=== PATIENT | female | born 1960 | race Caucasian/White ===

== ENCOUNTER 2016-04-07 11:43 | Inpatient (IN) | payer OTHER ==
[~2016-04-07] VITALS: Ht 154.9 cm; Wt 100.4 kg
[~2016-04-07 11:43] MED LIST: ATOR10TA60 PO; HYDR12.53 PO; METF500T4 PO; PROAIR HFA8.5 GM INH
[2016-04-07] MEDS ORDERED: IPRATRPIUM/ALBUTEROL 0.5/2.5MG 3 ML NEBU. NEB ONE (13:30)
[2016-04-07] MEDS ORDERED: methylPREDNISolone SOD SUCC PF 125 MG/2 ML VIAL. IV ONE (13:30)
[2016-04-07] MEDS ORDERED: IV NORMAL SALINE 1000ML BAG 1,000 ML IV SCH (13:30)
--- NOTE | 2016-04-07 13:40 | PHYS DOC ---
Past Medical History Past Medical History: Asthma, COPD, Diabetes-Type II, Hypertension Past Surgical History: No Surgical History Alcohol Use: None Drug Use: None Adult General Chief Complaint Chief Complaint: ABDOMINAL PAIN HPI HPI Patient is a 55 year old female who presents with complaint of cough, shortness of breath, and upper abdominal pain that started yesterday. The patient states that she is having belly pain secondary to her cough. Symptoms started suddenly. The patient went to see her primary physician this morning. Patient had a flu test which was positive. The patient was sent here due to respiratory distress. The patient denies any history of COPD or lung disease. The patient was found to have oxygen saturation in the upper 80s and was started on supplemental oxygen prior to arrival. Review of Systems Review of Systems Constitutional: Fever, chills, bodyaches [] Eyes: Denies change in visual acuity, redness, or eye pain [] HENT: Denies nasal congestion or sore throat [] Respiratory: Cough, shortness of breath [] Cardiovascular: Denies chest pain or edema [] GI: Abdominal pain, denies nausea, vomiting, bloody stools or diarrhea [] : Denies dysuria or hematuria [] Musculoskeletal: Denies back pain or joint pain [] Integument: Denies rash or skin lesions [] Neurologic: Denies headache, focal weakness or sensory changes [] Endocrine: Denies polyuria or polydipsia [] Current Medications Current Medications Current Medications Medications (Trade) Dose Ordered Sig/Marcus Start Time Stop Time Status Last Admin Dose Admin Acetaminophen (Tylenol) 650 mg PRN Q4HRS PRN 04/07/16 15:15 04/08/16 15:14 Albuterol/ Ipratropium (Duoneb) 3 ml RTQID 04/07/16 16:00 04/08/16 15:59 Fentanyl Citrate 50 mcg 50 mcg PRN Q2HR PRN 04/07/16 15:15 04/08/16 15:14 Methylprednisolone Sodium Succinate (Solu-Medrol 40mg Vial) 60 mg Q6HRS 04/07/16 18:00 UNV Methylprednisolone Sodium Succinate (Solu-Medrol 125mg Vial) 125 mg 1X ONCE 04/07/16 13:30 04/07/16 13:31 DC 04/07/16 13:37 125 MG Ondansetron HCl (Zofran) 4 mg PRN Q8HRS PRN 04/07/16 15:15 04/08/16 15:14 Oseltamivir Phosphate (Tamiflu) 75 mg BID 04/07/16 15:15 04/12/16 15:14 Sodium Chloride (Iv Sodium Chloride 0.9% 1000ml Bag) 1,000 ml @ 125 mls/hr Q8H 04/07/16 15:11 04/08/16 15:10 Allergies Allergies Allergies Coded Allergies Type Severity Reaction Last Updated Verified No Known Drug Allergies 02/08/16 No Physical Exam Physical Exam Constitutional: Alert, febrile, appears in mild to moderate restriction stress. [] HENT: Normocephalic, atraumatic, bilateral external ears normal, oropharynx moist, no oral exudates, nose normal. [] Eyes: PERRLA, EOMI, conjunctiva normal, no discharge. [] Neck: Normal range of motion, no tenderness, supple, no stridor. [] Cardiovascular: Tachycardia, regular rhythm, no murmur [] Lungs & Thorax: Moderately restricted air movement bilaterally, expiratory wheezes bilaterally, right lower lobe rales [] Abdomen: Bowel sounds normal, soft, no tenderness, no masses, no pulsatile masses. [] Skin: Warm, dry, no erythema, no rash. [] Back: No tenderness, no CVA tenderness. [] Extremities: No tenderness, no cyanosis, no clubbing, ROM intact, no edema. [] Neurologic: Alert and oriented X 3, normal motor function, normal sensory function, no focal deficits noted. [] Current Patient Data Vital Signs Vital Signs Date Time Temp Pulse Resp B/P Pulse Ox O2 Delivery O2 Flow Rate FiO2 04/07/16 15:16 20 170/72 94 Nasal Cannula 3 04/07/16 14:00 94 04/07/16 13:04 102 102.0 Lab Values Laboratory Tests Test 04/07/16 13:30 04/07/16 14:25 White Blood Count 11.3x10^3/uL (4.0-11.0) H Red Blood Count 5.17x10^6/uL (3.50-5.40) Hemoglobin 13.5g/dL (12.0-15.5) Hematocrit 41.4% (36.0-47.0) Mean Corpuscular Volume 80fL (79-100) Mean Corpuscular Hemoglobin 26pg (25-35) Mean Corpuscular Hemoglobin Concent 33g/dL (31-37) Red Cell Distribution Width 19.3% (11.5-14.5) H Platelet Count 250x10^3/uL (140-400) Neutrophils (%) (Auto) 88% (31-73) H Lymphocytes (%) (Auto) 8% (24-48) L Monocytes (%) (Auto) 4% (0-9) Eosinophils (%) (Auto) 0% (0-3) Basophils (%) (Auto) 0% (0-3) Neutrophils # (Auto) 10.0x10^3uL (1.8-7.7) H Lymphocytes # (Auto) 0.9x10^3/uL (1.0-4.8) L Monocytes # (Auto) 0.4x10^3/uL (0.0-1.1) Eosinophils # (Auto) 0.0x10^3/uL (0.0-0.7) Basophils # (Auto) 0.0x10^3/uL (0.0-0.2) Platelet Estimate Pending Lactic Acid Level 1.2mmol/L (0.4-2.0) Sodium Level 137mmol/L (136-145) Potassium Level 3.4mmol/L (3.5-5.1) L Chloride Level 97mmol/L (98-107) L Carbon Dioxide Level 27mmol/L (21-32) Anion Gap 13 (6-14) Blood Urea Nitrogen 15mg/dL (7-20) Creatinine 1.0mg/dL (0.6-1.0) Estimated GFR (Cockcroft-Gault) 57.4 BUN/Creatinine Ratio 15 (6-20) Glucose Level 165mg/dL (70-99) H Calcium Level 9.0mg/dL (8.5-10.1) Total Bilirubin 0.4mg/dL (0.2-1.0) Aspartate Amino Transferase (AST) 26U/L (15-37) Alanine Aminotransferase (ALT) 37U/L (14-59) Alkaline Phosphatase 94U/L (46-116) Total Protein 7.7g/dL (6.4-8.2) Albumin 3.2g/dL (3.4-5.0) L Albumin/Globulin Ratio 0.7 (1.0-1.7) L Laboratory Tests 04/07/16 13:30 Laboratory Tests 04/07/16 14:25 EKG EKG Not performed [] Radiology/Procedures Radiology/Procedures [facility] [address] [place] [address] IMAGING REPORT Signed PATIENT: GRACIA DOE ACCOUNT: [id number] : 1960 LOCATION: ER AGE: 55 SEX: F EXAM STATUS: REG ER ORD. PHYSICIAN: SIMA RG MD REASON: shortness of breath, COUGH, WEAKNESS, FATIGUE, SINCE YESTERDAY PROCEDURE: PORTABLE CHEST 1V Portable chest, 04/07/2016: History: Shortness of breath, cough, weakness The heart size and pulmonary vascularity are normal. The aortic knob is prominent. There is mild infiltrate laterally in the right lower chest. The left lung is clear. There is no evidence of pleural fluid. IMPRESSION: Mild peripheral infiltrate in the right base raising the possibility of pneumonia. Radiographic follow-up is suggested. DICTATED and SIGNED BY: MALISSA GIMENEZ MD DATE: 04/07/16 3578 CC: SIMA RG MD; JANN GARCIA MD ~ [] Course & Med Decision Making Course & Med Decision Making Pertinent Labs and Imaging studies reviewed. (See chart for details) Patient started on DuoNeb treatments in the emergency department. The patient will continue on supplemental oxygen due to continued hypoxia. Patient started on Tamiflu. I spoke with Dr. Holloway who accepted care of patient in hospital. Dragon Disclaimer Dragon Disclaimer This electronic medical record was generated, in whole or in part, using a voice recognition dictation system. Departure Departure Impression: Primary Impression: Influenza Additional Impressions: Hypoxia Pneumonia Disposition: ADMITTED INPATIENT Admitting Physician: Phuong Holloway Condition: GUARDED Referrals: JANN GARCIA MD (PCP) Problem Qualifiers Additional Impressions: Pneumonia Pneumonia type: due to influenza A virus Laterality: right Lung location: lower lobe of lung Qualified Code: J11.00 - Influenza due to unidentified influenza virus with unspecified type of pneumonia SIMA RG MD Apr 07, 2016 13:40
--- NOTE | 2016-04-07 13:49 | RAD ---
Portable chest, 04/07/2016: History: Shortness of breath, cough, weakness The heart size and pulmonary vascularity are normal. The aortic knob is prominent. There is mild infiltrate laterally in the right lower chest. The left lung is clear. There is no evidence of pleural fluid. IMPRESSION: Mild peripheral infiltrate in the right base raising the possibility of pneumonia. Radiographic follow-up is suggested.
[2016-04-07 13:53] LABS: BASO % 0 % (0-3); EOS % 0 % (0-3); HEMATOCRIT 41.4 % (36.0-47.0); HEMOGLOBIN 13.5 g/dL (12.0-15.5); LYMPH # 0.9 x10^3/uL (1.0-4.8); LYMPH % 8 % (24-48); MEAN CORPUSCULAR HEMOGLOBIN 26 pg (25-35); MEAN CORPUSCULAR HGB CONC 33 g/dL (31-37); MEAN CORPUSCULAR VOLUME 80 fL (79-100); MONO % 4 % (0-9); NEUT % 88 % (31-73); PLATELET COUNT 250 x10^3/uL (140-400); RED BLOOD COUNT 5.17 x10^6/uL (3.50-5.40); RED CELL DISTRIBUTION WIDTH 19.3 % (11.5-14.5); WHITE BLOOD COUNT 11.3 x10^3/uL (4.0-11.0)
[2016-04-07] MEDS ORDERED: ACETAMINOPHEN 325 MG TABLET. PO ONE (14:30)
[2016-04-07 14:45] LABS: GFR 57.4; POTASSIUM 3.4 mmol/L (3.5-5.1)
[2016-04-07 14:50] LABS: ALBUMIN 3.2 g/dL (3.4-5.0); ALBUMIN/GLOBULIN RATIO 0.7 (1.0-1.7); TOTAL BILIRUBIN 0.4 mg/dL (0.2-1.0); TOTAL PROTEIN 7.7 g/dL (6.4-8.2)
[2016-04-07] MEDS: OSELTAMIVIR 75 MG CAPSULE PO SCH ×2 (15:15→21:30)
[2016-04-07] MEDS ORDERED: FENTANYL PF 100 MCG/2 ML VIAL. IV PRN (15:15)
[2016-04-07] MEDS ORDERED: ONDANSETRON PF 4 MG/2 ML VIAL. IV PRN (15:15)
--- NOTE | 2016-04-07 17:34 | ACF ---
Admission Forms Criteria PULMONARY DISEASE GRG Clinical Indications for Admission to Inpatient Care ( Place 'X' for any and all applicable criteria): Hospital admission is needed for appropriate care of the patient because of ANY ONE of the following(1): [ ]I. Impending or actual respiratory arrest ( Use Respiratory Failure Criteria for severe respiratory disease and long-term mechanical ventilation patients) (4) [ ]II. Severe airflow or ventilation abnormalities (not responsive to emergency and observation care treatment as appropriate) as indicated by ANY ONE of the following(5)(6)(7)(8) : [ ]a) PCO2 > 42 mm Hg (5.6 kPa) and pH < 7.35 (new) [ ]b) Documented PCO2 increase > 5 mm Hg (0.7 kPa) from disease baseline [ ]c) Airflow measurements[A] < 60% of previous best or predicted ( e.g., PEF <300 L/minute) despite intensive emergent treatment[B] [ ]d) Required respiratory treatments that are performable only in acute inpatient setting [ ]III. Severe respiratory findings (not responsive to emergency and observation care treatment as appropriate) including ANY ONE of the following(5)(8)(9): [ ]a) Respiratory distress as indicated by ALL of the following(5)(10): [ ]i) Patient with ANY ONE of the following: [ ]1) Dyspnea (difficulty breathing) [ ]2) Abnormal breathing pattern (eg, chest retractions) [ ]3) Tachypnea [ ]4) Other evidence of difficulty breathing [ ]ii) Evidence of respiratory compromise indicated by ANY ONE of the following: [ ]1) Hypoxemia [ ]2) Altered mental status [ ]3) Other evidence of respiratory compromise (eg, pulmonary edema on chest x-ray) [ ]b) Stridor [ ]c) Gross hemoptysis(11) [ ]d) Acute cyanosis [X]IV. High-risk pulmonary infection as indicated by ANY ONE of the following( 19)(20)(21)(22): [ ]a) Temperature less than 95 degrees F(35 degrees C) or greater than 103.1 degrees F(39.5 degrees C) [ ]b) Hemodynamic instability that remains after emergency or observation level care (as appropriate) [ ]c) Immunocompromised patient (eg, AIDS, post transplant, neutropenic) [ ]d) History of severe COPD [ ]e) History of severely symptomatic congestive heart failure [ ]f) Other high-risk comorbidity (eg, poorly controlled diabetes, cirrhosis, chronic renal insufficiency) [X]g) Hypoxemia (new) [ ]h) Outpatient, observation, or recovery facility therapy has failed, is not appropriate, or is not feasible [ ]V. Severe atelectasis or lung collapse(15)(16) [ ]. Tuberculosis requiring inpatient treatment as indicated by ANY ONE of the following(17)(18): [ ]a) New positive acid-fast bacilli sputum smear [ ]b) Positive acid-fast bacilli smear (under current treatment), with ANY ONE of the following: [ ]i) Unexposed household contacts [ ]ii) Infants or immunosuppressed household contacts [ ]iii) Patient unable or unwilling to avoid exposing others [ ]iv) Severe immunocompromised patient (eg, AIDS, post transplant, neutropenic) [ ]VII. Empyema or lung abscess(13)(14) [ ]VIII. Severe pulmonary arterial hypertension or pulmonary vascular disease requiring inpatient care indicated by ANY ONE of the following(24)(25): [ ]a) Initiation or change of vasodilators (IV, subcutaneous, or inhaled) or other vasoactive medications needed [ ]b) IV anticoagulation needed (eg, immediate anticoagulation necessary, alternatives not appropriate) [ ]c) Arterial or pulmonary artery catheter monitoring needed due to infusion or other treatment [ ]IX. Chronic lung disease with severe deterioration (not responsive to emergency and observation care treatment as appropriate) as indicated by ANY ONE of the following (6)(12): [ ]a) SaO2 5% below baseline in patient with chronic hypoxemia [ ]b) New requirement for supplemental oxygen to keep SaO2 at baseline or acceptable level [ ]c) Required supplemental oxygen performable only in acute inpatient setting [ ]d) Severe airflow or ventilation abnormalities [ ]e) Rapid rate of exacerbation onset [ ]f) Previously mobile patient unable to walk between rooms [ ]g) Inability to eat or sleep due to dyspnea [ ]h) Altered mental status [ ]X. Cystic fibrosis with severe deterioration as indicated by ANY ONE of the following(26)(27): [ ]a) Severe exacerbation that does not respond to intensified home therapy [ ]b) Pneumonia [ ]c) Hemoptysis [ ]d) Atelectasis [ ]e) Pneumothorax [ ]f) Respiratory failure [ ]g) Severe exacerbation with patient unable to perform prescribed treatments at home [ ]XI. Severe right heart failure as indicated by ANY ONE of the following(24) (25): [ ]a) Increasing organ failure (eg, liver congestion with significant and worsening or new elevation of transaminases) [ ]b) Anasarca [ ]c) Angina that requires inpatient care (eg, not treatable in emergency or observation level of care) [ ]d) Respiratory distress [ ]e) Syncope [ ]f) SBP < 90 mm Hg (new) [ ]XII. Injury requiring inpatient care (medical) as indicated by ANY ONE of the following(28): [ ]a) Significant inhalation injury (eg, smoke inhalation, other toxic inhalation) (29)(30)(31) [ ]b) Airway obstruction that remains or is unstable after emergency or observation level care(32) [ ]c) Severe pain requiring acute inpatient management [ ]d) Lung contusion [ ]e) Bronchial tree injury [ ]f) Air or fat emboli(33) [ ]g) Other injury not treatable in emergency or observation level care (eg, hemothorax) (34) [ ]XIII. Pulmonary hemorrhage or significant hemoptysis(11)(35)(36) [ ]XIV. Inpatient palliative care needed[C](37)(38)(39)(40) [ ]XV. Complications of lung transplant (eg, rejection, failure, respiratory infection) (23) [ ]XVI. Pulmonary Disease and ANY ONE of the following: [ ]a) General Admission Criteria [ ]b) Pediatric General Admission Criteria The original [facility] content created by [facility] has been revised. The portions of the content which have been revised are identified through the use of italic text or in bold, and [facility] has neither reviewed nor approved the modified material. All other unmodified content is copyright [facility]. Please see references footnoted in the original [facility] edition 2016 Admission Criteria Met?: Yes ELISEO FERRIS Apr 07, 2016 17:34
[2016-04-07 17:49] LABS: % BASOS 1 % (0-3)
[2016-04-07 17:51] LABS: ANISOCYTOSIS SLIGHT; PLT ESTIMATE ADEQUATE (ADEQUATE); TOXIC GRANULATION SLIGHT
[2016-04-07] MEDS: IPRATRPIUM/ALBUTEROL 0.5/2.5MG 3 ML NEBU. NEB SCH (18:15)
[2016-04-07 19:00] VITALS: BP 122/62
--- NOTE | 2016-04-07 19:48 | PDOC ---
PULMONARY PROGRESS NOTES Vitals Vital Signs Date Time Temp Pulse Resp B/P Pulse Ox O2 Delivery O2 Flow Rate FiO2 04/07/16 18:15 92 Nasal Cannula 3.0 04/07/16 17:32 81 128/64 04/07/16 16:15 20 04/07/16 13:04 102 102.0 Labs Laboratory Tests Test 04/07/16 13:30 04/07/16 14:25 White Blood Count 11.3x10^3/uL (4.0-11.0) Red Blood Count 5.17x10^6/uL (3.50-5.40) Hemoglobin 13.5g/dL (12.0-15.5) Hematocrit 41.4% (36.0-47.0) Mean Corpuscular Volume 80fL (79-100) Mean Corpuscular Hemoglobin 26pg (25-35) Mean Corpuscular Hemoglobin Concent 33g/dL (31-37) Red Cell Distribution Width 19.3% (11.5-14.5) Platelet Count 250x10^3/uL (140-400) Neutrophils (%) (Auto) 88% (31-73) Lymphocytes (%) (Auto) 8% (24-48) Monocytes (%) (Auto) 4% (0-9) Eosinophils (%) (Auto) 0% (0-3) Basophils (%) (Auto) 0% (0-3) Neutrophils # (Auto) 10.0x10^3uL (1.8-7.7) Lymphocytes # (Auto) 0.9x10^3/uL (1.0-4.8) Monocytes # (Auto) 0.4x10^3/uL (0.0-1.1) Eosinophils # (Auto) 0.0x10^3/uL (0.0-0.7) Basophils # (Auto) 0.0x10^3/uL (0.0-0.2) Segmented Neutrophils % 52% (35-66) Band Neutrophils % 29% (0-9) Lymphocytes % 13% (24-48) Monocytes % 5% (0-10) Basophils % 1% (0-3) Toxic Granulation Slight Platelet Estimate Adequate (ADEQUATE) Anisocytosis Slight Lactic Acid Level 1.2mmol/L (0.4-2.0) Sodium Level 137mmol/L (136-145) Potassium Level 3.4mmol/L (3.5-5.1) Chloride Level 97mmol/L (98-107) Carbon Dioxide Level 27mmol/L (21-32) Anion Gap 13 (6-14) Blood Urea Nitrogen 15mg/dL (7-20) Creatinine 1.0mg/dL (0.6-1.0) Estimated GFR (Cockcroft-Gault) 57.4 BUN/Creatinine Ratio 15 (6-20) Glucose Level 165mg/dL (70-99) Calcium Level 9.0mg/dL (8.5-10.1) Total Bilirubin 0.4mg/dL (0.2-1.0) Aspartate Amino Transf (AST/SGOT) 26U/L (15-37) Alanine Aminotransferase (ALT/SGPT) 37U/L (14-59) Alkaline Phosphatase 94U/L (46-116) Total Protein 7.7g/dL (6.4-8.2) Albumin 3.2g/dL (3.4-5.0) Albumin/Globulin Ratio 0.7 (1.0-1.7) Laboratory Tests Test 04/07/16 13:30 04/07/16 14:25 White Blood Count 11.3x10^3/uL (4.0-11.0) Red Blood Count 5.17x10^6/uL (3.50-5.40) Hemoglobin 13.5g/dL (12.0-15.5) Hematocrit 41.4% (36.0-47.0) Mean Corpuscular Volume 80fL (79-100) Mean Corpuscular Hemoglobin 26pg (25-35) Mean Corpuscular Hemoglobin Concent 33g/dL (31-37) Red Cell Distribution Width 19.3% (11.5-14.5) Platelet Count 250x10^3/uL (140-400) Neutrophils (%) (Auto) 88% (31-73) Lymphocytes (%) (Auto) 8% (24-48) Monocytes (%) (Auto) 4% (0-9) Eosinophils (%) (Auto) 0% (0-3) Basophils (%) (Auto) 0% (0-3) Neutrophils # (Auto) 10.0x10^3uL (1.8-7.7) Lymphocytes # (Auto) 0.9x10^3/uL (1.0-4.8) Monocytes # (Auto) 0.4x10^3/uL (0.0-1.1) Eosinophils # (Auto) 0.0x10^3/uL (0.0-0.7) Basophils # (Auto) 0.0x10^3/uL (0.0-0.2) Segmented Neutrophils % 52% (35-66) Band Neutrophils % 29% (0-9) Lymphocytes % 13% (24-48) Monocytes % 5% (0-10) Basophils % 1% (0-3) Toxic Granulation Slight Platelet Estimate Adequate (ADEQUATE) Anisocytosis Slight Lactic Acid Level 1.2mmol/L (0.4-2.0) Sodium Level 137mmol/L (136-145) Potassium Level 3.4mmol/L (3.5-5.1) Chloride Level 97mmol/L (98-107) Carbon Dioxide Level 27mmol/L (21-32) Anion Gap 13 (6-14) Blood Urea Nitrogen 15mg/dL (7-20) Creatinine 1.0mg/dL (0.6-1.0) Estimated GFR (Cockcroft-Gault) 57.4 BUN/Creatinine Ratio 15 (6-20) Glucose Level 165mg/dL (70-99) Calcium Level 9.0mg/dL (8.5-10.1) Total Bilirubin 0.4mg/dL (0.2-1.0) Aspartate Amino Transf (AST/SGOT) 26U/L (15-37) Alanine Aminotransferase (ALT/SGPT) 37U/L (14-59) Alkaline Phosphatase 94U/L (46-116) Total Protein 7.7g/dL (6.4-8.2) Albumin 3.2g/dL (3.4-5.0) Albumin/Globulin Ratio 0.7 (1.0-1.7) Medications Active Scripts Medications Dose Route/Sig Days Date Category Metformin Hcl 500 Mg Tablet 1 Tab PO BID 02/08/16 Reported Proair Hfa Inhaler (Albuterol Sulfate) 8.5 Gm Hfa.aer.ad 1 Puff INH PRN Q6HRS PRN 02/08/16 Reported Hydrochlorothiazide Capsule (Hydrochlorothiazide) 12.5 Mg Capsule 1 Cap PO DAILY 02/08/16 Reported Atorvastatin Calcium 10 Mg Tablet 1 Tab PO DAILY 02/08/16 Reported Impression . ACUTE RESP FAILURE/PNEUMONIA INFLUENZA SEE ORDERS THANKS ESTRELLA HEATH MD Apr 07, 2016 19:48
[2016-04-07] MEDS ORDERED: ALBUTEROL SULFATE 2.5 MG/3 ML NEBU. NEB PRN (20:00)
[2016-04-07] MEDS: IV NORMAL SALINE 1000ML BAG 1,000 ML IV SCH ×2 (21:14→23:11)
[2016-04-07] MEDS: ENOXAPARIN 40 MG/0.4 ML DISP.SYRIN. SQ SCH (21:18)
[2016-04-07] MEDS: ACETAMINOPHEN 325 MG TABLET. PO PRN (21:18)
[2016-04-07] MEDS: methylPREDNISolone SOD SUCC PF 125 MG/2 ML VIAL. IV SCH (21:19)
[2016-04-07] MEDS: CEFTRIAXONE SODIUM 1 GM in IV NORMAL SALINE 50ML 50 ML IV SCH (21:20)
[2016-04-07] MEDS: DOXYCYCLINE HYCLATE 100 MG in IV DEXTROSE 5% 100 ML IV SCH (22:53)
[2016-04-07 23:00] VITALS: BP 129/77
[2016-04-08] MEDS: ACETAMINOPHEN 325 MG TABLET. PO PRN (01:35)
[2016-04-08] MEDS: methylPREDNISolone SOD SUCC PF 125 MG/2 ML VIAL. IV SCH ×4 (01:36→17:34)
[2016-04-08] MEDS ORDERED: ESOM40CA PO (02:33)
[2016-04-08] MEDS ORDERED: METF750T2 PO (02:33)
[2016-04-08] MEDS ORDERED: FEXO180T81 PO (02:33)
[2016-04-08] MEDS ORDERED: ESTR1TAB15 PO (02:34)
[2016-04-08 03:00] VITALS: BP 121/75
--- NOTE | 2016-04-08 06:11 | PDOC ---
PULMONARY PROGRESS NOTES Vitals Vital Signs Date Time Temp Pulse Resp B/P Pulse Ox O2 Delivery O2 Flow Rate FiO2 04/08/16 03:00 97.5 91 20 121/75 93 Venturi Mask 4.0 97.5 Labs Laboratory Tests Test 04/07/16 13:30 04/07/16 14:25 04/07/16 21:12 White Blood Count 11.3x10^3/uL (4.0-11.0) Red Blood Count 5.17x10^6/uL (3.50-5.40) Hemoglobin 13.5g/dL (12.0-15.5) Hematocrit 41.4% (36.0-47.0) Mean Corpuscular Volume 80fL (79-100) Mean Corpuscular Hemoglobin 26pg (25-35) Mean Corpuscular Hemoglobin Concent 33g/dL (31-37) Red Cell Distribution Width 19.3% (11.5-14.5) Platelet Count 250x10^3/uL (140-400) Neutrophils (%) (Auto) 88% (31-73) Lymphocytes (%) (Auto) 8% (24-48) Monocytes (%) (Auto) 4% (0-9) Eosinophils (%) (Auto) 0% (0-3) Basophils (%) (Auto) 0% (0-3) Neutrophils # (Auto) 10.0x10^3uL (1.8-7.7) Lymphocytes # (Auto) 0.9x10^3/uL (1.0-4.8) Monocytes # (Auto) 0.4x10^3/uL (0.0-1.1) Eosinophils # (Auto) 0.0x10^3/uL (0.0-0.7) Basophils # (Auto) 0.0x10^3/uL (0.0-0.2) Segmented Neutrophils % 52% (35-66) Band Neutrophils % 29% (0-9) Lymphocytes % 13% (24-48) Monocytes % 5% (0-10) Basophils % 1% (0-3) Toxic Granulation Slight Platelet Estimate Adequate (ADEQUATE) Anisocytosis Slight Lactic Acid Level 1.2mmol/L (0.4-2.0) Sodium Level 137mmol/L (136-145) Potassium Level 3.4mmol/L (3.5-5.1) Chloride Level 97mmol/L (98-107) Carbon Dioxide Level 27mmol/L (21-32) Anion Gap 13 (6-14) Blood Urea Nitrogen 15mg/dL (7-20) Creatinine 1.0mg/dL (0.6-1.0) Estimated GFR (Cockcroft-Gault) 57.4 BUN/Creatinine Ratio 15 (6-20) Glucose Level 165mg/dL (70-99) Calcium Level 9.0mg/dL (8.5-10.1) Total Bilirubin 0.4mg/dL (0.2-1.0) Aspartate Amino Transf (AST/SGOT) 26U/L (15-37) Alanine Aminotransferase (ALT/SGPT) 37U/L (14-59) Alkaline Phosphatase 94U/L (46-116) Total Protein 7.7g/dL (6.4-8.2) Albumin 3.2g/dL (3.4-5.0) Albumin/Globulin Ratio 0.7 (1.0-1.7) Glucose (Fingerstick) 193mg/dL (70-99) Laboratory Tests Test 04/07/16 13:30 04/07/16 14:25 04/07/16 21:12 White Blood Count 11.3x10^3/uL (4.0-11.0) Red Blood Count 5.17x10^6/uL (3.50-5.40) Hemoglobin 13.5g/dL (12.0-15.5) Hematocrit 41.4% (36.0-47.0) Mean Corpuscular Volume 80fL (79-100) Mean Corpuscular Hemoglobin 26pg (25-35) Mean Corpuscular Hemoglobin Concent 33g/dL (31-37) Red Cell Distribution Width 19.3% (11.5-14.5) Platelet Count 250x10^3/uL (140-400) Neutrophils (%) (Auto) 88% (31-73) Lymphocytes (%) (Auto) 8% (24-48) Monocytes (%) (Auto) 4% (0-9) Eosinophils (%) (Auto) 0% (0-3) Basophils (%) (Auto) 0% (0-3) Neutrophils # (Auto) 10.0x10^3uL (1.8-7.7) Lymphocytes # (Auto) 0.9x10^3/uL (1.0-4.8) Monocytes # (Auto) 0.4x10^3/uL (0.0-1.1) Eosinophils # (Auto) 0.0x10^3/uL (0.0-0.7) Basophils # (Auto) 0.0x10^3/uL (0.0-0.2) Segmented Neutrophils % 52% (35-66) Band Neutrophils % 29% (0-9) Lymphocytes % 13% (24-48) Monocytes % 5% (0-10) Basophils % 1% (0-3) Toxic Granulation Slight Platelet Estimate Adequate (ADEQUATE) Anisocytosis Slight Lactic Acid Level 1.2mmol/L (0.4-2.0) Sodium Level 137mmol/L (136-145) Potassium Level 3.4mmol/L (3.5-5.1) Chloride Level 97mmol/L (98-107) Carbon Dioxide Level 27mmol/L (21-32) Anion Gap 13 (6-14) Blood Urea Nitrogen 15mg/dL (7-20) Creatinine 1.0mg/dL (0.6-1.0) Estimated GFR (Cockcroft-Gault) 57.4 BUN/Creatinine Ratio 15 (6-20) Glucose Level 165mg/dL (70-99) Calcium Level 9.0mg/dL (8.5-10.1) Total Bilirubin 0.4mg/dL (0.2-1.0) Aspartate Amino Transf (AST/SGOT) 26U/L (15-37) Alanine Aminotransferase (ALT/SGPT) 37U/L (14-59) Alkaline Phosphatase 94U/L (46-116) Total Protein 7.7g/dL (6.4-8.2) Albumin 3.2g/dL (3.4-5.0) Albumin/Globulin Ratio 0.7 (1.0-1.7) Glucose (Fingerstick) 193mg/dL (70-99) Medications Active Scripts Medications Dose Route/Sig Days Date Category Metformin Hcl 500 Mg Tablet 1 Tab PO BID 02/08/16 Reported Proair Hfa Inhaler (Albuterol Sulfate) 8.5 Gm Hfa.aer.ad 1 Puff INH PRN Q6HRS PRN 02/08/16 Reported Hydrochlorothiazide Capsule (Hydrochlorothiazide) 12.5 Mg Capsule 1 Cap PO DAILY 02/08/16 Reported Atorvastatin Calcium 10 Mg Tablet 1 Tab PO DAILY 02/08/16 Reported Impression . ACUTE RESP FAILURE/PNEUMONIA INFLUENZA SEE ORDERS THANKS ESTRELLA HEATH MD Apr 08, 2016 06:11
[2016-04-08 06:43] LABS: BASO % 0 % (0-3); EOS % 0 % (0-3); HEMATOCRIT 39.5 % (36.0-47.0); HEMOGLOBIN 12.9 g/dL (12.0-15.5); LYMPH # 1.5 x10^3/uL (1.0-4.8); LYMPH % 10 % (24-48); MEAN CORPUSCULAR HEMOGLOBIN 26 pg (25-35); MEAN CORPUSCULAR HGB CONC 33 g/dL (31-37); MEAN CORPUSCULAR VOLUME 79 fL (79-100); MONO % 3 % (0-9); NEUT % 87 % (31-73); PLATELET COUNT 234 x10^3/uL (140-400); RED BLOOD COUNT 4.98 x10^6/uL (3.50-5.40); RED CELL DISTRIBUTION WIDTH 19.2 % (11.5-14.5); WHITE BLOOD COUNT 15.3 x10^3/uL (4.0-11.0)
[2016-04-08 07:00] VITALS: BP 128/80
[2016-04-08 07:00] LABS: CALCIUM 8.8 mg/dL (8.5-10.1); CREATININE 0.9 mg/dL (0.6-1.0); GFR 64.8; POTASSIUM 3.8 mmol/L (3.5-5.1)
--- NOTE | 2016-04-08 07:09 | CONS ---
DATE OF CONSULTATION: 04/07/2016 ATTENDING PHYSICIAN: Dr. Phuong Holloway. REASON FOR CONSULTATION: The patient seen in pulmonary consultation at the request of Dr. Holloway for increasing shortness of breath, hypoxemia. HISTORY OF PRESENT ILLNESS: The patient is a 55-year-old female presented with complaints of shortness of air up to abdominal discomfort, some cough, mostly nonproductive, subjective fever. She presented to the Emergency Room, had a flu test, which was positive. She was in respiratory distress. She was admitted. She was on 4 liters oxygen saturation was in the upper low 80s and was asked to see in consultation. Upon my visit, the patient was in no significant distress. She was mouth breathing. She used to smoke. She does not wear oxygen at home. FAMILY HISTORY: Remarkable for COPD, type 2 diabetes, hypertension. HISTORY: No surgical history. REVIEW OF SYSTEMS: As indicated above, otherwise, a 10-point system was reviewed and negative. CURRENT MEDICATION: List was reviewed. Please see the MRAD. MEDICATIONS: List was likewise reviewed. SOCIAL HISTORY: She quit tobacco. She denies any alcohol intake. PHYSICAL EXAMINATION: GENERAL: The patient was in a recliner 4 L of oxygen supplementation, saturation 84%. VITAL SIGNS: T-max was 102.0. HEENT: Eyes, the sclerae were nonicteric. NECK: Jugular venous distention was not elevated. No lymphadenopathy. CHEST: Full expansion. LUNGS: Rales in the bases. No wheezes. CARDIOVASCULAR: Regular rate and rhythm with S1, S2, no S3. ABDOMEN: Soft, nontender, nondistended. EXTREMITIES: No clubbing, cyanosis or edema. NEUROLOGIC: The patient was awake, alert, following commands. A detailed neuro exam was not performed. Chest x-ray was reviewed. There was infiltrate in the right base. LABORATORY DATA: Reviewed. White count was slightly elevated. Electrolytes were noted. Albumin was slightly low. IMPRESSION: 1. Acute respiratory failure, multifactorial. 2. Acute exacerbation of chronic obstructive pulmonary disease. 3. Pneumonia was suspect gram-positive, possibly gram negative. 4. Fever secondary to above. PLAN: 1. 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 2. Add Rocephin and doxycycline. 3. Solu-Medrol. 4. Nebulized treatments. 5. DVT prophylaxis. I do appreciate the privilege in sharing in patient's care. ESTRELLA HEATH MD DR: SHON/paresh JOB#: [id number] / [id number]
[2016-04-08] MEDS ORDERED: DEXTROSE 50% 25 GM / 50ML DISP.SYRIN. IV PRN (07:45)
[2016-04-08] MEDS: IPRATRPIUM/ALBUTEROL 0.5/2.5MG 3 ML NEBU. NEB SCH ×4 (07:46→20:04)
--- NOTE | 2016-04-08 07:49 | PDOC ---
PROGRESS NOTES Subjective Subjective Patient reports breathing is a little better than at admission, still feels SOA. Objective Objective Vital Signs Date Time Temp Pulse Resp B/P Pulse Ox O2 Delivery O2 Flow Rate FiO2 04/08/16 03:00 97.5 91 20 121/75 93 Venturi Mask 4.0 97.5 Intake and Output 04/08/16 07:00 Intake Total 1000 ml Balance 1000 ml Intake IV Total 1000 ml # Voids 6 Physical Exam Abdomen: Normal bowel sounds, Soft, No tenderness Heart: Regular rate Extremities: No edema General: Alert, Oriented X3, No acute distress Lungs: Other (BS decreased throughout, scant wheezing heard) Assessment Assessment Problems Medical Problems: (1) Hypoxia Status: Acute (2) Influenza Status: Acute (3) Influenza A Status: Acute (4) Pneumonia Status: Acute Plan Plan of Care 1. Acute hypoxic respiratory failure with Influenza, pneumonia and AE COPD - mildly improved overnight, still requiring significant amount of O2 to maintain sats. Continue Tamiflu, abx, Solumedrol, O2 and nebs, Dr Mcintyre following. Patient is a smoker, states she intends to quit. Denies needing a nicotine patch at this time. 2. DM2 - FSBG elevated due to the Solumedrol, continue her usual Metformin and use SS insulin as needed. 3. HTN - resume home med. 4. AR - continue meds daily. 5. GERD - continue PPI. Comment Review of Relevant I have reviewed the following items marily (where applicable) has been applied. Labs Laboratory Tests Test 04/07/16 13:30 04/07/16 14:25 04/07/16 21:12 04/08/16 06:20 White Blood Count 11.3x10^3/uL (4.0-11.0) 15.3x10^3/uL (4.0-11.0) Red Blood Count 5.17x10^6/uL (3.50-5.40) 4.98x10^6/uL (3.50-5.40) Hemoglobin 13.5g/dL (12.0-15.5) 12.9g/dL (12.0-15.5) Hematocrit 41.4% (36.0-47.0) 39.5% (36.0-47.0) Mean Corpuscular Volume 80fL (79-100) 79fL (79-100) Mean Corpuscular Hemoglobin 26pg (25-35) 26pg (25-35) Mean Corpuscular Hemoglobin Concent 33g/dL (31-37) 33g/dL (31-37) Red Cell Distribution Width 19.3% (11.5-14.5) 19.2% (11.5-14.5) Platelet Count 250x10^3/uL (140-400) 234x10^3/uL (140-400) Neutrophils (%) (Auto) 88% (31-73) 87% (31-73) Lymphocytes (%) (Auto) 8% (24-48) 10% (24-48) Monocytes (%) (Auto) 4% (0-9) 3% (0-9) Eosinophils (%) (Auto) 0% (0-3) 0% (0-3) Basophils (%) (Auto) 0% (0-3) 0% (0-3) Neutrophils # (Auto) 10.0x10^3uL (1.8-7.7) 13.4x10^3uL (1.8-7.7) Lymphocytes # (Auto) 0.9x10^3/uL (1.0-4.8) 1.5x10^3/uL (1.0-4.8) Monocytes # (Auto) 0.4x10^3/uL (0.0-1.1) 0.4x10^3/uL (0.0-1.1) Eosinophils # (Auto) 0.0x10^3/uL (0.0-0.7) 0.0x10^3/uL (0.0-0.7) Basophils # (Auto) 0.0x10^3/uL (0.0-0.2) 0.0x10^3/uL (0.0-0.2) Segmented Neutrophils % 52% (35-66) Band Neutrophils % 29% (0-9) Lymphocytes % 13% (24-48) Monocytes % 5% (0-10) Basophils % 1% (0-3) Toxic Granulation Slight Platelet Estimate Adequate (ADEQUATE) Anisocytosis Slight Lactic Acid Level 1.2mmol/L (0.4-2.0) Sodium Level 137mmol/L (136-145) 143mmol/L (136-145) Potassium Level 3.4mmol/L (3.5-5.1) 3.8mmol/L (3.5-5.1) Chloride Level 97mmol/L (98-107) 103mmol/L (98-107) Carbon Dioxide Level 27mmol/L (21-32) 29mmol/L (21-32) Anion Gap 13 (6-14) 11 (6-14) Blood Urea Nitrogen 15mg/dL (7-20) 17mg/dL (7-20) Creatinine 1.0mg/dL (0.6-1.0) 0.9mg/dL (0.6-1.0) Estimated GFR (Cockcroft-Gault) 57.4 64.8 BUN/Creatinine Ratio 15 (6-20) Glucose Level 165mg/dL (70-99) 217mg/dL (70-99) Calcium Level 9.0mg/dL (8.5-10.1) 8.8mg/dL (8.5-10.1) Total Bilirubin 0.4mg/dL (0.2-1.0) Aspartate Amino Transf (AST/SGOT) 26U/L (15-37) Alanine Aminotransferase (ALT/SGPT) 37U/L (14-59) Alkaline Phosphatase 94U/L (46-116) Total Protein 7.7g/dL (6.4-8.2) Albumin 3.2g/dL (3.4-5.0) Albumin/Globulin Ratio 0.7 (1.0-1.7) Glucose (Fingerstick) 193mg/dL (70-99) Laboratory Tests Test 04/07/16 13:30 04/07/16 14:25 04/07/16 21:12 04/08/16 06:20 White Blood Count 11.3x10^3/uL (4.0-11.0) 15.3x10^3/uL (4.0-11.0) Red Blood Count 5.17x10^6/uL (3.50-5.40) 4.98x10^6/uL (3.50-5.40) Hemoglobin 13.5g/dL (12.0-15.5) 12.9g/dL (12.0-15.5) Hematocrit 41.4% (36.0-47.0) 39.5% (36.0-47.0) Mean Corpuscular Volume 80fL (79-100) 79fL (79-100) Mean Corpuscular Hemoglobin 26pg (25-35) 26pg (25-35) Mean Corpuscular Hemoglobin Concent 33g/dL (31-37) 33g/dL (31-37) Red Cell Distribution Width 19.3% (11.5-14.5) 19.2% (11.5-14.5) Platelet Count 250x10^3/uL (140-400) 234x10^3/uL (140-400) Neutrophils (%) (Auto) 88% (31-73) 87% (31-73) Lymphocytes (%) (Auto) 8% (24-48) 10% (24-48) Monocytes (%) (Auto) 4% (0-9) 3% (0-9) Eosinophils (%) (Auto) 0% (0-3) 0% (0-3) Basophils (%) (Auto) 0% (0-3) 0% (0-3) Neutrophils # (Auto) 10.0x10^3uL (1.8-7.7) 13.4x10^3uL (1.8-7.7) Lymphocytes # (Auto) 0.9x10^3/uL (1.0-4.8) 1.5x10^3/uL (1.0-4.8) Monocytes # (Auto) 0.4x10^3/uL (0.0-1.1) 0.4x10^3/uL (0.0-1.1) Eosinophils # (Auto) 0.0x10^3/uL (0.0-0.7) 0.0x10^3/uL (0.0-0.7) Basophils # (Auto) 0.0x10^3/uL (0.0-0.2) 0.0x10^3/uL (0.0-0.2) Segmented Neutrophils % 52% (35-66) Band Neutrophils % 29% (0-9) Lymphocytes % 13% (24-48) Monocytes % 5% (0-10) Basophils % 1% (0-3) Toxic Granulation Slight Platelet Estimate Adequate (ADEQUATE) Anisocytosis Slight Lactic Acid Level 1.2mmol/L (0.4-2.0) Sodium Level 137mmol/L (136-145) 143mmol/L (136-145) Potassium Level 3.4mmol/L (3.5-5.1) 3.8mmol/L (3.5-5.1) Chloride Level 97mmol/L (98-107) 103mmol/L (98-107) Carbon Dioxide Level 27mmol/L (21-32) 29mmol/L (21-32) Anion Gap 13 (6-14) 11 (6-14) Blood Urea Nitrogen 15mg/dL (7-20) 17mg/dL (7-20) Creatinine 1.0mg/dL (0.6-1.0) 0.9mg/dL (0.6-1.0) Estimated GFR (Cockcroft-Gault) 57.4 64.8 BUN/Creatinine Ratio 15 (6-20) Glucose Level 165mg/dL (70-99) 217mg/dL (70-99) Calcium Level 9.0mg/dL (8.5-10.1) 8.8mg/dL (8.5-10.1) Total Bilirubin 0.4mg/dL (0.2-1.0) Aspartate Amino Transf (AST/SGOT) 26U/L (15-37) Alanine Aminotransferase (ALT/SGPT) 37U/L (14-59) Alkaline Phosphatase 94U/L (46-116) Total Protein 7.7g/dL (6.4-8.2) Albumin 3.2g/dL (3.4-5.0) Albumin/Globulin Ratio 0.7 (1.0-1.7) Glucose (Fingerstick) 193mg/dL (70-99) Medications Current Medications Sodium Chloride (Iv Sodium Chloride 0.9% 1000ml Bag) 1,000 ml @ 1,000 mls/hr Q1H IV Last administered on 04/07/16 13:37; Start 04/07/16 at 13:30; Stop at 14:29; Status DC Albuterol/ Ipratropium (Duoneb) 3 ml 1X ONCE NEB Last administered on 13:45; Start 04/07/16 at 13:30; Stop 04/07/16 at 13:31; Status DC Methylprednisolone Sodium Succinate (Solu-Medrol 125mg Vial) 125 mg 1X ONCE IV Last administered on 04/07/16 13:37; Start 04/07/16 at 13:30; Stop 04/07/16 at 13:31; Status DC Acetaminophen (Tylenol) 650 mg 1X ONCE PO Last administered on 04/07/16 14:48 ; Start 04/07/16 at 14:30; Stop 04/07/16 at 14:31; Status DC Ondansetron HCl (Zofran) 4 mg PRN Q8HRS PRN IV NAUSEA/VOMITING; Start 04/07/16 at 15:15; Stop 04/08/16 at 15:14 Fentanyl Citrate 50 mcg 50 mcg PRN Q2HR PRN IV PAIN; Start 04/07/16 at 15:15; Stop 04/08/16 at 15:14 Sodium Chloride (Iv Sodium Chloride 0.9% 1000ml Bag) 1,000 ml @ 125 mls/hr Q8H IV Last administered on 04/07/16 21:14; Start 04/07/16 at 15:11; Stop at 15:10 Acetaminophen (Tylenol) 650 mg PRN Q4HRS PRN PO FEVER Last administered on 04/08 01:35; Start 04/07/16 at 15:15; Stop 04/08/16 at 15:14 Albuterol/ Ipratropium (Duoneb) 3 ml RTQID NEB Last administered on 04/07/16 18:15; Start 04/07/16 at 16:00; Stop 04/08/16 at 15:59 Oseltamivir Phosphate (Tamiflu) 75 mg BID PO Last administered on 04/07/16 21: 30; Start 04/07/16 at 15:15; Stop 04/12/16 at 15:14 Methylprednisolone Sodium Succinate 60 mg 60 mg Q6HRS IV Last administered on 05:39; Start 04/07/16 at 18:00 Ceftriaxone Sodium 1 gm/ Sodium Chloride 50 ml @ 100 mls/hr Q24H IV Last administered on 04/07/16 21:20; Start 04/07/16 at 20:00 Doxycycline Hyclate/Dextrose 100 ml @ 50 mls/hr Q12HR IV Last administered on 04/07/16 22:53; Start 04/07/16 at 21:00 Albuterol Sulfate (Ventolin Neb Soln) 2.5 mg PRN Q2HR PRN NEB DYSPNEA; Start at 20:00 Enoxaparin Sodium (Lovenox 40mg Syringe) 40 mg Q12HR SQ Last administered on 21:18; Start 04/07/16 at 21:00 Active Scripts Active Reported Estradiol 1 Mg Tablet 1 Tab PO DAILY Nexium Capsule (Esomeprazole Magnesium) 40 Mg Capsule.dr 1 Cap PO PRN DAILY PRN Nupur Allergy (Fexofenadine Hcl) 180 Mg Tablet 1 Tab PO DAILY Metformin Hcl Er (Metformin Hcl) 750 Mg Tab.er.24h 1 Tab PO HS Proair Hfa Inhaler (Albuterol Sulfate) 8.5 Gm Hfa.aer.ad 1 Puff INH PRN Q6HRS PRN Hydrochlorothiazide Capsule (Hydrochlorothiazide) 12.5 Mg Capsule 1 Cap PO HS Atorvastatin Calcium 10 Mg Tablet 1 Tab PO HS Vitals/I & O Vital Sign - Last 24 Hours 04/07/16 04/07/16 04/07/16 04/07/16 13:04 13:48 14:00 15:00 Temp 102 102.0 Pulse 92 94 Resp 20 B/P 152/78 148/68 148/71 Pulse Ox 93 92 94 93 O2 Delivery Nasal Cannula Nasal Cannula Nasal Cannula Nasal Cannula O2 Flow Rate 3 3.0 3 3 04/07/16 04/07/16 04/07/16 04/07/16 15:16 16:15 17:32 18:15 Pulse 83 81 Resp 20 B/P 170/72 131/62 128/64 Pulse Ox 94 93 93 92 O2 Delivery Nasal Cannula Nasal Cannula Nasal Cannula Nasal Cannula O2 Flow Rate 3 3 3 3.0 04/07/16 04/07/16 04/07/16 04/08/16 19:00 20:00 23:00 03:00 Temp 97.3 96.8 97.5 97.3 96.8 97.5 Pulse 90 96 91 Resp 20 B/P 122/62 129/77 121/75 Pulse Ox 90 91 93 O2 Delivery Venturi Mask Venturi Mask Venturi Mask Venturi Mask O2 Flow Rate 4.0 12.0 4.0 4.0 Intake and Output 04/07/16 04/07/16 04/08/16 15:00 23:00 07:00 Intake Total 1000 ml Balance 1000 ml ALESHA GARCIA MD Apr 08, 2016 07:48
--- NOTE | 2016-04-08 08:45 | PDOC ---
PULMONARY PROGRESS NOTES Subjective PT WITH NO INCREASE SOA Vitals Vital Signs Date Time Temp Pulse Resp B/P Pulse Ox O2 Delivery O2 Flow Rate FiO2 04/08/16 07:40 87 Venturi Mask 12.0 04/08/16 07:00 97.7 79 18 128/80 97.7 ROS: No Nausea, No Chest Pain, No Abdominal Pain, No Increase Cough General: Alert Lungs: Clear Cardiovascular: S1, S2 Abdomen: Soft Neuro Exam: Alert Extremities: No Edema Skin: Warm Labs Laboratory Tests Test 04/07/16 13:30 04/07/16 14:25 04/07/16 21:12 04/08/16 06:20 White Blood Count 11.3x10^3/uL (4.0-11.0) 15.3x10^3/uL (4.0-11.0) Red Blood Count 5.17x10^6/uL (3.50-5.40) 4.98x10^6/uL (3.50-5.40) Hemoglobin 13.5g/dL (12.0-15.5) 12.9g/dL (12.0-15.5) Hematocrit 41.4% (36.0-47.0) 39.5% (36.0-47.0) Mean Corpuscular Volume 80fL (79-100) 79fL (79-100) Mean Corpuscular Hemoglobin 26pg (25-35) 26pg (25-35) Mean Corpuscular Hemoglobin Concent 33g/dL (31-37) 33g/dL (31-37) Red Cell Distribution Width 19.3% (11.5-14.5) 19.2% (11.5-14.5) Platelet Count 250x10^3/uL (140-400) 234x10^3/uL (140-400) Neutrophils (%) (Auto) 88% (31-73) 87% (31-73) Lymphocytes (%) (Auto) 8% (24-48) 10% (24-48) Monocytes (%) (Auto) 4% (0-9) 3% (0-9) Eosinophils (%) (Auto) 0% (0-3) 0% (0-3) Basophils (%) (Auto) 0% (0-3) 0% (0-3) Neutrophils # (Auto) 10.0x10^3uL (1.8-7.7) 13.4x10^3uL (1.8-7.7) Lymphocytes # (Auto) 0.9x10^3/uL (1.0-4.8) 1.5x10^3/uL (1.0-4.8) Monocytes # (Auto) 0.4x10^3/uL (0.0-1.1) 0.4x10^3/uL (0.0-1.1) Eosinophils # (Auto) 0.0x10^3/uL (0.0-0.7) 0.0x10^3/uL (0.0-0.7) Basophils # (Auto) 0.0x10^3/uL (0.0-0.2) 0.0x10^3/uL (0.0-0.2) Segmented Neutrophils % 52% (35-66) Band Neutrophils % 29% (0-9) Lymphocytes % 13% (24-48) Monocytes % 5% (0-10) Basophils % 1% (0-3) Toxic Granulation Slight Platelet Estimate Adequate (ADEQUATE) Anisocytosis Slight Lactic Acid Level 1.2mmol/L (0.4-2.0) Sodium Level 137mmol/L (136-145) 143mmol/L (136-145) Potassium Level 3.4mmol/L (3.5-5.1) 3.8mmol/L (3.5-5.1) Chloride Level 97mmol/L (98-107) 103mmol/L (98-107) Carbon Dioxide Level 27mmol/L (21-32) 29mmol/L (21-32) Anion Gap 13 (6-14) 11 (6-14) Blood Urea Nitrogen 15mg/dL (7-20) 17mg/dL (7-20) Creatinine 1.0mg/dL (0.6-1.0) 0.9mg/dL (0.6-1.0) Estimated GFR (Cockcroft-Gault) 57.4 64.8 BUN/Creatinine Ratio 15 (6-20) Glucose Level 165mg/dL (70-99) 217mg/dL (70-99) Calcium Level 9.0mg/dL (8.5-10.1) 8.8mg/dL (8.5-10.1) Total Bilirubin 0.4mg/dL (0.2-1.0) Aspartate Amino Transf (AST/SGOT) 26U/L (15-37) Alanine Aminotransferase (ALT/SGPT) 37U/L (14-59) Alkaline Phosphatase 94U/L (46-116) Total Protein 7.7g/dL (6.4-8.2) Albumin 3.2g/dL (3.4-5.0) Albumin/Globulin Ratio 0.7 (1.0-1.7) Glucose (Fingerstick) 193mg/dL (70-99) Test 04/08/16 07:23 Glucose (Fingerstick) 208mg/dL (70-99) Laboratory Tests Test 04/07/16 13:30 04/07/16 14:25 04/07/16 21:12 04/08/16 06:20 White Blood Count 11.3x10^3/uL (4.0-11.0) 15.3x10^3/uL (4.0-11.0) Red Blood Count 5.17x10^6/uL (3.50-5.40) 4.98x10^6/uL (3.50-5.40) Hemoglobin 13.5g/dL (12.0-15.5) 12.9g/dL (12.0-15.5) Hematocrit 41.4% (36.0-47.0) 39.5% (36.0-47.0) Mean Corpuscular Volume 80fL (79-100) 79fL (79-100) Mean Corpuscular Hemoglobin 26pg (25-35) 26pg (25-35) Mean Corpuscular Hemoglobin Concent 33g/dL (31-37) 33g/dL (31-37) Red Cell Distribution Width 19.3% (11.5-14.5) 19.2% (11.5-14.5) Platelet Count 250x10^3/uL (140-400) 234x10^3/uL (140-400) Neutrophils (%) (Auto) 88% (31-73) 87% (31-73) Lymphocytes (%) (Auto) 8% (24-48) 10% (24-48) Monocytes (%) (Auto) 4% (0-9) 3% (0-9) Eosinophils (%) (Auto) 0% (0-3) 0% (0-3) Basophils (%) (Auto) 0% (0-3) 0% (0-3) Neutrophils # (Auto) 10.0x10^3uL (1.8-7.7) 13.4x10^3uL (1.8-7.7) Lymphocytes # (Auto) 0.9x10^3/uL (1.0-4.8) 1.5x10^3/uL (1.0-4.8) Monocytes # (Auto) 0.4x10^3/uL (0.0-1.1) 0.4x10^3/uL (0.0-1.1) Eosinophils # (Auto) 0.0x10^3/uL (0.0-0.7) 0.0x10^3/uL (0.0-0.7) Basophils # (Auto) 0.0x10^3/uL (0.0-0.2) 0.0x10^3/uL (0.0-0.2) Segmented Neutrophils % 52% (35-66) Band Neutrophils % 29% (0-9) Lymphocytes % 13% (24-48) Monocytes % 5% (0-10) Basophils % 1% (0-3) Toxic Granulation Slight Platelet Estimate Adequate (ADEQUATE) Anisocytosis Slight Lactic Acid Level 1.2mmol/L (0.4-2.0) Sodium Level 137mmol/L (136-145) 143mmol/L (136-145) Potassium Level 3.4mmol/L (3.5-5.1) 3.8mmol/L (3.5-5.1) Chloride Level 97mmol/L (98-107) 103mmol/L (98-107) Carbon Dioxide Level 27mmol/L (21-32) 29mmol/L (21-32) Anion Gap 13 (6-14) 11 (6-14) Blood Urea Nitrogen 15mg/dL (7-20) 17mg/dL (7-20) Creatinine 1.0mg/dL (0.6-1.0) 0.9mg/dL (0.6-1.0) Estimated GFR (Cockcroft-Gault) 57.4 64.8 BUN/Creatinine Ratio 15 (6-20) Glucose Level 165mg/dL (70-99) 217mg/dL (70-99) Calcium Level 9.0mg/dL (8.5-10.1) 8.8mg/dL (8.5-10.1) Total Bilirubin 0.4mg/dL (0.2-1.0) Aspartate Amino Transf (AST/SGOT) 26U/L (15-37) Alanine Aminotransferase (ALT/SGPT) 37U/L (14-59) Alkaline Phosphatase 94U/L (46-116) Total Protein 7.7g/dL (6.4-8.2) Albumin 3.2g/dL (3.4-5.0) Albumin/Globulin Ratio 0.7 (1.0-1.7) Glucose (Fingerstick) 193mg/dL (70-99) Test 04/08/16 07:23 Glucose (Fingerstick) 208mg/dL (70-99) Medications Active Scripts Medications Dose Route/Sig Days Date Category Metformin Hcl 500 Mg Tablet 1 Tab PO BID 02/08/16 Reported Proair Hfa Inhaler (Albuterol Sulfate) 8.5 Gm Hfa.aer.ad 1 Puff INH PRN Q6HRS PRN 02/08/16 Reported Hydrochlorothiazide Capsule (Hydrochlorothiazide) 12.5 Mg Capsule 1 Cap PO DAILY 02/08/16 Reported Atorvastatin Calcium 10 Mg Tablet 1 Tab PO DAILY 02/08/16 Reported Impression . 1. Acute respiratory failure, multifactorial. 2. Acute exacerbation of chronic obstructive pulmonary disease. 3. Pneumonia was suspect gram-positive, possibly gram negative. 4. Fever secondary to above. Plan . INCREASE 02 TO 50 % CONTINUE STEROIDS NEBS SPOKE WITH FAMILY AT BEDSIDE ESTRELLA HEATH MD Apr 08, 2016 08:45
[2016-04-08] MEDS: IV NORMAL SALINE 1000ML BAG 1,000 ML IV SCH (08:52)
[2016-04-08] MEDS: CETIRIZINE HCL 10 MG TABLET PO SCH (08:52)
[2016-04-08] MEDS: ESTRADIOL 1 MG TABLET PO SCH (08:52)
[2016-04-08] MEDS: OSELTAMIVIR 75 MG CAPSULE PO SCH ×2 (08:52→20:51)
[2016-04-08] MEDS: OXYCODONE/APAP 5/325 TABLET. PO PRN (08:53)
[2016-04-08] MEDS: DOXYCYCLINE HYCLATE 100 MG in IV DEXTROSE 5% 100 ML IV SCH ×2 (08:54→21:23)
[2016-04-08] MEDS: INSULIN ASPART 300 UNITS/3 ML INSULN.PEN SQ SCH ×3 (09:04→17:40)
[2016-04-08] MEDS: ENOXAPARIN 40 MG/0.4 ML DISP.SYRIN. SQ SCH ×2 (09:04→20:51)
--- NOTE | 2016-04-08 09:04 | HP ---
ADMIT DATE: 04/07/2016 CHIEF COMPLAINT: Shortness of air. 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 She saw Dr. Hawley in an office visit on the day of admission for the above complaint. The patient had been experiencing a several day history of increasing cough and shortness of air. She also noticed the onset of a fever. The patient had received her flu shot last fall. When Dr. Hawley saw her, she was febrile and significantly hypoxic. She was positive for Influenza A. She was sent to the Emergency Room. Evaluation there showed that she continued to be hypoxic. Her initial temperature was 102. Chest x-ray showed a possible infiltrate. Pulmonary Medicine was consulted and she was admitted for further treatment. PAST MEDICAL HISTORY: Diabetes mellitus type 2, hypertension, hyperlipidemia, GERD, allergic rhinitis and COPD/asthma. PAST SURGICAL HISTORY: Laparoscopic cholecystectomy and TAHBSO. ALLERGIES: The patient has no known drug allergies. HOME MEDICATIONS: Hydrochlorothiazide 12.5 mg daily, estradiol 1 mg daily, atorvastatin 10 mg daily, metformin XR 750 mg daily, Nexium 40 mg daily, Flonase and Nupur as needed and albuterol inhaler as needed. FAMILY HISTORY: Noncontributory. SOCIAL HISTORY: The patient is . She works in medical records in our office. She does continue to smoke cigarettes. She does not drink alcohol to excess. REVIEW OF SYSTEMS: The patient has had a fever as above. She denies chest pain or palpitations. She has not had abdominal pain, nausea or vomiting. She has not had dysuria, back pain or joint pain. PHYSICAL EXAMINATION: GENERAL: The patient is alert and oriented x 3, resting in bed, in no acute distress. HEENT: PERRL. Disconjugate gaze, which is chronic for her. Sclerae clear. NECK: Supple, without lymphadenopathy. CHEST: Breath sounds decreased throughout, scant expiratory wheezes are heard with fair breath sounds. CARDIOVASCULAR: Regular rhythm without murmur. ABDOMEN: Soft, nontender, normoactive bowel sounds are present. EXTREMITIES: Without edema. ASSESSMENT AND PLAN: 1. Acute hypoxic respiratory failure with influenza, pneumonia and acute exacerbation of chronic obstructive pulmonary disease. The patient's condition has mildly improved overnight. She is still requiring a significant amount of oxygen to maintain good oxygen saturation. She has been started on Tamiflu, Rocephin, doxycycline and Solu-Medrol per Dr. Mcintyre's recommendations. Patient states that she intends to quit smoking cigarettes. She denies needing a nicotine patch at this time. 2. Diabetes mellitus type 2. The patient's fingersticks are elevated due to the Solu-Medrol. We will continue her usual metformin and use sliding scale insulin as needed. 3. Hypertension. Continue home medication. 4. Allergic rhinitis. Continue meds daily. 5. Gastroesophageal reflux disease. Continue proton pump inhibitor. ALESHA GARCIA MD DR: DIYA/paresh JOB#: [id number] / [id number] LO
[2016-04-08 11:17] VITALS: BP 149/86
[2016-04-08 15:00] VITALS: BP 136/76
[2016-04-08] MEDS: METFORMIN XR 500 MG TAB.ER.24H PO SCH (17:33)
[2016-04-08 19:00] VITALS: BP 128/81
[2016-04-08] MEDS: CEFTRIAXONE SODIUM 1 GM in IV NORMAL SALINE 50ML 50 ML IV SCH (20:51)
[2016-04-08] MEDS: ATORVASTATIN CALCIUM 10 MG TABLET. PO SCH (20:54)
[2016-04-08] MEDS: HYDROCHLOROTHIAZIDE 12.5 MG CAPSULE. PO SCH (20:54)
[2016-04-08] MEDS ORDERED: ZOLPIDEM 5 MG TABLET. PO PRN (22:30)
[2016-04-08 23:00] VITALS: BP 141/85
[2016-04-09] MEDS: methylPREDNISolone SOD SUCC PF 125 MG/2 ML VIAL. IV SCH ×4 (06:00→17:11)
[2016-04-09 07:00] VITALS: BP 126/83
[2016-04-09] MEDS ORDERED: PANTOPRAZOLE 40 MG TABLET. PO PRN (07:30)
--- NOTE | 2016-04-09 07:50 | PDOC ---
PROGRESS NOTES Subjective Subjective Patient reports cough and ROCHA persist. Objective Objective Vital Signs Date Time Temp Pulse Resp B/P Pulse Ox O2 Delivery O2 Flow Rate FiO2 04/08/16 23:00 98.6 87 20 141/85 94 98.6 04/08/16 20:04 Venturi Mask 15.0 Intake and Output 04/09/16 06:59 Intake Total 360 ml Output Total 250 ml Balance 110 ml Intake Oral 360 ml Output Urine Total 250 ml # Voids 5 Physical Exam Abdomen: Normal bowel sounds, Soft, No tenderness Heart: Regular rate Extremities: No edema General: Alert, Oriented X3, No acute distress Lungs: Other (moderate expiratory wheezes and coarse BS throughout) Assessment Assessment Problems Medical Problems: (1) Hypoxia Status: Acute (2) Influenza Status: Acute (3) Influenza A Status: Acute (4) Pneumonia Status: Acute Plan Plan of Care 1. Acute respiratory failure with Influenza, pneumonia and AE COPD - still needing high O2 flow to maintain sats. Continue Solumedrol, abx, Tamiflu and nebs. Pulmonary following. 2. HTN - controlled, continue present meds. 3. DM2 - glucose elevated due to steroids, continue Metformin and SS insulin. Comment Review of Relevant I have reviewed the following items marily (where applicable) has been applied. Labs Laboratory Tests Test 04/07/16 13:30 04/07/16 14:25 04/07/16 21:12 04/08/16 06:20 White Blood Count 11.3x10^3/uL (4.0-11.0) 15.3x10^3/uL (4.0-11.0) Red Blood Count 5.17x10^6/uL (3.50-5.40) 4.98x10^6/uL (3.50-5.40) Hemoglobin 13.5g/dL (12.0-15.5) 12.9g/dL (12.0-15.5) Hematocrit 41.4% (36.0-47.0) 39.5% (36.0-47.0) Mean Corpuscular Volume 80fL (79-100) 79fL (79-100) Mean Corpuscular Hemoglobin 26pg (25-35) 26pg (25-35) Mean Corpuscular Hemoglobin Concent 33g/dL (31-37) 33g/dL (31-37) Red Cell Distribution Width 19.3% (11.5-14.5) 19.2% (11.5-14.5) Platelet Count 250x10^3/uL (140-400) 234x10^3/uL (140-400) Neutrophils (%) (Auto) 88% (31-73) 87% (31-73) Lymphocytes (%) (Auto) 8% (24-48) 10% (24-48) Monocytes (%) (Auto) 4% (0-9) 3% (0-9) Eosinophils (%) (Auto) 0% (0-3) 0% (0-3) Basophils (%) (Auto) 0% (0-3) 0% (0-3) Neutrophils # (Auto) 10.0x10^3uL (1.8-7.7) 13.4x10^3uL (1.8-7.7) Lymphocytes # (Auto) 0.9x10^3/uL (1.0-4.8) 1.5x10^3/uL (1.0-4.8) Monocytes # (Auto) 0.4x10^3/uL (0.0-1.1) 0.4x10^3/uL (0.0-1.1) Eosinophils # (Auto) 0.0x10^3/uL (0.0-0.7) 0.0x10^3/uL (0.0-0.7) Basophils # (Auto) 0.0x10^3/uL (0.0-0.2) 0.0x10^3/uL (0.0-0.2) Segmented Neutrophils % 52% (35-66) Band Neutrophils % 29% (0-9) Lymphocytes % 13% (24-48) Monocytes % 5% (0-10) Basophils % 1% (0-3) Toxic Granulation Slight Platelet Estimate Adequate (ADEQUATE) Anisocytosis Slight Lactic Acid Level 1.2mmol/L (0.4-2.0) Sodium Level 137mmol/L (136-145) 143mmol/L (136-145) Potassium Level 3.4mmol/L (3.5-5.1) 3.8mmol/L (3.5-5.1) Chloride Level 97mmol/L (98-107) 103mmol/L (98-107) Carbon Dioxide Level 27mmol/L (21-32) 29mmol/L (21-32) Anion Gap 13 (6-14) 11 (6-14) Blood Urea Nitrogen 15mg/dL (7-20) 17mg/dL (7-20) Creatinine 1.0mg/dL (0.6-1.0) 0.9mg/dL (0.6-1.0) Estimated GFR (Cockcroft-Gault) 57.4 64.8 BUN/Creatinine Ratio 15 (6-20) Glucose Level 165mg/dL (70-99) 217mg/dL (70-99) Calcium Level 9.0mg/dL (8.5-10.1) 8.8mg/dL (8.5-10.1) Total Bilirubin 0.4mg/dL (0.2-1.0) Aspartate Amino Transf (AST/SGOT) 26U/L (15-37) Alanine Aminotransferase (ALT/SGPT) 37U/L (14-59) Alkaline Phosphatase 94U/L (46-116) Total Protein 7.7g/dL (6.4-8.2) Albumin 3.2g/dL (3.4-5.0) Albumin/Globulin Ratio 0.7 (1.0-1.7) Glucose (Fingerstick) 193mg/dL (70-99) Test 04/08/16 07:23 04/08/16 11:09 04/08/16 16:51 04/08/16 21:23 Glucose (Fingerstick) 208mg/dL (70-99) 281mg/dL (70-99) 261mg/dL (70-99) 199mg/dL (70-99) Laboratory Tests Test 04/08/16 11:09 04/08/16 16:51 04/08/16 21:23 Glucose (Fingerstick) 281mg/dL (70-99) 261mg/dL (70-99) 199mg/dL (70-99) Microbiology 04/07/16 Blood Culture - Preliminary, Resulted NO GROWTH AFTER 1 DAY Medications Current Medications Sodium Chloride (Iv Sodium Chloride 0.9% 1000ml Bag) 1,000 ml @ 1,000 mls/hr Q1H IV Last administered on 04/07/16 13:37; Start 04/07/16 at 13:30; Stop at 14:29; Status DC Albuterol/ Ipratropium (Duoneb) 3 ml 1X ONCE NEB Last administered on 13:45; Start 04/07/16 at 13:30; Stop 04/07/16 at 13:31; Status DC Methylprednisolone Sodium Succinate (Solu-Medrol 125mg Vial) 125 mg 1X ONCE IV Last administered on 04/07/16 13:37; Start 04/07/16 at 13:30; Stop 04/07/16 at 13:31; Status DC Acetaminophen (Tylenol) 650 mg 1X ONCE PO Last administered on 04/07/16 14:48 ; Start 04/07/16 at 14:30; Stop 04/07/16 at 14:31; Status DC Ondansetron HCl (Zofran) 4 mg PRN Q8HRS PRN IV NAUSEA/VOMITING; Start 04/07/16 at 15:15; Stop 04/08/16 at 15:14; Status DC Fentanyl Citrate 50 mcg 50 mcg PRN Q2HR PRN IV PAIN; Start 04/07/16 at 15:15; Stop 04/08/16 at 15:14; Status DC Sodium Chloride (Iv Sodium Chloride 0.9% 1000ml Bag) 1,000 ml @ 125 mls/hr Q8H IV Last administered on 04/08/16 08:52; Start 04/07/16 at 15:11; Stop at 15:10; Status DC Acetaminophen (Tylenol) 650 mg PRN Q4HRS PRN PO FEVER Last administered on 04/08 01:35; Start 04/07/16 at 15:15; Stop 04/08/16 at 15:14; Status DC Albuterol/ Ipratropium (Duoneb) 3 ml RTQID NEB Last administered on 04/08/16 15:19; Start 04/07/16 at 16:00; Stop 04/08/16 at 15:59; Status DC Oseltamivir Phosphate (Tamiflu) 75 mg BID PO Last administered on 04/08/16 20: 51; Start 04/07/16 at 15:15; Stop 04/12/16 at 15:14 Methylprednisolone Sodium Succinate 60 mg 60 mg Q6HRS IV Last administered on 06:00; Start 04/07/16 at 18:00 Ceftriaxone Sodium 1 gm/ Sodium Chloride 50 ml @ 100 mls/hr Q24H IV Last administered on 04/08/16 20:51; Start 04/07/16 at 20:00 Doxycycline Hyclate/Dextrose 100 ml @ 50 mls/hr Q12HR IV Last administered on 04/08/16 21:23; Start 04/07/16 at 21:00 Albuterol Sulfate (Ventolin Neb Soln) 2.5 mg PRN Q2HR PRN NEB DYSPNEA; Start at 20:00 Enoxaparin Sodium (Lovenox 40mg Syringe) 40 mg Q12HR SQ Last administered on 20:51; Start 04/07/16 at 21:00 Insulin Aspart (Novolog) 0-7 UNITS TIDWMEALS SQ Last administered on 04/08/16 17:40; Start 04/08/16 at 08:00 Dextrose 12.5 gm PRN Q15MIN PRN IV SEE COMMENTS; Start 04/08/16 at 07:45 Atorvastatin Calcium (Lipitor) 10 mg HS PO Last administered on 04/08/16 20:54 ; Start 04/08/16 at 21:00 Estradiol (Estrace) 1 mg DAILY PO Last administered on 04/08/16 08:52; Start 04/08/16 at 09:00 Hydrochlorothiazide (Microzide) 12.5 mg HS PO Last administered on 04/08/16 20 :54; Start 04/08/16 at 21:00 Pantoprazole Sodium (Protonix) 40 mg PRN DAILY PRN PO DYSPEPSIA; Start at 07:30 Cetirizine HCl (Zyrtec) 10 mg DAILY PO Last administered on 04/08/16 08:52; Start 04/08/16 at 09:00 Metformin HCl (Glucophage Xr) 750 mg DAILY16 PO Last administered on 04/08/16 17:33; Start 04/08/16 at 16:00 Oxycodone/ Acetaminophen (Percocet 5/325) 1 tab PRN Q6HRS PRN PO PAIN Last administered on 04/08/16 08:53; Start 04/08/16 at 07:45 Albuterol/ Ipratropium (Duoneb) 3 ml RTQID NEB Last administered on 04/08/16 20:04; Start 04/08/16 at 20:00 Zolpidem Tartrate (Ambien) 5 mg PRN QHS PRN PO INSOMNIA; Start 04/08/16 at 22: 30 Active Scripts Active Reported Estradiol 1 Mg Tablet 1 Tab PO DAILY Nexium Capsule (Esomeprazole Magnesium) 40 Mg Capsule.dr 1 Cap PO PRN DAILY PRN Nupur Allergy (Fexofenadine Hcl) 180 Mg Tablet 1 Tab PO DAILY Metformin Hcl Er (Metformin Hcl) 750 Mg Tab.er.24h 1 Tab PO HS Proair Hfa Inhaler (Albuterol Sulfate) 8.5 Gm Hfa.aer.ad 1 Puff INH PRN Q6HRS PRN Hydrochlorothiazide Capsule (Hydrochlorothiazide) 12.5 Mg Capsule 1 Cap PO HS Atorvastatin Calcium 10 Mg Tablet 1 Tab PO HS Vitals/I & O Vital Sign - Last 24 Hours 04/08/16 04/08/16 04/08/16 04/08/16 08:05 08:53 10:00 11:17 Temp 97.4 97.4 Pulse 84 Resp 20 B/P 149/86 Pulse Ox 87 O2 Delivery Venturi Mask Venturi Mask Venturi Mask Venturi Mask O2 Flow Rate 15.0 15.0 15.0 15.0 04/08/16 04/08/16 04/08/16 04/08/16 11:20 15:00 15:20 19:00 Temp 97.4 99.3 97.4 99.3 Pulse 85 81 Resp 20 22 B/P 136/76 128/81 Pulse Ox 87 90 90 92 O2 Delivery Venturi Mask Nasal Cannula Venturi Mask O2 Flow Rate 12.0 15.0 15.0 04/08/16 04/08/16 04/08/16 20:00 20:04 23:00 Temp 98.6 98.6 Pulse 87 Resp 20 B/P 141/85 Pulse Ox 90 94 O2 Delivery Venturi Mask Venturi Mask O2 Flow Rate 15.0 15.0 Intake and Output 04/08/16 04/08/16 04/09/16 14:59 22:59 06:59 Intake Total 360 ml Output Total 250 ml Balance 360 ml -250 ml ALESHA GARCIA MD Apr 09, 2016 07:50
[2016-04-09] MEDS: IPRATRPIUM/ALBUTEROL 0.5/2.5MG 3 ML NEBU. NEB SCH ×4 (08:16→20:08)
[2016-04-09] MEDS: ESTRADIOL 1 MG TABLET PO SCH (08:43)
[2016-04-09] MEDS: CETIRIZINE HCL 10 MG TABLET PO SCH (08:43)
[2016-04-09] MEDS: OSELTAMIVIR 75 MG CAPSULE PO SCH ×2 (08:43→20:41)
[2016-04-09] MEDS: OXYCODONE/APAP 5/325 TABLET. PO PRN (08:43)
[2016-04-09] MEDS: ENOXAPARIN 40 MG/0.4 ML DISP.SYRIN. SQ SCH ×2 (08:44→20:41)
[2016-04-09] MEDS: DOXYCYCLINE HYCLATE 100 MG in IV DEXTROSE 5% 100 ML IV SCH ×2 (08:44→22:48)
[2016-04-09] MEDS: INSULIN ASPART 300 UNITS/3 ML INSULN.PEN SQ SCH ×3 (09:08→17:18)
[2016-04-09 11:00] VITALS: BP 134/74
--- NOTE | 2016-04-09 11:53 | PDOC ---
PULMONARY PROGRESS NOTES Subjective PT WITH NO INCREASE SOA Vitals Vital Signs Date Time Temp Pulse Resp B/P Pulse Ox O2 Delivery O2 Flow Rate FiO2 04/09/16 11:50 95 Venturi Mask 15.0 04/09/16 07:00 98.1 88 22 126/83 98.1 ROS: No Nausea, No Chest Pain, No Abdominal Pain, No Increase Cough General: Alert Lungs: Clear Cardiovascular: S1, S2 Abdomen: Soft Neuro Exam: Alert Extremities: No Edema Skin: Warm Labs Laboratory Tests Test 04/07/16 13:30 04/07/16 14:25 04/07/16 21:12 04/08/16 06:20 White Blood Count 11.3x10^3/uL (4.0-11.0) 15.3x10^3/uL (4.0-11.0) Red Blood Count 5.17x10^6/uL (3.50-5.40) 4.98x10^6/uL (3.50-5.40) Hemoglobin 13.5g/dL (12.0-15.5) 12.9g/dL (12.0-15.5) Hematocrit 41.4% (36.0-47.0) 39.5% (36.0-47.0) Mean Corpuscular Volume 80fL (79-100) 79fL (79-100) Mean Corpuscular Hemoglobin 26pg (25-35) 26pg (25-35) Mean Corpuscular Hemoglobin Concent 33g/dL (31-37) 33g/dL (31-37) Red Cell Distribution Width 19.3% (11.5-14.5) 19.2% (11.5-14.5) Platelet Count 250x10^3/uL (140-400) 234x10^3/uL (140-400) Neutrophils (%) (Auto) 88% (31-73) 87% (31-73) Lymphocytes (%) (Auto) 8% (24-48) 10% (24-48) Monocytes (%) (Auto) 4% (0-9) 3% (0-9) Eosinophils (%) (Auto) 0% (0-3) 0% (0-3) Basophils (%) (Auto) 0% (0-3) 0% (0-3) Neutrophils # (Auto) 10.0x10^3uL (1.8-7.7) 13.4x10^3uL (1.8-7.7) Lymphocytes # (Auto) 0.9x10^3/uL (1.0-4.8) 1.5x10^3/uL (1.0-4.8) Monocytes # (Auto) 0.4x10^3/uL (0.0-1.1) 0.4x10^3/uL (0.0-1.1) Eosinophils # (Auto) 0.0x10^3/uL (0.0-0.7) 0.0x10^3/uL (0.0-0.7) Basophils # (Auto) 0.0x10^3/uL (0.0-0.2) 0.0x10^3/uL (0.0-0.2) Segmented Neutrophils % 52% (35-66) Band Neutrophils % 29% (0-9) Lymphocytes % 13% (24-48) Monocytes % 5% (0-10) Basophils % 1% (0-3) Toxic Granulation Slight Platelet Estimate Adequate (ADEQUATE) Anisocytosis Slight Lactic Acid Level 1.2mmol/L (0.4-2.0) Sodium Level 137mmol/L (136-145) 143mmol/L (136-145) Potassium Level 3.4mmol/L (3.5-5.1) 3.8mmol/L (3.5-5.1) Chloride Level 97mmol/L (98-107) 103mmol/L (98-107) Carbon Dioxide Level 27mmol/L (21-32) 29mmol/L (21-32) Anion Gap 13 (6-14) 11 (6-14) Blood Urea Nitrogen 15mg/dL (7-20) 17mg/dL (7-20) Creatinine 1.0mg/dL (0.6-1.0) 0.9mg/dL (0.6-1.0) Estimated GFR (Cockcroft-Gault) 57.4 64.8 BUN/Creatinine Ratio 15 (6-20) Glucose Level 165mg/dL (70-99) 217mg/dL (70-99) Calcium Level 9.0mg/dL (8.5-10.1) 8.8mg/dL (8.5-10.1) Total Bilirubin 0.4mg/dL (0.2-1.0) Aspartate Amino Transf (AST/SGOT) 26U/L (15-37) Alanine Aminotransferase (ALT/SGPT) 37U/L (14-59) Alkaline Phosphatase 94U/L (46-116) Total Protein 7.7g/dL (6.4-8.2) Albumin 3.2g/dL (3.4-5.0) Albumin/Globulin Ratio 0.7 (1.0-1.7) Glucose (Fingerstick) 193mg/dL (70-99) Test 04/08/16 07:23 04/08/16 11:09 04/08/16 16:51 04/08/16 21:23 Glucose (Fingerstick) 208mg/dL (70-99) 281mg/dL (70-99) 261mg/dL (70-99) 199mg/dL (70-99) Test 04/09/16 07:31 04/09/16 11:31 Glucose (Fingerstick) 176mg/dL (70-99) 228mg/dL (70-99) Laboratory Tests Test 04/08/16 16:51 04/08/16 21:23 04/09/16 07:31 04/09/16 11:31 Glucose (Fingerstick) 261mg/dL (70-99) 199mg/dL (70-99) 176mg/dL (70-99) 228mg/dL (70-99) Medications Active Scripts Medications Dose Route/Sig Days Date Category Metformin Hcl 500 Mg Tablet 1 Tab PO BID 02/08/16 Reported Proair Hfa Inhaler (Albuterol Sulfate) 8.5 Gm Hfa.aer.ad 1 Puff INH PRN Q6HRS PRN 02/08/16 Reported Hydrochlorothiazide Capsule (Hydrochlorothiazide) 12.5 Mg Capsule 1 Cap PO DAILY 02/08/16 Reported Atorvastatin Calcium 10 Mg Tablet 1 Tab PO DAILY 02/08/16 Reported Impression . 1. Acute respiratory failure, multifactorial. 2. Acute exacerbation of chronic obstructive pulmonary disease. 3. Pneumonia was suspect gram-positive, possibly gram negative. 4. Fever secondary to above. Plan . STILL REQUIRING HIGH 02 CONTINUE STEROIDS NEBS 6 MIN WALK PRIOR TO D/C HOPEFULLY ESTRELLA VARGAS MD Apr 09, 2016 11:53
[2016-04-09 15:00] VITALS: BP 128/79
[2016-04-09] MEDS: METFORMIN XR 500 MG TAB.ER.24H PO SCH (17:11)
[2016-04-09 19:00] VITALS: BP 148/60
[2016-04-09] MEDS: CEFTRIAXONE SODIUM 1 GM in IV NORMAL SALINE 50ML 50 ML IV SCH (20:40)
[2016-04-09] MEDS: ATORVASTATIN CALCIUM 10 MG TABLET. PO SCH (20:41)
[2016-04-09] MEDS: HYDROCHLOROTHIAZIDE 12.5 MG CAPSULE. PO SCH (20:41)
[2016-04-09 22:40] VITALS: BP 144/68
[2016-04-10] MEDS: methylPREDNISolone SOD SUCC PF 125 MG/2 ML VIAL. IV SCH ×4 (01:03→18:00)
[2016-04-10 07:00] VITALS: BP 156/89
[2016-04-10] MEDS: IPRATRPIUM/ALBUTEROL 0.5/2.5MG 3 ML NEBU. NEB SCH ×4 (08:01→20:52)
[2016-04-10] MEDS: ESTRADIOL 1 MG TABLET PO SCH (08:57)
[2016-04-10] MEDS: CETIRIZINE HCL 10 MG TABLET PO SCH (08:58)
[2016-04-10] MEDS: OSELTAMIVIR 75 MG CAPSULE PO SCH ×2 (08:58→20:22)
[2016-04-10] MEDS: ENOXAPARIN 40 MG/0.4 ML DISP.SYRIN. SQ SCH ×2 (08:59→20:26)
[2016-04-10] MEDS: DOXYCYCLINE HYCLATE 100 MG in IV DEXTROSE 5% 100 ML IV SCH ×2 (09:02→22:07)
--- NOTE | 2016-04-10 09:09 | PDOC ---
PROGRESS NOTES Subjective Subjective Patient reports ROCHA is a little better. Having rib pain from coughing. Objective Objective Vital Signs Date Time Temp Pulse Resp B/P Pulse Ox O2 Delivery O2 Flow Rate FiO2 04/10/16 08:02 90 Venturi Mask 04/10/16 07:00 98.5 79 18 156/89 15.0 98.5 Intake and Output 04/10/16 07:00 Intake Total 2200 ml Output Total 1200 ml Balance 1000 ml Intake Oral 2200 ml Output Urine Total 1200 ml # Voids 6 Physical Exam Abdomen: Normal bowel sounds, Soft, No tenderness Heart: Regular rate Extremities: No edema General: Alert, Oriented X3, No acute distress Lungs: Other (Mild expiratory wheezes, BS decreased throughout but otherwise CTA) Assessment Assessment Problems Medical Problems: (1) Hypoxia Status: Acute (2) Influenza Status: Acute (3) Influenza A Status: Acute (4) Pneumonia Status: Acute Plan Plan of Care 1. Acute respiratory failure with influenza, pneumonia and AE COPD - exam much improved today, still requiring high O2 flow to maintain sats. Continue steroids , abx, Tamiflu, nebs and O2, Pulmonary following. 2. HTN - controlled with home meds. 3. DM2 - glucose mildly elevated, continue Metformin and SS insulin. Comment Review of Relevant I have reviewed the following items marily (where applicable) has been applied. Labs Laboratory Tests Test 04/08/16 11:09 04/08/16 16:51 04/08/16 21:23 04/09/16 07:31 Glucose (Fingerstick) 281mg/dL (70-99) 261mg/dL (70-99) 199mg/dL (70-99) 176mg/dL (70-99) Test 04/09/16 11:31 04/09/16 17:01 04/09/16 20:25 04/10/16 07:10 Glucose (Fingerstick) 228mg/dL (70-99) 245mg/dL (70-99) 238mg/dL (70-99) 203mg/dL (70-99) Laboratory Tests Test 04/09/16 11:31 04/09/16 17:01 04/09/16 20:25 04/10/16 07:10 Glucose (Fingerstick) 228mg/dL (70-99) 245mg/dL (70-99) 238mg/dL (70-99) 203mg/dL (70-99) Microbiology 04/07/16 Blood Culture - Preliminary, Resulted NO GROWTH AFTER 2 DAYS Medications Current Medications Sodium Chloride (Iv Sodium Chloride 0.9% 1000ml Bag) 1,000 ml @ 1,000 mls/hr Q1H IV Last administered on 04/07/16 13:37; Start 04/07/16 at 13:30; Stop at 14:29; Status DC Albuterol/ Ipratropium (Duoneb) 3 ml 1X ONCE NEB Last administered on 13:45; Start 04/07/16 at 13:30; Stop 04/07/16 at 13:31; Status DC Methylprednisolone Sodium Succinate (Solu-Medrol 125mg Vial) 125 mg 1X ONCE IV Last administered on 04/07/16 13:37; Start 04/07/16 at 13:30; Stop 04/07/16 at 13:31; Status DC Acetaminophen (Tylenol) 650 mg 1X ONCE PO Last administered on 04/07/16 14:48 ; Start 04/07/16 at 14:30; Stop 04/07/16 at 14:31; Status DC Ondansetron HCl (Zofran) 4 mg PRN Q8HRS PRN IV NAUSEA/VOMITING; Start 04/07/16 at 15:15; Stop 04/08/16 at 15:14; Status DC Fentanyl Citrate 50 mcg 50 mcg PRN Q2HR PRN IV PAIN; Start 04/07/16 at 15:15; Stop 04/08/16 at 15:14; Status DC Sodium Chloride (Iv Sodium Chloride 0.9% 1000ml Bag) 1,000 ml @ 125 mls/hr Q8H IV Last administered on 04/08/16 08:52; Start 04/07/16 at 15:11; Stop at 15:10; Status DC Acetaminophen (Tylenol) 650 mg PRN Q4HRS PRN PO FEVER Last administered on 04/08 01:35; Start 04/07/16 at 15:15; Stop 04/08/16 at 15:14; Status DC Albuterol/ Ipratropium (Duoneb) 3 ml RTQID NEB Last administered on 04/08/16 15:19; Start 04/07/16 at 16:00; Stop 04/08/16 at 15:59; Status DC Oseltamivir Phosphate (Tamiflu) 75 mg BID PO Last administered on 04/09/16 20: 41; Start 04/07/16 at 15:15; Stop 04/12/16 at 15:14 Methylprednisolone Sodium Succinate 60 mg 60 mg Q6HRS IV Last administered on 06:10; Start 04/07/16 at 18:00 Ceftriaxone Sodium 1 gm/ Sodium Chloride 50 ml @ 100 mls/hr Q24H IV Last administered on 04/09/16 20:40; Start 04/07/16 at 20:00 Doxycycline Hyclate/Dextrose 100 ml @ 50 mls/hr Q12HR IV Last administered on 04/09/16 22:48; Start 04/07/16 at 21:00 Albuterol Sulfate (Ventolin Neb Soln) 2.5 mg PRN Q2HR PRN NEB DYSPNEA; Start at 20:00 Enoxaparin Sodium (Lovenox 40mg Syringe) 40 mg Q12HR SQ Last administered on 20:41; Start 04/07/16 at 21:00 Insulin Aspart (Novolog) 0-7 UNITS TIDWMEALS SQ Last administered on 04/09/16 17:18; Start 04/08/16 at 08:00 Dextrose 12.5 gm PRN Q15MIN PRN IV SEE COMMENTS; Start 04/08/16 at 07:45 Atorvastatin Calcium (Lipitor) 10 mg HS PO Last administered on 04/09/16 20:41 ; Start 04/08/16 at 21:00 Estradiol (Estrace) 1 mg DAILY PO Last administered on 04/09/16 08:43; Start 04/08/16 at 09:00 Hydrochlorothiazide (Microzide) 12.5 mg HS PO Last administered on 04/09/16 20 :41; Start 04/08/16 at 21:00 Pantoprazole Sodium (Protonix) 40 mg PRN DAILY PRN PO DYSPEPSIA; Start at 07:30 Cetirizine HCl (Zyrtec) 10 mg DAILY PO Last administered on 04/09/16 08:43; Start 04/08/16 at 09:00 Metformin HCl (Glucophage Xr) 750 mg DAILY16 PO Last administered on 04/09/16 17:11; Start 04/08/16 at 16:00 Oxycodone/ Acetaminophen (Percocet 5/325) 1 tab PRN Q6HRS PRN PO PAIN Last administered on 04/09/16 08:43; Start 04/08/16 at 07:45 Albuterol/ Ipratropium (Duoneb) 3 ml RTQID NEB Last administered on 04/10/16 08:01; Start 04/08/16 at 20:00 Zolpidem Tartrate (Ambien) 5 mg PRN QHS PRN PO INSOMNIA; Start 04/08/16 at 22: 30 Active Scripts Active Reported Estradiol 1 Mg Tablet 1 Tab PO DAILY Nexium Capsule (Esomeprazole Magnesium) 40 Mg Capsule.dr 1 Cap PO PRN DAILY PRN Nupur Allergy (Fexofenadine Hcl) 180 Mg Tablet 1 Tab PO DAILY Metformin Hcl Er (Metformin Hcl) 750 Mg Tab.er.24h 1 Tab PO HS Proair Hfa Inhaler (Albuterol Sulfate) 8.5 Gm Hfa.aer.ad 1 Puff INH PRN Q6HRS PRN Hydrochlorothiazide Capsule (Hydrochlorothiazide) 12.5 Mg Capsule 1 Cap PO HS Atorvastatin Calcium 10 Mg Tablet 1 Tab PO HS Vitals/I & O Vital Sign - Last 24 Hours 04/09/16 04/09/16 04/09/16 04/09/16 10:00 11:00 11:50 15:00 Temp 98.4 98.9 98.4 98.9 Pulse 77 89 Resp 20 24 B/P 134/74 128/79 Pulse Ox 95 95 98 O2 Delivery Venturi Mask Room Air Venturi Mask Room Air O2 Flow Rate 15.0 3.0 15.0 3.0 04/09/16 04/09/16 04/09/16 04/09/16 15:42 19:00 20:00 20:11 Temp 98.7 98.7 Pulse 84 Resp 22 B/P 148/60 Pulse Ox 95 92 87 O2 Delivery Venturi Mask Nasal Cannula Venturi Mask Nasal Cannula O2 Flow Rate 15.0 3.0 15.0 4.0 04/09/16 04/10/16 04/10/16 22:40 07:00 08:02 Temp 98.9 98.5 98.9 98.5 Pulse 79 79 Resp 20 18 B/P 144/68 156/89 Pulse Ox 91 92 90 O2 Delivery Venturi Mask NonRebreather Mask Venturi Mask O2 Flow Rate 15.0 15.0 Intake and Output 04/09/16 04/09/16 04/10/16 15:00 23:00 07:00 Intake Total 480 ml 1220 ml 500 ml Output Total 1200 ml Balance 480 ml 20 ml 500 ml ALESHA GARCIA MD Apr 10, 2016 09:09
[2016-04-10] MEDS: INSULIN ASPART 300 UNITS/3 ML INSULN.PEN SQ SCH ×3 (09:12→17:21)
--- NOTE | 2016-04-10 09:44 | PDOC ---
PULMONARY PROGRESS NOTES Subjective PT WITH NO INCREASE SOA Vitals Vital Signs Date Time Temp Pulse Resp B/P Pulse Ox O2 Delivery O2 Flow Rate FiO2 04/10/16 08:02 90 Venturi Mask 04/10/16 07:00 98.5 79 18 156/89 15.0 98.5 ROS: No Nausea, No Chest Pain, No Abdominal Pain, No Increase Cough General: Alert Lungs: Clear Cardiovascular: S1, S2 Abdomen: Soft Neuro Exam: Alert Extremities: No Edema Skin: Warm Labs Laboratory Tests Test 04/08/16 11:09 04/08/16 16:51 04/08/16 21:23 04/09/16 07:31 Glucose (Fingerstick) 281mg/dL (70-99) 261mg/dL (70-99) 199mg/dL (70-99) 176mg/dL (70-99) Test 04/09/16 11:31 04/09/16 17:01 04/09/16 20:25 04/10/16 07:10 Glucose (Fingerstick) 228mg/dL (70-99) 245mg/dL (70-99) 238mg/dL (70-99) 203mg/dL (70-99) Laboratory Tests Test 04/09/16 11:31 04/09/16 17:01 04/09/16 20:25 04/10/16 07:10 Glucose (Fingerstick) 228mg/dL (70-99) 245mg/dL (70-99) 238mg/dL (70-99) 203mg/dL (70-99) Medications Active Scripts Medications Dose Route/Sig Days Date Category Metformin Hcl 500 Mg Tablet 1 Tab PO BID 02/08/16 Reported Proair Hfa Inhaler (Albuterol Sulfate) 8.5 Gm Hfa.aer.ad 1 Puff INH PRN Q6HRS PRN 02/08/16 Reported Hydrochlorothiazide Capsule (Hydrochlorothiazide) 12.5 Mg Capsule 1 Cap PO DAILY 02/08/16 Reported Atorvastatin Calcium 10 Mg Tablet 1 Tab PO DAILY 02/08/16 Reported Impression . 1. Acute respiratory failure, multifactorial. 2. Acute exacerbation of chronic obstructive pulmonary disease. 3. Pneumonia was suspect gram-positive, possibly gram negative. 4. Fever secondary to above. Plan . STILL REQUIRING HIGH 02 CONTINUE STEROIDS NEBS 6 MIN WALK PRIOR TO D/C HOPEFULLY ESTRELLA VARGAS MD Apr 10, 2016 09:44
[2016-04-10 11:01] VITALS: BP 121/78
[2016-04-10 14:44] VITALS: BP 138/68
[2016-04-10] MEDS: OXYCODONE/APAP 5/325 TABLET. PO PRN (15:28)
[2016-04-10] MEDS: METFORMIN XR 500 MG TAB.ER.24H PO SCH (17:13)
[2016-04-10 19:00] VITALS: BP 161/85
[2016-04-10] MEDS: ATORVASTATIN CALCIUM 10 MG TABLET. PO SCH (20:22)
[2016-04-10] MEDS: HYDROCHLOROTHIAZIDE 12.5 MG CAPSULE. PO SCH (20:22)
[2016-04-10] MEDS: CEFTRIAXONE SODIUM 1 GM in IV NORMAL SALINE 50ML 50 ML IV SCH (20:22)
[2016-04-10 23:00] VITALS: BP 139/79
[2016-04-11] MEDS: methylPREDNISolone SOD SUCC PF 125 MG/2 ML VIAL. IV SCH ×4 (00:31→17:01)
[2016-04-11 07:00] VITALS: BP 157/80
[2016-04-11] MEDS: IPRATRPIUM/ALBUTEROL 0.5/2.5MG 3 ML NEBU. NEB SCH ×4 (07:04→20:20)
[2016-04-11] MEDS: CETIRIZINE HCL 10 MG TABLET PO SCH (08:14)
[2016-04-11] MEDS: OSELTAMIVIR 75 MG CAPSULE PO SCH ×2 (08:14→21:04)
[2016-04-11] MEDS: ESTRADIOL 1 MG TABLET PO SCH (08:14)
[2016-04-11] MEDS: DOXYCYCLINE HYCLATE 100 MG in IV DEXTROSE 5% 100 ML IV SCH ×2 (08:14→22:37)
[2016-04-11] MEDS: ENOXAPARIN 40 MG/0.4 ML DISP.SYRIN. SQ SCH ×2 (08:15→21:07)
[2016-04-11] MEDS: INSULIN ASPART 300 UNITS/3 ML INSULN.PEN SQ SCH ×3 (08:23→17:07)
--- NOTE | 2016-04-11 09:19 | PDOC ---
PROGRESS NOTES Subjective Subjective Patient reports breathing is more comfortable at rest. Still gets SOA with exertion. Objective Objective Vital Signs Date Time Temp Pulse Resp B/P Pulse Ox O2 Delivery O2 Flow Rate FiO2 04/11/16 07:06 94 Venturi Mask 15.0 04/11/16 07:00 98.1 85 20 157/80 98.1 Intake and Output 04/11/16 07:00 Intake Total 2080 ml Balance 2080 ml Intake Oral 1930 ml IV Total 150 ml # Voids 7 # Bowel Movements 1 Physical Exam Abdomen: Normal bowel sounds, Soft, No tenderness Heart: Regular rate Extremities: No edema General: Alert, Oriented X3, No acute distress Lungs: Other (mild expiratory wheezes present, fair air flow throughout) Assessment Assessment Problems Medical Problems: (1) Hypoxia Status: Acute (2) Influenza Status: Acute (3) Influenza A Status: Acute (4) Pneumonia Status: Acute Plan Plan of Care 1. Acute respiratory failure with influenza, pneumonia and AE COPD - continues to make slow progress. Still needs high flow of O2 to maintain sats. Continue present tx with O2, nebs, Solumedrol, Tamiflu and abx. Pulmonary following. 2. DM2 - glucose mildly elevated, continue home meds and SS insulin as needed. 3. HTN - controlled, continue home meds. Comment Review of Relevant I have reviewed the following items marily (where applicable) has been applied. Labs Laboratory Tests Test 04/09/16 11:31 04/09/16 17:01 04/09/16 20:25 04/10/16 07:10 Glucose (Fingerstick) 228mg/dL (70-99) 245mg/dL (70-99) 238mg/dL (70-99) 203mg/dL (70-99) Test 04/10/16 11:14 04/10/16 16:37 04/10/16 20:28 Glucose (Fingerstick) 244mg/dL (70-99) 278mg/dL (70-99) 241mg/dL (70-99) Laboratory Tests Test 04/10/16 11:14 04/10/16 16:37 04/10/16 20:28 Glucose (Fingerstick) 244mg/dL (70-99) 278mg/dL (70-99) 241mg/dL (70-99) Microbiology 2/13/17 Blood Culture - Preliminary, Resulted NO GROWTH AFTER 3 DAYS Medications Current Medications Sodium Chloride (Iv Sodium Chloride 0.9% 1000ml Bag) 1,000 ml @ 1,000 mls/hr Q1H IV Last administered on 04/07/16 13:37; Start 04/07/16 at 13:30; Stop at 14:29; Status DC Albuterol/ Ipratropium (Duoneb) 3 ml 1X ONCE NEB Last administered on 13:45; Start 04/07/16 at 13:30; Stop 04/07/16 at 13:31; Status DC Methylprednisolone Sodium Succinate (Solu-Medrol 125mg Vial) 125 mg 1X ONCE IV Last administered on 04/07/16 13:37; Start 04/07/16 at 13:30; Stop 04/07/16 at 13:31; Status DC Acetaminophen (Tylenol) 650 mg 1X ONCE PO Last administered on 04/07/16 14:48 ; Start 04/07/16 at 14:30; Stop 04/07/16 at 14:31; Status DC Ondansetron HCl (Zofran) 4 mg PRN Q8HRS PRN IV NAUSEA/VOMITING; Start 04/07/16 at 15:15; Stop 04/08/16 at 15:14; Status DC Fentanyl Citrate 50 mcg 50 mcg PRN Q2HR PRN IV PAIN; Start 04/07/16 at 15:15; Stop 04/08/16 at 15:14; Status DC Sodium Chloride (Iv Sodium Chloride 0.9% 1000ml Bag) 1,000 ml @ 125 mls/hr Q8H IV Last administered on 04/08/16 08:52; Start 04/07/16 at 15:11; Stop at 15:10; Status DC Acetaminophen (Tylenol) 650 mg PRN Q4HRS PRN PO FEVER Last administered on 04/08 01:35; Start 04/07/16 at 15:15; Stop 04/08/16 at 15:14; Status DC Albuterol/ Ipratropium (Duoneb) 3 ml RTQID NEB Last administered on 04/08/16 15:19; Start 04/07/16 at 16:00; Stop 04/08/16 at 15:59; Status DC Oseltamivir Phosphate (Tamiflu) 75 mg BID PO Last administered on 04/11/16 08: 14; Start 04/07/16 at 15:15; Stop 04/12/16 at 15:14 Methylprednisolone Sodium Succinate 60 mg 60 mg Q6HRS IV Last administered on 05:42; Start 04/07/16 at 18:00 Ceftriaxone Sodium 1 gm/ Sodium Chloride 50 ml @ 100 mls/hr Q24H IV Last administered on 04/10/16 20:22; Start 04/07/16 at 20:00 Doxycycline Hyclate/Dextrose 100 ml @ 50 mls/hr Q12HR IV Last administered on 04/11/16 08:14; Start 04/07/16 at 21:00 Albuterol Sulfate (Ventolin Neb Soln) 2.5 mg PRN Q2HR PRN NEB DYSPNEA; Start at 20:00 Enoxaparin Sodium (Lovenox 40mg Syringe) 40 mg Q12HR SQ Last administered on 08:15; Start 04/07/16 at 21:00 Insulin Aspart (Novolog) 0-7 UNITS TIDWMEALS SQ Last administered on 04/11/16 08:23; Start 04/08/16 at 08:00 Dextrose 12.5 gm PRN Q15MIN PRN IV SEE COMMENTS; Start 04/08/16 at 07:45 Atorvastatin Calcium (Lipitor) 10 mg HS PO Last administered on 04/10/16 20:22 ; Start 04/08/16 at 21:00 Estradiol (Estrace) 1 mg DAILY PO Last administered on 04/11/16 08:14; Start 04/08/16 at 09:00 Hydrochlorothiazide (Microzide) 12.5 mg HS PO Last administered on 04/10/16 20 :22; Start 04/08/16 at 21:00 Pantoprazole Sodium (Protonix) 40 mg PRN DAILY PRN PO DYSPEPSIA; Start at 07:30 Cetirizine HCl (Zyrtec) 10 mg DAILY PO Last administered on 04/11/16 08:14; Start 04/08/16 at 09:00 Metformin HCl (Glucophage Xr) 750 mg DAILY16 PO Last administered on 04/10/16 17:13; Start 04/08/16 at 16:00 Oxycodone/ Acetaminophen (Percocet 5/325) 1 tab PRN Q6HRS PRN PO PAIN Last administered on 04/10/16 15:28; Start 04/08/16 at 07:45 Albuterol/ Ipratropium (Duoneb) 3 ml RTQID NEB Last administered on 04/11/16 07:04; Start 04/08/16 at 20:00 Zolpidem Tartrate (Ambien) 5 mg PRN QHS PRN PO INSOMNIA; Start 04/08/16 at 22: 30 Active Scripts Active Reported Estradiol 1 Mg Tablet 1 Tab PO DAILY Nexium Capsule (Esomeprazole Magnesium) 40 Mg Capsule.dr 1 Cap PO PRN DAILY PRN Nupur Allergy (Fexofenadine Hcl) 180 Mg Tablet 1 Tab PO DAILY Metformin Hcl Er (Metformin Hcl) 750 Mg Tab.er.24h 1 Tab PO HS Proair Hfa Inhaler (Albuterol Sulfate) 8.5 Gm Hfa.aer.ad 1 Puff INH PRN Q6HRS PRN Hydrochlorothiazide Capsule (Hydrochlorothiazide) 12.5 Mg Capsule 1 Cap PO HS Atorvastatin Calcium 10 Mg Tablet 1 Tab PO HS Vitals/I & O Vital Sign - Last 24 Hours 04/10/16 04/10/16 04/10/16 04/10/16 11:01 11:30 14:44 14:56 Temp 97.5 98.2 97.5 98.2 Pulse 74 88 Resp 20 19 B/P 121/78 138/68 Pulse Ox 93 89 O2 Delivery Venturi Mask Venturi Mask Venturi Mask Venturi Mask O2 Flow Rate 15.0 15.0 04/10/16 04/10/16 04/10/16 04/10/16 15:28 17:21 19:00 20:00 Temp 97.9 97.9 Pulse 73 Resp 19 B/P 161/85 Pulse Ox 89 89 91 O2 Delivery Venturi Mask Venturi Mask Simple Mask Venturi Mask O2 Flow Rate 15.0 15.0 15.0 15.0 04/10/16 04/10/16 04/11/16 04/11/16 20:52 23:00 07:00 07:06 Temp 98.4 98.1 98.4 98.1 Pulse 77 85 Resp 20 20 B/P 139/79 157/80 Pulse Ox 94 93 87 94 O2 Delivery Venturi Mask Venturi Mask Venturi Mask Venturi Mask O2 Flow Rate 15.0 15.0 15.0 15.0 Intake and Output 04/10/16 04/10/16 04/11/16 15:00 23:00 07:00 Intake Total 380 ml 550 ml 1150 ml Balance 380 ml 550 ml 1150 ml ALESHA GARCIA MD Apr 11, 2016 09:19
[2016-04-11] MEDS: GUAIFENESIN ER 600 MG TABLET.ER PO SCH ×2 (10:53→21:04)
[2016-04-11 11:21] VITALS: BP 128/69
--- NOTE | 2016-04-11 13:32 | PDOC ---
PULMONARY PROGRESS NOTES Subjective PT WITH NO INCREASE SOA Vitals Vital Signs Date Time Temp Pulse Resp B/P Pulse Ox O2 Delivery O2 Flow Rate FiO2 04/11/16 11:21 98.8 79 20 128/69 84 Venturi Mask 15.0 98.8 ROS: No Nausea, No Chest Pain, No Abdominal Pain, No Increase Cough General: Alert Lungs: Clear Cardiovascular: S1, S2 Abdomen: Soft Neuro Exam: Alert Extremities: No Edema Skin: Warm Labs Laboratory Tests Test 04/09/16 17:01 04/09/16 20:25 04/10/16 07:10 04/10/16 11:14 Glucose (Fingerstick) 245mg/dL (70-99) 238mg/dL (70-99) 203mg/dL (70-99) 244mg/dL (70-99) Test 04/10/16 16:37 04/10/16 20:28 Glucose (Fingerstick) 278mg/dL (70-99) 241mg/dL (70-99) Laboratory Tests Test 04/10/16 16:37 04/10/16 20:28 Glucose (Fingerstick) 278mg/dL (70-99) 241mg/dL (70-99) Medications Active Scripts Medications Dose Route/Sig Days Date Category Metformin Hcl 500 Mg Tablet 1 Tab PO BID 02/08/16 Reported Proair Hfa Inhaler (Albuterol Sulfate) 8.5 Gm Hfa.aer.ad 1 Puff INH PRN Q6HRS PRN 02/08/16 Reported Hydrochlorothiazide Capsule (Hydrochlorothiazide) 12.5 Mg Capsule 1 Cap PO DAILY 02/08/16 Reported Atorvastatin Calcium 10 Mg Tablet 1 Tab PO DAILY 02/08/16 Reported Impression . 1. Acute respiratory failure, multifactorial. 2. Acute exacerbation of chronic obstructive pulmonary disease. 3. Pneumonia was suspect gram-positive, possibly gram negative. 4. Fever secondary to above. Plan . STILL REQUIRING HIGH 02 WILL RULE OUT PE CONTINUE STEROIDS NEBS 6 MIN WALK PRIOR TO D/C HOPEFULLY SOON ESTRELLA HEATH MD Apr 11, 2016 13:32
[2016-04-11] MEDS ORDERED: IOHEXOL 300 MG/ML 75 ML VIAL IV ONE ×2 (14:30→20:45)
[2016-04-11] MEDS ORDERED: CONTRAST GIVEN MC PRN ×2 (14:45→20:45)
[2016-04-11 14:54] VITALS: BP 131/78
[2016-04-11 19:59] VITALS: BP 167/88
[2016-04-11] MEDS: HYDROCHLOROTHIAZIDE 12.5 MG CAPSULE. PO SCH (21:03)
[2016-04-11] MEDS: ATORVASTATIN CALCIUM 10 MG TABLET. PO SCH (21:04)
[2016-04-11] MEDS: CEFTRIAXONE SODIUM 1 GM in IV NORMAL SALINE 50ML 50 ML IV SCH (21:06)
[2016-04-11 23:59] VITALS: BP 145/80
--- NOTE | 2016-04-12 00:23 | RAD ---
PROCEDURE CT chest with contrast, pulmonary angiogram. HISTORY Hypoxemia. TECHNIQUE Helical CT imaging of the chest is performed after 75 cc Omnipaque 300 IV contrast using pulmonary angiogram protocol. A coronal 3D MIP reconstruction is performed to better evaluate the pulmonary arteries. PQRS: One or more the following individualized dose reduction techniques were utilized for the study: 1. Automated exposure control. 2. Adjustment of the mA and/or kV according to patient size. 3. Use of iterative reconstruction technique. COMPARISON None. FINDINGS The pulmonary arteries are adequately contrast opacified. No CT evidence of pulmonary embolus. The visualized thyroid is symmetric. Borderline enlarged mediastinal lymph nodes. Subcentimeter bilateral hilar lymph nodes. No thoracic aortic dissection. Narrowing at the origin of the celiac artery. Cardiac size normal. No pericardial effusion. No pleural effusion or pneumothorax. Central airways are patent. There is interlobular septal thickening and relatively diffuse ground-glass opacities throughout the lungs. There are linear consolidations in the bilateral anterior upper lobes. There are scattered nodular opacities throughout the lungs. Cholecystectomy. Probable mild fatty infiltration of the liver. There is adrenal gland hyperplasia bilaterally. No acute compression fracture in the thoracic spine. IMPRESSION 1. No CT evidence of pulmonary embolus. 2. There is interlobular septal thickening and relatively diffuse ground-glass opacities, mosaic attenuation pattern in the lower lobes. Differential considerations include pulmonary edema, nonspecific pneumonitis, and/or small airways disease. 3. There are scattered nodular opacities and linear consolidations in the lungs. Findings may be infectious/inflammatory. CT followup will be required to exclude malignancy. 4. Mild fatty infiltration of the liver. Electronically signed by: Christopher Alcantar MD (Apr 12, 2016 00:22:08)
[2016-04-12] MEDS: methylPREDNISolone SOD SUCC PF 125 MG/2 ML VIAL. IV SCH ×5 (00:35→23:53)
[2016-04-12] MEDS: OXYCODONE/APAP 5/325 TABLET. PO PRN ×3 (00:41→18:16)
[2016-04-12 03:59] VITALS: BP 158/78
[2016-04-12 07:00] VITALS: BP 122/70
[2016-04-12] MEDS: IPRATRPIUM/ALBUTEROL 0.5/2.5MG 3 ML NEBU. NEB SCH ×4 (07:26→19:55)
[2016-04-12] MEDS: DOXYCYCLINE HYCLATE 100 MG in IV DEXTROSE 5% 100 ML IV SCH ×2 (08:06→21:17)
[2016-04-12] MEDS: GUAIFENESIN ER 600 MG TABLET.ER PO SCH ×2 (08:07→20:32)
[2016-04-12] MEDS: ESTRADIOL 1 MG TABLET PO SCH (08:07)
[2016-04-12] MEDS: OSELTAMIVIR 75 MG CAPSULE PO SCH (08:07)
[2016-04-12] MEDS: CETIRIZINE HCL 10 MG TABLET PO SCH (08:07)
[2016-04-12] MEDS: ENOXAPARIN 40 MG/0.4 ML DISP.SYRIN. SQ SCH ×2 (08:07→20:34)
[2016-04-12] MEDS: INSULIN ASPART 300 UNITS/3 ML INSULN.PEN SQ SCH ×3 (08:18→16:56)
--- NOTE | 2016-04-12 08:30 | PDOC ---
PULMONARY PROGRESS NOTES Subjective has sob, cough, not able to cough up sputum, has nasal congestion, still on 15 lpm of 02 Vitals Vital Signs Date Time Temp Pulse Resp B/P Pulse Ox O2 Delivery O2 Flow Rate FiO2 04/12/16 07:26 95 Venturi Mask 15.0 04/12/16 07:00 97.6 73 20 122/70 97.6 Comments ros as mentioned as above other sys otherwise neg ROS: No Nausea, No Chest Pain, No Abdominal Pain, No Increase Cough General: Alert HEENT: Other (nc at perrl, shallow oropharynx, nose inflamed mucosa) Lungs: Wheezing Cardiovascular: S1, S2 Abdomen: Soft Neuro Exam: Alert Extremities: No Edema Skin: Warm Labs Laboratory Tests Test 04/10/16 11:14 04/10/16 16:37 04/10/16 20:28 04/11/16 07:33 Glucose (Fingerstick) 244mg/dL (70-99) 278mg/dL (70-99) 241mg/dL (70-99) 198mg/dL (70-99) Test 04/11/16 11:24 04/11/16 16:23 04/11/16 21:18 04/12/16 07:59 Glucose (Fingerstick) 316mg/dL (70-99) 240mg/dL (70-99) 294mg/dL (70-99) 234mg/dL (70-99) Laboratory Tests Test 04/11/16 11:24 04/11/16 16:23 04/11/16 21:18 04/12/16 07:59 Glucose (Fingerstick) 316mg/dL (70-99) 240mg/dL (70-99) 294mg/dL (70-99) 234mg/dL (70-99) Medications Active Scripts Medications Dose Route/Sig Days Date Category Metformin Hcl 500 Mg Tablet 1 Tab PO BID 02/08/16 Reported Proair Hfa Inhaler (Albuterol Sulfate) 8.5 Gm Hfa.aer.ad 1 Puff INH PRN Q6HRS PRN 02/08/16 Reported Hydrochlorothiazide Capsule (Hydrochlorothiazide) 12.5 Mg Capsule 1 Cap PO DAILY 02/08/16 Reported Atorvastatin Calcium 10 Mg Tablet 1 Tab PO DAILY 02/08/[address] of chest, reviewed, 1. No CT evidence of pulmonary embolus. 2. There is interlobular septal thickening and relatively diffuse ground-glass opacities, mosaic attenuation pattern in the lower lobes. Differential considerations include pulmonary edema, nonspecific pneumonitis, and/or small airways disease. 3. There are scattered nodular opacities and linear consolidations in the lungs. Findings may be infectious/inflammatory. CT followup will be required to exclude malignancy. 4. Mild fatty infiltration of the liver. Impression . 1. Acute respiratory failure, multifactorial. 2. Acute exacerbation of chronic obstructive pulmonary disease. 3. Pneumonia was suspect gram-positive, possibly gram negative. 4. Fever secondary to above. 5. allergic rhinitis Plan . titrate fio2 to keep o2 sat 90% CONTINUE STEROIDS NEBS add singulair add ics cont abx 6 MIN WALK PRIOR TO D/C increase activity discussed w JYA Peng MD Apr 12, 2016 08:30
[2016-04-12 11:00] VITALS: BP 143/94
[2016-04-12] MEDS ORDERED: SODIUM CHL/ALOE VERA NASAL GEL 14.1GM TUBE. NS PRN (11:15)
--- NOTE | 2016-04-12 11:21 | PDOC ---
SUBJECTIVE Subjective Pt states that she hopes she can go home soon. Still has cough but is not coughing anything up. Feels like her nasal passages are congested but nothing comes out. She is eating okay. OBJECTIVE Vital Signs Vital Signs Date Time Temp Pulse Resp B/P Pulse Ox O2 Delivery O2 Flow Rate FiO2 04/12/16 08:00 Venturi Mask 15.0 04/12/16 07:26 95 Venturi Mask 15.0 04/12/16 07:00 97.6 73 20 122/70 93 Venturi Mask 15.0 97.6 04/12/16 03:59 97.5 87 22 158/78 94 Venturi Mask 97.5 04/12/16 01:41 Venturi Mask 15.0 04/12/16 00:41 Venturi Mask 15.0 04/11/16 23:59 96.6 76 22 145/80 91 Venturi Mask 96.6 04/11/16 20:22 95 Venturi Mask 15.0 04/11/16 20:00 Venturi Mask 15.0 04/11/16 19:59 97.9 72 22 167/88 95 Venturi Mask 97.9 04/11/16 14:54 97.9 63 20 131/78 94 Venturi Mask 15.0 97.9 04/11/16 14:39 Venturi Mask 15.0 04/11/16 11:21 98.8 79 20 128/69 84 Venturi Mask 15.0 98.8 I & O Intake and Output 04/12/16 07:00 Intake Total 200 ml Balance 200 ml Intake Oral 100 ml IV Total 100 ml # Voids 5 PHYSICAL EXAM Physical Exam GEN: NAD, AOX3, wearing mask HEENT: dry mucous membranes, EOMI, no scleral icterus/injection Cardiac: distant heart tones, no M/R/G Lungs: fine crackles throughout Abd: soft, non distended, NTTP Ext: no erythema/edema LE bilaterally ASSESSMENT/PLAN Assessment/Plan Pt is a 55yo CF admitted for acute respiratory failure 2/2 COPD exacerbation, PNA and flu 1. Acute respiratory failure with influenza, pneumonia and AE COPD - continues to make slow progress. Still needs high flow of O2 to maintain sats. Continue present tx with O2, nebs, Solumedrol, Tamiflu and abx. Pulmonary following. 2. DM2 - BS uncontrolled due to being on steroids. Will add Levemir, continue SSI (received 14 units over last 24H) 3. HTN - controlled, continue home meds. Problems: COMMENT Lab Laboratory Tests Test 04/11/16 11:24 04/11/16 16:23 04/11/16 21:18 04/12/16 07:59 Glucose (Fingerstick) 316mg/dL (70-99) 240mg/dL (70-99) 294mg/dL (70-99) 234mg/dL (70-99) Test 04/12/16 11:10 Glucose (Fingerstick) 351mg/dL (70-99) KAZ BOWIE MD Apr 12, 2016 11:21
[2016-04-12] MEDS: BUDESONIDE 0.5 MG/2 ML NEBU NEB SCH ×2 (11:26→19:55)
[2016-04-12] MEDS ORDERED: GUAIFENESIN ER 600 MG TABLET.ER PO SCH (11:30)
[2016-04-12 15:00] VITALS: BP 128/75
[2016-04-12] MEDS ORDERED: ONDANSETRON PF 4 MG/2 ML VIAL. IV PRN (17:30)
[2016-04-12 19:59] VITALS: BP 137/65
[2016-04-12] MEDS: CEFTRIAXONE SODIUM 1 GM in IV NORMAL SALINE 50ML 50 ML IV SCH (20:04)
[2016-04-12] MEDS: ATORVASTATIN CALCIUM 10 MG TABLET. PO SCH (20:32)
[2016-04-12] MEDS: HYDROCHLOROTHIAZIDE 12.5 MG CAPSULE. PO SCH (20:32)
[2016-04-12] MEDS: MONTELUKAST SODIUM 10 MG TABLET. PO SCH (20:32)
[2016-04-12] MEDS ORDERED: INSULIN DETEMIR 300 UNITS/3 ML INSULN.PEN. SQ SCH (21:00)
[2016-04-12 23:59] VITALS: BP 125/50
[2016-04-13 03:59] VITALS: BP 128/76
[2016-04-13] MEDS: methylPREDNISolone SOD SUCC PF 125 MG/2 ML VIAL. IV SCH (05:45)
[2016-04-13 07:00] VITALS: BP 143/72
[2016-04-13] MEDS: BUDESONIDE 0.5 MG/2 ML NEBU NEB SCH ×2 (07:01→20:00)
[2016-04-13] MEDS: IPRATRPIUM/ALBUTEROL 0.5/2.5MG 3 ML NEBU. NEB SCH ×4 (07:03→20:00)
[2016-04-13] MEDS: FLUTICASONE 50MCG/NASAL SPRAY 16GM BOTTLE. NS SCH (07:55)
[2016-04-13] MEDS: ESTRADIOL 1 MG TABLET PO SCH (07:55)
[2016-04-13] MEDS: CETIRIZINE HCL 10 MG TABLET PO SCH (07:55)
[2016-04-13] MEDS: GUAIFENESIN ER 600 MG TABLET.ER PO SCH ×2 (07:55→20:24)
[2016-04-13] MEDS: DOXYCYCLINE HYCLATE 100 MG in IV DEXTROSE 5% 100 ML IV SCH ×2 (07:56→21:30)
[2016-04-13] MEDS: ENOXAPARIN 40 MG/0.4 ML DISP.SYRIN. SQ SCH ×2 (07:56→20:25)
[2016-04-13] MEDS: INSULIN ASPART 300 UNITS/3 ML INSULN.PEN SQ SCH ×3 (08:04→17:02)
--- NOTE | 2016-04-13 08:53 | PDOC ---
PULMONARY PROGRESS NOTES Subjective has sob, cough, has nasal congestion, on 02 5 lpm Vitals Vital Signs Date Time Temp Pulse Resp B/P Pulse Ox O2 Delivery O2 Flow Rate FiO2 04/13/16 08:23 Nasal Cannula 5.0 04/13/16 07:03 92 04/13/16 07:00 97.7 76 20 143/72 97.7 Comments ros as mentioned as above other sys otherwise neg ROS: No Nausea, No Chest Pain, No Abdominal Pain, No Increase Cough General: Alert HEENT: Other (nc at perrl, shallow oropharynx, nose inflamed mucosa) Lungs: Wheezing, Crackles Cardiovascular: S1, S2 Abdomen: Soft Neuro Exam: Alert Extremities: No Edema Skin: Warm Labs Laboratory Tests Test 04/11/16 11:24 04/11/16 16:23 04/11/16 21:18 04/12/16 07:59 Glucose (Fingerstick) 316mg/dL (70-99) 240mg/dL (70-99) 294mg/dL (70-99) 234mg/dL (70-99) Test 04/12/16 11:10 04/12/16 12:35 04/12/16 16:35 04/12/16 22:36 Glucose (Fingerstick) 351mg/dL (70-99) 313mg/dL (70-99) 276mg/dL (70-99) [id number] Natriuretic Peptide 654pg/mL (0-124) Laboratory Tests Test 04/12/16 11:10 04/12/16 12:35 04/12/16 16:35 04/12/16 22:36 Glucose (Fingerstick) 351mg/dL (70-99) 313mg/dL (70-99) 276mg/dL (70-99) [id number]-Type Natriuretic Peptide 654pg/mL (0-124) Medications Active Scripts Medications Dose Route/Sig Days Date Category Metformin Hcl 500 Mg Tablet 1 Tab PO BID 02/08/16 Reported Proair Hfa Inhaler (Albuterol Sulfate) 8.5 Gm Hfa.aer.ad 1 Puff INH PRN Q6HRS PRN 02/08/16 Reported Hydrochlorothiazide Capsule (Hydrochlorothiazide) 12.5 Mg Capsule 1 Cap PO DAILY 02/08/16 Reported Atorvastatin Calcium 10 Mg Tablet 1 Tab PO DAILY 02/08/[address] of chest, reviewed, 1. No CT evidence of pulmonary embolus. 2. There is interlobular septal thickening and relatively diffuse ground-glass opacities, mosaic attenuation pattern in the lower lobes. Differential considerations include pulmonary edema, nonspecific pneumonitis, and/or small airways disease. 3. There are scattered nodular opacities and linear consolidations in the lungs. Findings may be infectious/inflammatory. CT followup will be required to exclude malignancy. 4. Mild fatty infiltration of the liver. Impression . 1. Acute respiratory failure, multifactorial. 2. Acute exacerbation of chronic obstructive pulmonary disease. 3. Pneumonia was suspect gram-positive, possibly gram negative. 4. Fever secondary to above. 5. allergic rhinitis Plan . titrate fio2 to keep o2 sat 90% change solumedrol to 40 mg q 8 hrs NEBS singulair ics cont abx lovenox protonix for prophylaxis 6 MIN WALK PRIOR TO D/C increase activity discussed w pt JAY ORTIZ MD Apr 13, 2016 08:53
[2016-04-13 11:00] VITALS: BP 106/73
[2016-04-13] MEDS ORDERED: FUROSEMIDE 40 MG TABLET PO ONE (13:30)
--- NOTE | 2016-04-13 13:31 | PDOC ---
SUBJECTIVE Subjective Pt states that she is feeling much better today. She is currently down to 4L O2. She is hoping to be able to go home tomorrow. OBJECTIVE Vital Signs Vital Signs Date Time Temp Pulse Resp B/P Pulse Ox O2 Delivery O2 Flow Rate FiO2 04/13/16 11:25 90 Nasal Cannula 4.0 04/13/16 11:00 97.7 69 20 106/73 96 Nasal Cannula 4.0 97.7 04/13/16 08:23 Nasal Cannula 5.0 04/13/16 07:03 92 Venturi Mask 15.0 04/13/16 07:00 97.7 76 20 143/72 92 Venturi Mask 15.0 97.7 04/13/16 03:59 97.5 65 20 128/76 92 Venturi Mask 97.5 04/12/16 23:59 97.5 66 20 125/50 92 Venturi Mask 97.5 04/12/16 23:43 94 Venturi Mask 15.0 04/12/16 20:00 Nasal Cannula 5.0 04/12/16 19:59 97.7 68 18 137/65 91 Nasal Cannula 5.0 97.7 04/12/16 19:57 93 Nasal Cannula 6.0 04/12/16 18:16 Nasal Cannula 04/12/16 15:36 Venturi Mask 15.0 04/12/16 15:00 97.5 92 20 128/75 95 Venturi Mask 15.0 97.5 I & O Intake and Output 04/13/16 07:00 Intake Total 1160 ml Balance 1160 ml Intake Oral 1160 ml # Voids 3 # Bowel Movements 1 PHYSICAL EXAM Physical Exam GEN: NAD, AOX3, wearing NC HEENT: dry mucous membranes, EOMI, no scleral icterus/injection Cardiac: RRR, no M/R/G Lungs: CTAB, regular breathing rate and effort Abd: soft, non distended, NTTP Ext: no erythema/edema LE bilaterally ASSESSMENT/PLAN Assessment/Plan Pt is a 55yo CF admitted for acute respiratory failure 2/2 COPD exacerbation, PNA and flu 1. Acute respiratory failure with influenza, pneumonia and AE COPD - pt significantly improved today. Pulmonary following; decreased Solumedrol dose. Continue present tx with O2, nebs, Solumedrol, Tamiflu and abx. 2. DM2 - BS uncontrolled due to being on steroids. Levemir added yesterday, will increase from 10-15 units. Continue SSI (received 18 units over last 24H) 3. HTN - controlled, continue home meds. Problems: COMMENT Lab Laboratory Tests Test 04/12/16 16:35 04/12/16 22:36 04/13/16 07:30 04/13/16 10:37 Glucose (Fingerstick) 313mg/dL (70-99) 276mg/dL (70-99) 250mg/dL (70-99) 401mg/dL (70-99) KAZ BOWIE MD Apr 13, 2016 13:31
[2016-04-13] MEDS: methylPREDNISolone SOD SUCC PF 40 MG/ML VIAL. IV SCH ×2 (13:37→21:32)
[2016-04-13] MEDS: OXYCODONE/APAP 5/325 TABLET. PO PRN (13:37)
[2016-04-13 15:00] VITALS: BP 110/66
[2016-04-13 19:00] VITALS: BP 88/59
[2016-04-13] MEDS: ATORVASTATIN CALCIUM 10 MG TABLET. PO SCH (20:24)
[2016-04-13] MEDS: MONTELUKAST SODIUM 10 MG TABLET. PO SCH (20:24)
[2016-04-13] MEDS: HYDROCHLOROTHIAZIDE 12.5 MG CAPSULE. PO SCH (20:24)
[2016-04-13] MEDS: CEFTRIAXONE SODIUM 1 GM in IV NORMAL SALINE 50ML 50 ML IV SCH (20:25)
[2016-04-13] MEDS: INSULIN DETEMIR 300 UNITS/3 ML INSULN.PEN. SQ SCH (21:39)
[2016-04-13 23:02] VITALS: BP 114/54
[2016-04-14 03:00] VITALS: BP 132/73
[2016-04-14] MEDS: methylPREDNISolone SOD SUCC PF 40 MG/ML VIAL. IV SCH (06:08)
[2016-04-14 07:28] VITALS: BP 133/81
[2016-04-14] MEDS: BUDESONIDE 0.5 MG/2 ML NEBU NEB SCH (07:41)
[2016-04-14] MEDS: IPRATRPIUM/ALBUTEROL 0.5/2.5MG 3 ML NEBU. NEB SCH ×4 (07:41→20:30)
[2016-04-14] MEDS: CETIRIZINE HCL 10 MG TABLET PO SCH (08:09)
[2016-04-14] MEDS: ESTRADIOL 1 MG TABLET PO SCH (08:10)
[2016-04-14] MEDS: ENOXAPARIN 40 MG/0.4 ML DISP.SYRIN. SQ SCH ×2 (08:10→21:36)
[2016-04-14] MEDS: GUAIFENESIN ER 600 MG TABLET.ER PO SCH ×2 (08:10→21:35)
[2016-04-14] MEDS: FLUTICASONE 50MCG/NASAL SPRAY 16GM BOTTLE. NS SCH (08:11)
[2016-04-14] MEDS: INSULIN ASPART 300 UNITS/3 ML INSULN.PEN SQ SCH ×3 (08:19→17:10)
[2016-04-14] MEDS ORDERED: PREDNISONE 20 MG TABLET PO ONE (09:00)
[2016-04-14] MEDS ORDERED: GUAI600T38 PO (09:01)
[2016-04-14] MEDS ORDERED: IPRA3AMP NEB (09:01)
[2016-04-14] MEDS ORDERED: INSU100I27 SQ (09:01)
[2016-04-14] MEDS ORDERED: FLUT16SP NS (09:01)
[2016-04-14] MEDS ORDERED: CEFP100T PO (09:01)
[2016-04-14] MEDS ORDERED: DOXY100T PO (09:01)
[2016-04-14] MEDS ORDERED: PRED-220 PO (09:01)
[2016-04-14] MEDS ORDERED: MONT10TA9 PO (09:01)
[2016-04-14] MEDS: CEFPODOXIME PROXETIL 100 MG TABLET PO SCH ×2 (09:26→21:36)
[2016-04-14] MEDS: DOXYCYCLINE HYCLATE 100 MG TABLET PO SCH ×2 (09:26→21:35)
[2016-04-14 10:37] VITALS: BP 111/63
[2016-04-14] MEDS ORDERED: INSULIN ASPART 300 UNITS/3 ML INSULN.PEN SQ ONE (12:00)
--- NOTE | 2016-04-14 14:07 | PDOC ---
PROGRESS NOTES Subjective Subjective Patient states she feels better and wants to go home. Patient still on 4 L nasal cannula oxygen. Patient was not previously on oxygen prior to this hospital stay. Patient still on IV steroids. Patient's blood sugar today was greater than 400. Objective Objective Vital Signs Date Time Temp Pulse Resp B/P Pulse Ox O2 Delivery O2 Flow Rate FiO2 04/14/16 11:30 Nasal Cannula 4.0 04/14/16 10:37 98.6 73 17 111/63 90 98.6 Intake and Output 04/14/16 07:00 Intake Total 2510 ml Output Total 1100 ml Balance 1410 ml Intake Oral 2510 ml Output Urine Total 1100 ml # Voids 5 Physical Exam Abdomen: Normal bowel sounds Heart: Regular rate Extremities: No edema General: Alert Lungs: Other (continued a sputum respiratory wheezing bilaterally.) Assessment Assessment Problems Medical Problems: (1) Hypoxia Status: Acute (2) Influenza Status: Acute (3) Influenza A Status: Acute (4) Pneumonia Status: Acute Acute respiratory failure Influenza A Community acquired pneumonia Suspected underlying COPD Acute exacerbation of COPD Type 2 diabetes Hypertension Plan Plan of Care Switch to by mouth medications. DC Solu-Medrol and start prednisone. Subcutaneous insulin to control blood sugar. Obtain 6 minute walk to establish to needs. Home with home health and oxygen if needed once stable. Comment Review of Relevant I have reviewed the following items marily (where applicable) has been applied. Labs Laboratory Tests Test 04/12/16 16:35 04/12/16 22:36 04/13/16 07:30 04/13/16 10:37 Glucose (Fingerstick) 313mg/dL (70-99) 276mg/dL (70-99) 250mg/dL (70-99) 401mg/dL (70-99) Test 04/13/16 16:01 04/13/16 21:14 04/14/16 07:19 Glucose (Fingerstick) 339mg/dL (70-99) 253mg/dL (70-99) 226mg/dL (70-99) Laboratory Tests Test 04/13/16 16:01 04/13/16 21:14 04/14/16 07:19 Glucose (Fingerstick) 339mg/dL (70-99) 253mg/dL (70-99) 226mg/dL (70-99) Microbiology 04/07/16 Blood Culture - Final, Complete NO GROWTH AFTER 5 DAYS Medications Current Medications Sodium Chloride (Iv Sodium Chloride 0.9% 1000ml Bag) 1,000 ml @ 1,000 mls/hr Q1H IV Last administered on 04/07/16 13:37; Start 04/07/16 at 13:30; Stop at 14:29; Status DC Albuterol/ Ipratropium (Duoneb) 3 ml 1X ONCE NEB Last administered on 13:45; Start 04/07/16 at 13:30; Stop 04/07/16 at 13:31; Status DC Methylprednisolone Sodium Succinate (Solu-Medrol 125mg Vial) 125 mg 1X ONCE IV Last administered on 04/07/16 13:37; Start 04/07/16 at 13:30; Stop 04/07/16 at 13:31; Status DC Acetaminophen (Tylenol) 650 mg 1X ONCE PO Last administered on 04/07/16 14:48 ; Start 04/07/16 at 14:30; Stop 04/07/16 at 14:31; Status DC Ondansetron HCl (Zofran) 4 mg PRN Q8HRS PRN IV NAUSEA/VOMITING; Start 04/07/16 at 15:15; Stop 04/08/16 at 15:14; Status DC Fentanyl Citrate 50 mcg 50 mcg PRN Q2HR PRN IV PAIN; Start 04/07/16 at 15:15; Stop 04/08/16 at 15:14; Status DC Sodium Chloride (Iv Sodium Chloride 0.9% 1000ml Bag) 1,000 ml @ 125 mls/hr Q8H IV Last administered on 04/08/16 08:52; Start 04/07/16 at 15:11; Stop at 15:10; Status DC Acetaminophen (Tylenol) 650 mg PRN Q4HRS PRN PO FEVER Last administered on 04/08 01:35; Start 04/07/16 at 15:15; Stop 04/08/16 at 15:14; Status DC Albuterol/ Ipratropium (Duoneb) 3 ml RTQID NEB Last administered on 04/08/16 15:19; Start 04/07/16 at 16:00; Stop 04/08/16 at 15:59; Status DC Oseltamivir Phosphate (Tamiflu) 75 mg BID PO Last administered on 04/12/16 08: 07; Start 04/07/16 at 15:15; Stop 04/12/16 at 15:14; Status DC Methylprednisolone Sodium Succinate 60 mg 60 mg Q6HRS IV Last administered on 05:45; Start 04/07/16 at 18:00; Stop 04/13/16 at 08:53; Status DC Ceftriaxone Sodium 1 gm/ Sodium Chloride 50 ml @ 100 mls/hr Q24H IV Last administered on 04/13/16 20:25; Start 04/07/16 at 20:00; Stop 04/13/16 at 23:59 ; Status DC Doxycycline Hyclate/Dextrose 100 ml @ 50 mls/hr Q12HR IV Last administered on 04/13/16 21:30; Start 04/07/16 at 21:00; Stop 04/13/16 at 23:59; Status DC Albuterol Sulfate (Ventolin Neb Soln) 2.5 mg PRN Q2HR PRN NEB DYSPNEA Last administered on 04/12/16 23:39; Start 04/07/16 at 20:00 Enoxaparin Sodium (Lovenox 40mg Syringe) 40 mg Q12HR SQ Last administered on 08:10; Start 04/07/16 at 21:00 Insulin Aspart (Novolog) 0-7 UNITS TIDWMEALS SQ Last administered on 04/14/16 08:19; Start 04/08/16 at 08:00 Dextrose 12.5 gm PRN Q15MIN PRN IV SEE COMMENTS; Start 04/08/16 at 07:45 Atorvastatin Calcium (Lipitor) 10 mg HS PO Last administered on 04/13/16 20:24 ; Start 04/08/16 at 21:00 Estradiol (Estrace) 1 mg DAILY PO Last administered on 04/14/16 08:10; Start 04/08/16 at 09:00 Hydrochlorothiazide (Microzide) 12.5 mg HS PO Last administered on 04/13/16 20 :24; Start 04/08/16 at 21:00 Pantoprazole Sodium (Protonix) 40 mg PRN DAILY PRN PO DYSPEPSIA; Start at 07:30 Cetirizine HCl (Zyrtec) 10 mg DAILY PO Last administered on 04/14/16 08:09; Start 04/08/16 at 09:00 Metformin HCl (Glucophage Xr) 750 mg DAILY16 PO Last administered on 04/10/16 17:13; Start 04/08/16 at 16:00; Stop 04/11/16 at 14:37; Status DC Oxycodone/ Acetaminophen (Percocet 5/325) 1 tab PRN Q6HRS PRN PO PAIN Last administered on 04/13/16 13:37; Start 04/08/16 at 07:45 Albuterol/ Ipratropium (Duoneb) 3 ml RTQID NEB Last administered on 04/14/16 11:29; Start 04/08/16 at 20:00 Zolpidem Tartrate (Ambien) 5 mg PRN QHS PRN PO INSOMNIA Last administered on 00:14; Start 04/08/16 at 22:30 Guaifenesin (Mucinex) 600 mg BID PO Last administered on 04/14/16 08:10; Start 04/11/16 at 09:15 Iohexol (Omnipaque 300 Mg/ml) 75 ml 1X ONCE IV Last administered on 04/11/16 12:05; Start 04/11/16 at 14:30; Stop 04/11/16 at 14:37; Status DC Metformin HCl (Glucophage Xr) 750 mg DAILY16 PO ; Start 04/14/16 at 16:00 Info (Do NOT chart on this entry -- for MONITORING) 1 each PRN DAILY PRN MC SEE COMMENTS; Start 04/11/16 at 14:45; Stop 04/13/16 at 14:44; Status DC Iohexol (Omnipaque 300 Mg/ml) 75 ml 1X ONCE IV ; Start 04/11/16 at 20:45; Stop 04/11/16 at 20:46; Status DC Info (Do NOT chart on this entry -- for MONITORING) 1 each PRN DAILY PRN MC SEE COMMENTS; Start 04/11/16 at 20:45; Stop 04/13/16 at 20:44; Status DC Montelukast Sodium (Singulair) 10 mg QHS PO Last administered on 04/13/16 20: 24; Start 04/12/16 at 21:00 Budesonide (Pulmicort) 0.5 mg RTBID NEB Last administered on 04/14/16 07:41; Start 04/12/16 at 09:00 Sodium Chloride (Aiken Saline Nasal) 1 maximiliano PRN DAILY PRN NS NASAL CONGESTION Last administered on 04/12/16 20:04; Start 04/12/16 at 11:15 Fluticasone Propionate (Flonase) 2 spray DAILY NS Last administered on 08:11; Start 04/13/16 at 09:00 Guaifenesin (Mucinex) 600 mg BID PO ; Start 04/12/16 at 11:30; Status Cancel Insulin Detemir (Levemir) 10 units QHS SQ Last administered on 04/12/16 22:42 ; Start 04/12/16 at 21:00; Stop 04/13/16 at 13:31; Status DC Ondansetron HCl (Zofran) 4 mg PRN Q6HRS PRN IV NAUSEA/VOMITING; Start 04/12/16 at 17:30 Methylprednisolone Sodium Succinate (Solu-Medrol 40mg Vial) 40 mg Q8HRS IV Last administered on 04/14/16 06:08; Start 04/13/16 at 14:00; Stop 04/14/16 at 08:53; Status DC Doxycycline Hyclate (Vibra-Tab) 100 mg BID PO Last administered on 04/14/16 09 :26; Start 04/14/16 at 09:00 Cefpodoxime Proxetil (Vantin) 200 mg BID PO Last administered on 04/14/16 09: 26; Start 04/14/16 at 09:00 Furosemide (Lasix) 40 mg 1X ONCE PO Last administered on 04/13/16 13:37; Start 04/13/16 at 13:30; Stop 04/13/16 at 13:31; Status DC Insulin Detemir (Levemir) 15 units QHS SQ Last administered on 04/13/16 21:39 ; Start 04/13/16 at 21:00 Prednisone (Prednisone) 60 mg 1X ONCE PO Last administered on 04/14/16 09:26 ; Start 04/14/16 at 09:00; Stop 04/14/16 at 09:01; Status DC Insulin Aspart (Novolog) 10 units 1X ONCE SQ Last administered on 04/14/16t 12 :04; Start 04/14/16 at 12:00; Stop 04/14/16 at 12:01; Status DC Active Scripts Active Reported Estradiol 1 Mg Tablet 1 Tab PO DAILY Nexium Capsule (Esomeprazole Magnesium) 40 Mg Capsule.dr 1 Cap PO PRN DAILY PRN Nupur Allergy (Fexofenadine Hcl) 180 Mg Tablet 1 Tab PO DAILY Metformin Hcl Er (Metformin Hcl) 750 Mg Tab.er.24h 1 Tab PO HS Proair Hfa Inhaler (Albuterol Sulfate) 8.5 Gm Hfa.aer.ad 1 Puff INH PRN Q6HRS PRN Hydrochlorothiazide Capsule (Hydrochlorothiazide) 12.5 Mg Capsule 1 Cap PO HS Atorvastatin Calcium 10 Mg Tablet 1 Tab PO HS Vitals/I & O Vital Sign - Last 24 Hours 04/13/16 04/13/16 04/13/16 04/13/16 15:00 15:11 19:00 20:00 Temp 97.5 98.5 97.5 98.5 Pulse 65 60 Resp 20 20 B/P 110/66 88/59 Pulse Ox 91 93 94 O2 Delivery Nasal Cannula Nasal Cannula Room Air Nasal Cannula O2 Flow Rate 4.0 4.0 4.0 04/13/16 04/13/16 04/13/16 04/13/16 21:09 21:11 21:11 23:02 Temp 98.2 98.2 Pulse 67 Resp 20 B/P 114/54 Pulse Ox 98 98 98 93 O2 Delivery Nasal Cannula Nasal Cannula Nasal Cannula Nasal Cannula O2 Flow Rate 4.0 4.0 4.0 04/14/16 04/14/16 04/14/16 04/14/16 03:00 07:28 07:44 07:45 Temp 97.7 98.0 97.7 98.0 Pulse 79 64 Resp 20 20 B/P 132/73 133/81 Pulse Ox 95 91 97 97 O2 Delivery Nasal Cannula Nasal Cannula Nasal Cannula Nasal Cannula O2 Flow Rate 4.0 4.0 4.0 04/14/16 04/14/16 04/14/16 08:00 10:37 11:30 Temp 98.6 98.6 Pulse 73 Resp 17 B/P 111/63 Pulse Ox 90 O2 Delivery Nasal Cannula Nasal Cannula Nasal Cannula O2 Flow Rate 4.0 4.0 4.0 Intake and Output 04/13/16 04/13/16 04/14/16 15:00 23:00 07:00 Intake Total 1140 ml 350 ml 1020 ml Output Total 1100 ml Balance 1140 ml 350 ml -80 ml ALBERTO RAMIREZ MD Apr 14, 2016 14:07
[2016-04-14 14:43] VITALS: BP 117/76
[2016-04-14] MEDS ORDERED: METFORMIN XR 500 MG TAB.ER.24H PO SCH (16:00)
[2016-04-14] MEDS: OXYCODONE/APAP 5/325 TABLET. PO PRN (16:23)
--- NOTE | 2016-04-14 18:53 | PDOC ---
PULMONARY PROGRESS NOTES Subjective PT LESS SOA Vitals Vital Signs Date Time Temp Pulse Resp B/P Pulse Ox O2 Delivery O2 Flow Rate FiO2 04/14/16 16:01 Nasal Cannula 4.0 04/14/16 14:43 98.5 75 18 117/76 92 98.5 ROS: No Nausea, No Chest Pain, No Abdominal Pain, No Increase Cough General: Alert HEENT: Other (nc at perrl, shallow oropharynx, nose inflamed mucosa) Lungs: Wheezing, Crackles Cardiovascular: S1, S2 Abdomen: Soft Neuro Exam: Alert Extremities: No Edema Skin: Warm Labs Laboratory Tests Test 04/12/16 22:36 04/13/16 07:30 04/13/16 10:37 04/13/16 16:01 Glucose (Fingerstick) 276mg/dL (70-99) 250mg/dL (70-99) 401mg/dL (70-99) 339mg/dL (70-99) Test 04/13/16 21:14 04/14/16 07:19 Glucose (Fingerstick) 253mg/dL (70-99) 226mg/dL (70-99) Laboratory Tests Test 04/13/16 21:14 04/14/16 07:19 Glucose (Fingerstick) 253mg/dL (70-99) 226mg/dL (70-99) Medications Active Scripts Medications Dose Route/Sig Days Date Category Metformin Hcl 500 Mg Tablet 1 Tab PO BID 02/08/16 Reported Proair Hfa Inhaler (Albuterol Sulfate) 8.5 Gm Hfa.aer.ad 1 Puff INH PRN Q6HRS PRN 02/08/16 Reported Hydrochlorothiazide Capsule (Hydrochlorothiazide) 12.5 Mg Capsule 1 Cap PO DAILY 02/08/16 Reported Atorvastatin Calcium 10 Mg Tablet 1 Tab PO DAILY 02/08/[address] of chest, reviewed, 1. No CT evidence of pulmonary embolus. 2. There is interlobular septal thickening and relatively diffuse ground-glass opacities, mosaic attenuation pattern in the lower lobes. Differential considerations include pulmonary edema, nonspecific pneumonitis, and/or small airways disease. 3. There are scattered nodular opacities and linear consolidations in the lungs. Findings may be infectious/inflammatory. CT followup will be required to exclude malignancy. 4. Mild fatty infiltration of the liver. Impression . 1. Acute respiratory failure, multifactorial. 2. Acute exacerbation of chronic obstructive pulmonary disease. 3. Pneumonia was suspect gram-positive, possibly gram negative. 4. Fever secondary to above. 5. allergic rhinitis Plan . 6 MIN WALK HOME IN AM SEE ORDERS FOLLOW UP IN OFFICE IN 4-6 WEEKS ESTRELLA HEATH MD Apr 14, 2016 18:53
[2016-04-14 19:00] VITALS: BP 136/84
[2016-04-14] MEDS: ATORVASTATIN CALCIUM 10 MG TABLET. PO SCH (21:35)
[2016-04-14] MEDS: HYDROCHLOROTHIAZIDE 12.5 MG CAPSULE. PO SCH (21:35)
[2016-04-14] MEDS: MONTELUKAST SODIUM 10 MG TABLET. PO SCH (21:36)
[2016-04-14] MEDS: INSULIN DETEMIR 300 UNITS/3 ML INSULN.PEN. SQ SCH (21:43)
[2016-04-14 23:39] VITALS: BP 141/60
[2016-04-15 03:40] VITALS: BP 131/65
[2016-04-15 07:06] VITALS: BP 114/74
[2016-04-15] MEDS: IPRATRPIUM/ALBUTEROL 0.5/2.5MG 3 ML NEBU. NEB SCH ×2 (07:06→11:07)
[2016-04-15] MEDS: INSULIN ASPART 300 UNITS/3 ML INSULN.PEN SQ SCH ×2 (07:46→12:17)
[2016-04-15] MEDS: FLUTICASONE 50MCG/NASAL SPRAY 16GM BOTTLE. NS SCH (07:48)
[2016-04-15] MEDS: GUAIFENESIN ER 600 MG TABLET.ER PO SCH (07:49)
[2016-04-15] MEDS: ESTRADIOL 1 MG TABLET PO SCH (07:49)
[2016-04-15] MEDS: CEFPODOXIME PROXETIL 100 MG TABLET PO SCH (07:50)
[2016-04-15] MEDS: DOXYCYCLINE HYCLATE 100 MG TABLET PO SCH (07:50)
[2016-04-15] MEDS: CETIRIZINE HCL 10 MG TABLET PO SCH (07:50)
[2016-04-15] MEDS: ENOXAPARIN 40 MG/0.4 ML DISP.SYRIN. SQ SCH (07:50)
[2016-04-15] MEDS: OXYCODONE/APAP 5/325 TABLET. PO PRN (07:59)
[2016-04-15] MEDS ORDERED: PREDNISONE 10 MG TABLET PO SCH (09:00)
[2016-04-15] MEDS ORDERED: FLUT1DIS3 IH (09:12)
--- NOTE | 2016-04-15 09:33 | PDOC ---
PULMONARY PROGRESS NOTES Subjective PT LESS SOA Vitals Vital Signs Date Time Temp Pulse Resp B/P Pulse Ox O2 Delivery O2 Flow Rate FiO2 04/15/16 08:12 Nasal Cannula 4.0 04/15/16 07:06 98.0 79 17 114/74 93 98.0 ROS: No Nausea, No Chest Pain, No Abdominal Pain, No Increase Cough General: Alert HEENT: Other (nc at perrl, shallow oropharynx, nose inflamed mucosa) Lungs: Wheezing (faint post) Cardiovascular: S1, S2 Abdomen: Soft Neuro Exam: Alert Extremities: No Edema Skin: Warm Labs Laboratory Tests Test 04/13/16 10:37 04/13/16 16:01 04/13/16 21:14 04/14/16 07:19 Glucose (Fingerstick) 401mg/dL (70-99) 339mg/dL (70-99) 253mg/dL (70-99) 226mg/dL (70-99) Test 04/14/16 16:25 04/14/16 21:28 04/15/16 07:05 Glucose (Fingerstick) 238mg/dL (70-99) 262mg/dL (70-99) 145mg/dL (70-99) Laboratory Tests Test 04/14/16 16:25 04/14/16 21:28 04/15/16 07:05 Glucose (Fingerstick) 238mg/dL (70-99) 262mg/dL (70-99) 145mg/dL (70-99) Medications Active Scripts Medications Dose Route/Sig Days Date Category Metformin Hcl 500 Mg Tablet 1 Tab PO BID 02/08/16 Reported Proair Hfa Inhaler (Albuterol Sulfate) 8.5 Gm Hfa.aer.ad 1 Puff INH PRN Q6HRS PRN 02/08/16 Reported Hydrochlorothiazide Capsule (Hydrochlorothiazide) 12.5 Mg Capsule 1 Cap PO DAILY 02/08/16 Reported Atorvastatin Calcium 10 Mg Tablet 1 Tab PO DAILY 02/08/[address] of chest, reviewed, 1. No CT evidence of pulmonary embolus. 2. There is interlobular septal thickening and relatively diffuse ground-glass opacities, mosaic attenuation pattern in the lower lobes. Differential considerations include pulmonary edema, nonspecific pneumonitis, and/or small airways disease. 3. There are scattered nodular opacities and linear consolidations in the lungs. Findings may be infectious/inflammatory. CT followup will be required to exclude malignancy. 4. Mild fatty infiltration of the liver. Impression . 1. Acute respiratory failure, multifactorial. 2. Acute exacerbation of chronic obstructive pulmonary disease. 3. Pneumonia was suspect gram-positive, possibly gram negative. 4. Fever secondary to above. 5. allergic rhinitis Plan . 6 MIN WALK DONE, NEEDS 4 LITRES AT [facility] TODAY D/W DR AVENDANO FOLLOW UP IN OFFICE IN 4-6 WEEKS WITH MERARI RAYA MD Apr 15, 2016 09:33
[2016-04-15 10:39] VITALS: BP 122/63
--- NOTE | 2016-04-15 12:06 | DS ---
DATE OF DISCHARGE: 04/15/2016 ADMITTING DIAGNOSIS: Acute respiratory failure. SECONDARY DIAGNOSES: 1. Influenza A infection. 2. Community-acquired pneumonia. 3. Type 2 diabetes. 4. Hypertension. 5. Allergic rhinitis. 6. Gastroesophageal reflux disease. 7. Underlying chronic obstructive pulmonary disease with exacerbation. HISTORY OF PRESENT ILLNESS AND HOSPITAL COURSE: This patient is a 55-year-old female who began having increasing cough, congestion and increasing shortness of breath and was sent to the hospital from the office and went to the Emergency Room where she was found to be hypoxic and had positive influenza noted on evaluation. Due to severity of illness, she was admitted for pulmonary toilet. During evaluation, she was also discovered to have most likely community-acquired pneumonia secondary to her COPD and influenza infection. She was started on IV antibiotics. The patient continued to be hypoxic, mainly requiring intubation, but did improve and was given IV steroids and oxygen support. She improved to the point where she was able to tolerate 4 liters nasal cannula. She did increase ____ liters with ambulation, but was now feeling much better and plans to discharge to home with oxygen were made. The patient's blood sugars improved after some high blood sugars on IV steroids. But on p.o. steroids, the patient's blood sugars ____. DISCHARGE MEDICATIONS: The patient's discharge medications are as follows: Vantin 200 mg b.i.d. for 1 week, doxycycline 100 mg b.i.d. for 1 week, Flonase 2 sprays each nostril daily for 1 month, Advair 250/50 one puff b.i.d., guaifenesin 600 mg b.i.d., Levemir 15 units at bedtime, ipratropium bromide and albuterol in the form of DuoNeb nebulizer treatments q. 6 hours, Singulair 10 mg daily, prednisone taper starting at 60 mg daily, tapering by 10 mg every other day until off, albuterol metered dose inhaler 2 puffs q. 4 hours p.r.n. when outside of home, atorvastatin 10 mg daily, Nexium 40 mg daily, estrogen 1 mg daily, Nupur 180 mg daily, hydrochlorothiazide 12.5 mg daily, metformin 750 mg at bedtime. The patient will be followed by Dr. Hawley in [address] Gonzalez in 2 weeks. Home health will be sent out for management of ____ medications and for respiratory evaluation and treatment and set up of oxygen and nebulizer treatments. ALBERTO RAMIREZ MD DR: DENNY/paresh JOB#: [id number] / [id number]
== END 2016-04-15 16:33 | disposition home health service (06) | DRG 193 ==
LOC: ER 11:43 → ED HOLD 14:41 → 5 SOUTH 18:01
PROVIDERS: ADMIT Family Medicine; ATTEND Family Medicine
DX: J10.1 Influenza due to other identified influenza virus with other respiratory manifestations (principal); J96.01 Acute respiratory failure with hypoxia; J44.1 Chronic obstructive pulmonary disease with (acute) exacerbation; J44.0 Chronic obstructive pulmonary disease with (acute) lower respiratory infection; J18.9 Pneumonia, unspecified organism; I10 Essential (primary) hypertension; E78.5 Hyperlipidemia, unspecified; E11.9 Type 2 diabetes mellitus without complications; J45.909 Unspecified asthma, uncomplicated; K21.9 Gastro-esophageal reflux disease without esophagitis; F17.210 Nicotine dependence, cigarettes, uncomplicated; Z82.49 Family history of ischemic heart disease and other diseases of the circulatory system; Z82.5 Family history of asthma and other chronic lower respiratory diseases; Z83.3 Family history of diabetes mellitus; Z90.49 Acquired absence of other specified parts of digestive tract
CPT/HCPCS: 36415; 71010; 71275; 80048; 80053; 82947; 83605; 83880; 85007; 85027; 87040; 94250; 94620; 94640; 94760; 96361; 96374; J0696; J1650; J1815; J2920; J2930; J3490; J7030; J7512; J7620; Q9967; 99285-25

== ENCOUNTER → 2016-05-06 | Outpatient (CLI) | payer OTHER ==
[2016-04-15 10:39] VITALS: BP 122/63
[~2016-05-06] MED LIST changes: +CEFP100T PO; +DOXY100T PO; +ESOM40CA PO; +ESTR1TAB15 PO; +FEXO180T81 PO; +FLUT16SP NS; +FLUT1DIS3 IH; +GUAI600T38 PO; +INSU100I27 SQ; +IPRA3AMP NEB; +METF750T2 PO; +MONT10TA9 PO; +PRED-220 PO
[2016-05-06 16:15] LABS: ALBUMIN 3.3 g/dL (3.4-5.0); ALBUMIN/GLOBULIN RATIO 0.9 (1.0-1.7); CREATININE 1.1 mg/dL (0.6-1.0); GFR 51.4; POTASSIUM 3.6 mmol/L (3.5-5.1); TOTAL BILIRUBIN 0.2 mg/dL (0.2-1.0); TOTAL PROTEIN 6.9 g/dL (6.4-8.2)
== END | disposition home or self-care (01) ==
LOC: LAB 15:34
PROVIDERS: ATTEND Family Medicine
DX: I10 Essential (primary) hypertension (principal); E11.9 Type 2 diabetes mellitus without complications; Z68.41 Body mass index [BMI] 40.0-44.9, adult
CPT/HCPCS: 36415; 80053; 83036; 84443

== ENCOUNTER → 2016-07-18 | Outpatient (CLI) | payer OTHER ==
--- NOTE | 2016-07-18 10:06 | RAD ---
Indication follow-up pulmonary infiltrates and nodules. Noncontrast imaging through the chest was performed and is compared to an examination 04/11/2016. Imaging through the upper abdomen appears unremarkable. The thoracic aorta is grossly unremarkable. There is no significant hilar or mediastinal adenopathy. There has been substantial improvement in the appearance of the chest relative to the previous exam. Groundglass opacities seen previously have resolved. Similarly nodular opacities seen previously have resolved. There is a tiny 1 to 2 mm nodule in the right upper lobe, image 30 series 2, peripherally. This is likely incidental but could be followed up along the lines of the Fleischner criteria IMPRESSION: No acute finding. Substantial improvement relative to the previous study. Groundglass and nodular opacities seen previously have resolved. Minute pulmonary nodule in the right upper lobe measuring approximately 1 to 2 mm. Nodules detected incidentally at non-screening CT Nodule size (mm) less than or equal to 4 Low Risk patients- no follow-up needed High Risk patients- follow-up at 12 months and if no change, no further imaging needed. Nodule size > 4-6 mm Low risk patients- follow- up at 12 months and if no change, no further imaging needed High risk patients- initial follow-up CT at 6-12 months and then at 18-24 months if no change. Nodule Size > 6-8 mm Low risk patients- initial follow-up CT at 6-12 months and then at 18-24 months if no change. High risk patients- initial follow- up CT at 3-6 months and then at 9-12 months if no change, Nodule Size >8 mm Either low or high risk patients: Follow-up CT at around 3, 9 and [address], PET, and/or biopsy Note: newly detected indeterminate nodule in person 35 years of age or older. Low risk patients- minimal or absent history of smoking and/or other known risk factors. High risk patients- history of smoking or of other known risk factors. PQRS Compliance Statement: One or more of the following individualized dose reduction techniques were utilized for this examination: 1. Automated exposure control 2. Adjustment of the mA and/or kV according to patient size 3. Use of iterative reconstruction technique
== END | disposition home or self-care (01) ==
LOC: CT 09:17
PROVIDERS: ATTEND Internal Medicine Pulmonary Disease
DX: R91.8 Other nonspecific abnormal finding of lung field (principal); R91.1 Solitary pulmonary nodule
CPT/HCPCS: 71250

== ENCOUNTER → 2016-08-08 | Outpatient (CLI) | payer OTHER ==
[~2016-08-08] MED LIST changes: -GUAI600T38 PO; +GUAI600T47 PO
--- NOTE | 2016-08-08 16:46 | RAD ---
Chest, 2 views, 08/08/2016: History: Cough, bronchitis Comparison is made to a study from 04/07/2016. The heart size and pulmonary vascularity are normal. There is tortuosity of the aortic arch. The heart is within normal limits in size. There are prominent epicardial fat pads at the cardiophrenic angle level is bilaterally. Mild streaky atelectasis/infiltrate has developed in the lingula on the left. There is no evidence of pleural fluid. Mild spurring is present in the spine. IMPRESSION: Mild streaky atelectasis/infiltrate in the lingula.
== END | disposition home or self-care (01) ==
LOC: RAD 13:58
PROVIDERS: ATTEND Family Medicine
DX: J44.0 Chronic obstructive pulmonary disease with (acute) lower respiratory infection (principal); R91.1 Solitary pulmonary nodule; J98.11 Atelectasis
CPT/HCPCS: 71020

== ENCOUNTER → 2017-01-05 | Outpatient (CLI) | payer OTHER ==
--- NOTE | 2017-01-06 16:24 | SLEEP ---
DATE OF STUDY: 01/05/2017 ATTENDING PHYSICIAN: Dr. Sid Ibarra. The patient is 56 years old who weighs 235 pounds with a BMI of 45. The patient's Ryan score was 9. The patient underwent split night study at [facility]. During the night study, the patient spent 434 minutes in bed and slept for 373 minutes with a sleep efficiency of 86%. Sleep latency was 8 minutes with a REM latency of 86 minutes. Overall, sleep architecture showed increased stage I sleep, mildly increased stage II sleep, normal slow wave and reduced REM sleep. During the initial diagnostic portion of the study, the patient slept for 145 minutes. During this time, there were 141 obstructive apneas, 6 mixed apneas and no central apneas. There were 78 hypopneas. The patient's apnea hypopnea index was 93 per hour, supine index 117 per hour and REM index was 6 per hour. EKG monitoring revealed normal sinus rhythm, average heart rate was 73 beats per minute, no sustained arrhythmias were observed. Review of nocturnal oximetry study during the diagnostic portion revealed a mean oxygen saturation of 93% with the lowest of 70%. A 76% of time oxygen saturation remained between 80% and 89% and 16% of time between 70 and 79%. PLMS were not seen. The patient met the criteria for CPAP initiation. It was started at 5 cm water and titrated up to 20 cm of water. At the final pressure, the patient slept for 58 minutes. The patient had supine as well as REM sleep. The patient's AHI was reduced to only 4 per hour. Few central apneas were observed due to mask leak. The patient's oxygen saturations remained in the mid 80s with the lowest of 83% when patient was on supine REM sleep at the final pressure. However, when patient came out of REM sleep, oxygen saturation remained above 88%. I would recommend the patient should have a nocturnal oximetry study as an outpatient to assess the need for supplemental oxygen. The patient used a medium size full face mask. IMPRESSION: 1. Severe sleep apnea-hypopnea syndrome at an AHI of 93 per hour. 2. Nocturnal hypoxia secondary to combination of sleep apnea and suspected obesity hypoventilation syndrome. Significantly improved while on therapeutic CPAP, but may need nocturnal oximetry study as an outpatient while on therapeutic CPAP to assess the need for supplemental oxygen. 3. No clinically significant periodic limb movements in sleep. RECOMMENDATIONS: 1. CPAP at 20 cm of water completely eliminated the patient's sleep apnea and should be used on a nightly basis. 2. Home nocturnal oximetry study while on therapeutic CPAP pressure of 20 cm of water to assess the need for supplemental oxygen. 3. Follow up in 4-6 weeks to assess compliance with CPAP and to document clinical improvement. 4. Weight loss is strongly advised. 5. Avoid SALICYLIC ACID BLENDER depressants. 6. Caution regarding driving until symptoms of sleep apnea resolve with the use of CPAP. MERARI GRIJALVA MD DR: OSEI/paresh JOB#: [id number] / [id number] SID Herman MD MTDD
== END | disposition home or self-care (01) ==
LOC: SLPLAB 18:33
PROVIDERS: ATTEND Family Medicine
DX: R53.83 Other fatigue (principal); G47.30 Sleep apnea, unspecified
CPT/HCPCS: 95810

== ENCOUNTER → 2017-02-20 | Day surgery (SDC) | payer OTHER ==
[~2017-02-20] MED LIST changes: -ATOR10TA60 PO; -CEFP100T PO; -DOXY100T PO; -ESOM40CA PO; -ESTR1TAB15 PO; -FEXO180T81 PO; -FLUT16SP NS; -FLUT1DIS3 IH; -GUAI600T47 PO; -HYDR12.53 PO; +HYDROmorphone 2 MG/ML VIAL IV; -INSU100I27 SQ; -IPRA3AMP NEB; +LIDOCAINE 1% PF 2 ML VIAL. ID; +LIDOCAINE 2% PF Vial for OR 5 ML VIAL.; -METF500T4 PO; -METF750T2 PO; -MONT10TA9 PO; +MORPHINE SULFATE 2 MG/ML DISP.SYRIN. IV; +ONDANSETRON PF 4 MG/2 ML VIAL. IV; -PRED-220 PO; -PROAIR HFA8.5 GM INH; +PROCHLORPERAZINE 10 MG/2 ML VIAL. IV; +PROPOFOL 40 ML IV; +fentaNYL PF VIAL 100 MCG/2 ML VIAL IV
[2017-02-20] MEDS: IV RINGERS,LACTATED 1000ML 1,000 ML IV (07:57)
[2017-02-20 08:00] LABS: POC GLUCOSE 164 mg/dL (70-99)
== END | disposition home or self-care (01) ==
LOC: ENDOS 07:26
DX: D12.4 Benign neoplasm of descending colon (principal); K63.5 Polyp of colon; K64.0 First degree hemorrhoids; K21.0 Gastro-esophageal reflux disease with esophagitis; J44.9 Chronic obstructive pulmonary disease, unspecified; E78.00 Pure hypercholesterolemia, unspecified; E11.9 Type 2 diabetes mellitus without complications; I10 Essential (primary) hypertension; M15.9 Polyosteoarthritis, unspecified; Z83.3 Family history of diabetes mellitus; Z82.49 Family history of ischemic heart disease and other diseases of the circulatory system; F17.200 Nicotine dependence, unspecified, uncomplicated; Z90.49 Acquired absence of other specified parts of digestive tract; Z90.710 Acquired absence of both cervix and uterus
CPT/HCPCS: 45380; 82962; 88305; J2704

== ENCOUNTER → 2017-03-13 | Outpatient (CLI) | payer OTHER | END | disposition home or self-care (01) | LOC: RAD 16:51 | DX: M79.642 Pain in left hand (principal) | CPT/HCPCS: 73130 ==

== ENCOUNTER 2017-05-06 20:26 | Emergency (ER) | payer OTHER ==
[2017-05-06 22:48] LABS: BILIRUBIN,URINE NEGATIVE (NEG); CLARITY,URINE TURBID; COLOR,URINE YELLOW; GLUCOSE,URINE 250 mg/dL (NEG); NITRITE,URINE NEGATIVE (NEG); PH,URINE 5.5; PROTEIN,URINE NEGATIVE (NEG-TRACE); UROBILINOGEN,URINE 0.2 mg/dL (0.2 mg/dL)
[2017-05-06] MEDS: IV NORMAL SALINE 1000ML BAG 1,000 ML IV (22:57)
[2017-05-06 22:58] LABS: ADD MAN DIFF? NO
[2017-05-06 23:00] LABS: BASO % 0 % (0-3); EOS # 0.1 x10^3/uL (0.0-0.7); EOS % 1 % (0-3); HEMOGLOBIN 13.7 g/dL (12.0-15.5); LYMPH # 3.6 x10^3/uL (1.0-4.8); LYMPH % 25 % (24-48); MEAN CORPUSCULAR HEMOGLOBIN 24 pg (25-35); MEAN CORPUSCULAR HGB CONC 33 g/dL (31-37); MEAN CORPUSCULAR VOLUME 72 fL (79-100); MONO # 0.8 x10^3/uL (0.0-1.1); MONO % 6 % (0-9); NEUT % 69 % (31-73); PLATELET COUNT 309 x10^3/uL (140-400); RED BLOOD COUNT 5.68 x10^6/uL (3.50-5.40); RED CELL DISTRIBUTION WIDTH 20.5 % (11.5-14.5); WHITE BLOOD COUNT 14.5 x10^3/uL (4.0-11.0)
[2017-05-06 23:09] LABS: ANION GAP 11 (6-14); BLOOD UREA NITROGEN 13 mg/dL (7-20); BUN/CREATININE RATIO 14 (6-20); CALCIUM 9.9 mg/dL (8.5-10.1); CARBON DIOXIDE 26 mmol/L (21-32); CHLORIDE 98 mmol/L (98-107); CREATININE 0.9 mg/dL (0.6-1.0); GFR 64.5; GLUCOSE 165 mg/dL (70-99); POTASSIUM 3.4 mmol/L (3.5-5.1); SODIUM 135 mmol/L (136-145)
[2017-05-06 23:14] LABS: AMORPHOUS SEDIMENT,UR PRESENT /HPF; BACTERIA,URINE FEW /HPF (0-FEW); RBC,URINE OCC /HPF (0-2); SQUAMOUS EPITHELIAL CELL,UR MANY /LPF
[2017-05-06 23:16] LABS: ALBUMIN 3.6 g/dL (3.4-5.0); ALBUMIN/GLOBULIN RATIO 0.9 (1.0-1.7); ALK PHOS 113 U/L (46-116); ALT (SGPT) 22 U/L (14-59); AST (SGOT) 11 U/L (15-37); LIPASE 64 U/L (73-393); TOTAL BILIRUBIN 0.3 mg/dL (0.2-1.0); TOTAL PROTEIN 7.6 g/dL (6.4-8.2)
[2017-05-06] MEDS: ONDANSETRON PF 4 MG/2 ML VIAL. IV (23:18)
[2017-05-06] MEDS: KETOROLAC 30 MG/ML INJ. IV (23:18)
[2017-05-06 23:30] LABS: PLT ESTIMATE ADEQUATE (ADEQUATE)
[2017-05-06] MEDS ORDERED: CONTRAST GIVEN MC (23:30)
[2017-05-06 23:31] LABS: ANISOCYTOSIS MOD; HYPOCHROMIA SLIGHT; MICROCYTOSIS SLIGHT; POIKILOCYTOSIS SLIGHT
[2017-05-06 23:32] LABS: OVALOCYTES FEW
[2017-05-06] MEDS: IOHEXOL 300 MG/ML 100ML VIAL. IV (23:39)
== END 2017-05-07 02:15 | disposition home or self-care (01) ==
LOC: ER 05-07 02:15
DX: K52.9 Noninfective gastroenteritis and colitis, unspecified (principal); D72.829 Elevated white blood cell count, unspecified; E10.65 Type 1 diabetes mellitus with hyperglycemia; E78.00 Pure hypercholesterolemia, unspecified; J45.909 Unspecified asthma, uncomplicated; Z90.49 Acquired absence of other specified parts of digestive tract; Z90.710 Acquired absence of both cervix and uterus
CPT/HCPCS: 36415; 74177; 80053; 81001; 83690; 85025; 96361; 96374; 96375; 99285-25; J1885; J2405; J7030; Q9967

== ENCOUNTER 2017-05-29 09:41 | Day surgery (SDC) | payer OTHER ==
[~2017-05-29 09:41] MED LIST changes: -LIDOCAINE 2% PF Vial for OR 5 ML VIAL.; -MORPHINE SULFATE 2 MG/ML DISP.SYRIN. IV; +MORPHINE SULFATE 4 MG/ML DISP.SYRIN. IV; -PROPOFOL 40 ML IV
[2017-05-29] MEDS: IV RINGERS,LACTATED 1000ML 1,000 ML IV (10:28)
[2017-05-29] MEDS ORDERED: DEXAMETHASONE SOD PHOS 20 MG/5 ML VIAL. (12:02)
[2017-05-29] MEDS ORDERED: ONDANSETRON PF 4 MG/2 ML VIAL. (12:02)
[2017-05-29] MEDS ORDERED: fentaNYL PF VIAL 100 MCG/2 ML VIAL (12:02)
[2017-05-29] MEDS ORDERED: PROPOFOL 20 ML IV ×2 (12:02→12:31)
[2017-05-29] MEDS ORDERED: LIDOCAINE 1% PF 5 ML VIAL. (12:02)
[2017-05-29 12:59] LABS: POC GLUCOSE 126 mg/dL (70-99)
[2017-05-29] MEDS ORDERED: HYDROcodone/APAP 5/325MG 1 TAB TABLET PO (13:00)
[2017-05-29] MEDS: HYDROcodone/APAP 5/325MG 1 TAB TABLET PO (13:05)
[2017-05-29] MEDS: LIDOCAINE 1% PF 30 ML VIAL. (13:12)
== END 2017-05-29 13:40 | disposition home or self-care (01) ==
LOC: SURG 09:41
DX: M65.352 Trigger finger, left little finger (principal); Z90.49 Acquired absence of other specified parts of digestive tract; Z90.710 Acquired absence of both cervix and uterus; E78.00 Pure hypercholesterolemia, unspecified; E10.65 Type 1 diabetes mellitus with hyperglycemia; Z79.4 Long term (current) use of insulin; J45.909 Unspecified asthma, uncomplicated; Z79.899 Other long term (current) drug therapy; Z98.890 Other specified postprocedural states
CPT/HCPCS: 26055; 82962; J1100; J2405; J2704; J3010

== ENCOUNTER → 2017-07-07 | Outpatient (CLI) | payer OTHER ==
[2017-07-07 09:18] LABS: ALBUMIN 3.6 g/dL (3.4-5.0); ALBUMIN/GLOBULIN RATIO 0.9 (1.0-1.7); ALK PHOS 109 U/L (46-116); ALT (SGPT) 20 U/L (14-59); ANION GAP 12 (6-14); AST (SGOT) 9 U/L (15-37); BLOOD UREA NITROGEN 17 mg/dL (7-20); BUN/CREATININE RATIO 17 (6-20); CALCIUM 9.5 mg/dL (8.5-10.1); CARBON DIOXIDE 28 mmol/L (21-32); CHLORIDE 100 mmol/L (98-107); GFR 57.1; GLUCOSE 176 mg/dL (70-99); POTASSIUM 3.5 mmol/L (3.5-5.1); SODIUM 140 mmol/L (136-145); TOTAL BILIRUBIN 0.4 mg/dL (0.2-1.0); TOTAL PROTEIN 7.4 g/dL (6.4-8.2)
[2017-07-08 01:13] LABS: HEMOGLOBIN A1C 7.2 % (4.8-5.6)
== END | disposition home or self-care (01) ==
LOC: LAB 07:21
DX: E11.9 Type 2 diabetes mellitus without complications (principal); I10 Essential (primary) hypertension; E78.00 Pure hypercholesterolemia, unspecified; E78.5 Hyperlipidemia, unspecified
CPT/HCPCS: 36415; 80053; 83036

== ENCOUNTER → 2017-08-19 | Outpatient (CLI) | payer OTHER | END | disposition home or self-care (01) | LOC: CT 15:57 | DX: R91.8 Other nonspecific abnormal finding of lung field (principal); I10 Essential (primary) hypertension; E78.2 Mixed hyperlipidemia; E11.9 Type 2 diabetes mellitus without complications; J44.9 Chronic obstructive pulmonary disease, unspecified | CPT/HCPCS: 71250 ==

== ENCOUNTER → 2017-11-04 | Day surgery (SDC) | payer OTHER ==
[~2017-11-04] MED LIST changes: +ATOR10TA60 PO; +BALANCED SALT IRRIG OPHTH SOLN 15 ML BOTTLE. ONE; +CEFP100T PO; +CHONDROIT-SOD-HYALURONATE KIT. ONE; +CHONDROITIN-SOD-HYALURONATE 0.5 ML DISP.SYRIN. ONE; +CIPROFLOXACIN 0.3% OPHTH SOLUTION 5ML BOTTLE. OS ONE; +COLE1TAB2 PO; +DOXY100T PO; +ESOM40CA PO; +ESTR1TAB15 PO; +EXEN2VIA SQ; +FEXO180T81 PO; +FLUT16SP NS; +FLUT1DIS3 IH; +GABA-586 PO; +GUAI600T47 PO; +HYDR-971 PO; +HYDR12.53 PO; -HYDROmorphone 2 MG/ML VIAL IV; +HYDROmorphone 2 MG/ML VIAL IV PRN; +IBUP-1060 PO; +INSU100I27 SQ; +INSU100V13 SQ; +INSU300I SQ; +IPRA3AMP29 NEB; +IV RINGERS,LACTATED 1000ML 1,000 ML IV SCH; -LIDOCAINE 1% PF 2 ML VIAL. ID; +LIDOCAINE 1% PF 2 ML VIAL. ID PRN; +LIDOCAINE 1% PF 2 ML VIAL. ONE; +LIDOCAINE 2% JELLY 6ML IN APPLICATOR. MM SCH; +LIDOCAINE 2% JELLY 6ML IN APPLICATOR. ONE; +METF500T16 PO; +METF750T2 PO; +MONT10TA9 PO; +MORPHINE SULFATE 2 MG/ML VIAL. IV PRN; -MORPHINE SULFATE 4 MG/ML DISP.SYRIN. IV; +NEO/POLYMYX/DEXAMETH OPHTH OINTMENT 3.5GM TUBE. ONE; +OMEP40CA5 PO; -ONDANSETRON PF 4 MG/2 ML VIAL. IV; +ONDANSETRON PF 4 MG/2 ML VIAL. IV PRN; +PRED-220 PO; +PROAIR HFA8.5 GM INH; -PROCHLORPERAZINE 10 MG/2 ML VIAL. IV; +PROCHLORPERAZINE 10 MG/2 ML VIAL. IV PRN; +PROPARACAINE 0.5% OPHTH SOLUTION 15ML BOTTLE. OS ONE; -fentaNYL PF VIAL 100 MCG/2 ML VIAL IV; +fentaNYL PF VIAL 100 MCG/2 ML VIAL IV PRN
[2017-11-04] MEDS: PHENYLEPHRINE 10% OPHTH SOLUTION 5ML BOTTLE. OS SCH ×3 (10:45→10:56)
[2017-11-04] MEDS: CYCLOPENTOLATE 1% OPTH SOLUTION 2ML BOTTLE. OS SCH ×3 (10:45→10:57)
[2017-11-04 13:25] VITALS: BP 120/69
--- NOTE | 2017-11-04 13:27 | OP ---
DATE OF SURGERY: 11/04/2017 PREOPERATIVE DIAGNOSIS: Cataract of the left eye. PROCEDURE: Phacoemulsification with posterior chamber intraocular lens implantation of the left eye. INDICATION: Painless progressive visual loss with a visually significant cataract and difficulty reading. SURGEON: Zuleima Gay MD ANESTHESIA: Topical with monitored anesthesia care. DESCRIPTION OF PROCEDURE: The left eye was prepped with Betadine in the usual sterile fashion and draped. A paracentesis was performed followed by instillation of phenylephrine admixed with lidocaine in a premixed solution. Viscoelastic was injected in the anterior chamber and a temporal clear corneal incision was made. A capsulorrhexis was then performed followed by hydrodissection and prolapse of the nucleus to the pupillary plane. Viscoelastic was injected both anterior and posterior of the nucleus and it was removed in a modified stop and chop fashion. The I/A handpiece was used to remove the remainder of the cortex. Viscoelastic was injected in the capsular bag and an Arnold model [id number] with a power of 23.5 diopters was placed into the capsular bag. Balanced salt solution was used to hydrate the corneal wounds and once no leak was noted, Maxitrol was placed on the eye and the eye shielded and the patient was sent to the recovery room uneventfully. ZULEIMA GAY MD DR: GERRY/nts JOB#: [id number] / [id number]
== END | disposition home or self-care (01) ==
LOC: SURG 10:07
PROVIDERS: ATTEND Ophthalmology
DX: H26.9 Unspecified cataract (principal); E11.9 Type 2 diabetes mellitus without complications; Z79.899 Other long term (current) drug therapy; Z79.84 Long term (current) use of oral hypoglycemic drugs
CPT/HCPCS: 66984; 82962; C1780; J0171; J0690; J1580

== ENCOUNTER → 2017-11-04 | Outpatient (CLI) | payer OTHER ==
[2017-05-29 13:08] VITALS: BP 107/59
[~2017-11-04] MED LIST changes: -BALANCED SALT IRRIG OPHTH SOLN 15 ML BOTTLE. ONE; -CHONDROIT-SOD-HYALURONATE KIT. ONE; -CHONDROITIN-SOD-HYALURONATE 0.5 ML DISP.SYRIN. ONE; -CIPROFLOXACIN 0.3% OPHTH SOLUTION 5ML BOTTLE. OS ONE; -HYDROmorphone 2 MG/ML VIAL IV PRN; -IV RINGERS,LACTATED 1000ML 1,000 ML IV SCH; -LIDOCAINE 1% PF 2 ML VIAL. ID PRN; -LIDOCAINE 1% PF 2 ML VIAL. ONE; -LIDOCAINE 2% JELLY 6ML IN APPLICATOR. MM SCH; -LIDOCAINE 2% JELLY 6ML IN APPLICATOR. ONE; -MORPHINE SULFATE 2 MG/ML VIAL. IV PRN; -NEO/POLYMYX/DEXAMETH OPHTH OINTMENT 3.5GM TUBE. ONE; -ONDANSETRON PF 4 MG/2 ML VIAL. IV PRN; -PROCHLORPERAZINE 10 MG/2 ML VIAL. IV PRN; -PROPARACAINE 0.5% OPHTH SOLUTION 15ML BOTTLE. OS ONE; -fentaNYL PF VIAL 100 MCG/2 ML VIAL IV PRN
[2017-11-04 09:12] LABS: BASO # 0.1 x10^3/uL (0.0-0.2); BASO % 1 % (0-3); EOS # 0.2 x10^3/uL (0.0-0.7); EOS % 2 % (0-3); HEMATOCRIT 40.9 % (36.0-47.0); HEMOGLOBIN 13.7 g/dL (12.0-15.5); LYMPH # 3.6 x10^3/uL (1.0-4.8); LYMPH % 32 % (24-48); MEAN CORPUSCULAR HEMOGLOBIN 25 pg (25-35); MEAN CORPUSCULAR HGB CONC 33 g/dL (31-37); MEAN CORPUSCULAR VOLUME 74 fL (79-100); MONO # 0.7 x10^3/uL (0.0-1.1); MONO % 6 % (0-9); NEUT # 6.7 x10^3uL (1.8-7.7); NEUT % 59 % (31-73); PLATELET COUNT 316 x10^3/uL (140-400); RED BLOOD COUNT 5.55 x10^6/uL (3.50-5.40); RED CELL DISTRIBUTION WIDTH 20.1 % (11.5-14.5); WHITE BLOOD COUNT 11.2 x10^3/uL (4.0-11.0)
[2017-11-04 09:33] LABS: ALBUMIN 3.6 g/dL (3.4-5.0); ALBUMIN/GLOBULIN RATIO 0.9 (1.0-1.7); CREATININE 1.1 mg/dL (0.6-1.0); GFR 51.2; POTASSIUM 3.6 mmol/L (3.5-5.1); TOTAL BILIRUBIN 0.4 mg/dL (0.2-1.0); TOTAL PROTEIN 7.7 g/dL (6.4-8.2)
[2017-11-04 09:39] LABS: CHOLESTEROL/HDL RATIO 5.6
[2017-11-04 11:32] LABS: PLT ESTIMATE ADEQUATE (ADEQUATE)
[2017-11-04 11:33] LABS: ANISOCYTOSIS SLIGHT
[2017-11-05 01:12] LABS: HEMOGLOBIN A1C 6.7 % (4.8-5.6)
== END | disposition home or self-care (01) ==
LOC: LAB 08:20
PROVIDERS: ATTEND Family Medicine
DX: E78.2 Mixed hyperlipidemia (principal); I10 Essential (primary) hypertension; E11.9 Type 2 diabetes mellitus without complications; E78.00 Pure hypercholesterolemia, unspecified; J44.9 Chronic obstructive pulmonary disease, unspecified; K21.9 Gastro-esophageal reflux disease without esophagitis; Z87.891 Personal history of nicotine dependence; Z79.4 Long term (current) use of insulin; Z90.49 Acquired absence of other specified parts of digestive tract; Z90.710 Acquired absence of both cervix and uterus; Z82.49 Family history of ischemic heart disease and other diseases of the circulatory system; Z83.3 Family history of diabetes mellitus; Z82.5 Family history of asthma and other chronic lower respiratory diseases
CPT/HCPCS: 36415; 80053; 80061; 82043; 83036; 85025

== ENCOUNTER → 2017-11-11 | Day surgery (SDC) | payer OTHER ==
[~2017-11-11] MED LIST changes: +BALANCED SALT IRRIG OPHTH SOLN 15 ML BOTTLE. ONE; +CHONDROIT-SOD-HYALURONATE KIT. ONE; +CHONDROITIN-SOD-HYALURONATE 0.5 ML DISP.SYRIN. ONE; +CIPROFLOXACIN 0.3% OPHTH SOLUTION 5ML BOTTLE. OD ONE; +HYDROmorphone 2 MG/ML VIAL IV PRN; +IV RINGERS,LACTATED 1000ML 1,000 ML IV SCH; +LIDOCAINE 1% PF 2 ML VIAL. ID PRN; +LIDOCAINE 1% PF 2 ML VIAL. ONE; +LIDOCAINE 2% JELLY 6ML IN APPLICATOR. MM SCH; +LIDOCAINE 2% JELLY 6ML IN APPLICATOR. ONE; +MIDAZOLAM HCL/PF 2 MG/2 ML VIAL. ONE; +MORPHINE SULFATE 2 MG/ML VIAL. IV PRN; +NEO/POLYMYX/DEXAMETH OPHTH OINTMENT 3.5GM TUBE. ONE; +ONDANSETRON PF 4 MG/2 ML VIAL. IV PRN; +PROCHLORPERAZINE 10 MG/2 ML VIAL. IV PRN; +PROPARACAINE 0.5% OPHTH SOLUTION 15ML BOTTLE. OD ONE; +fentaNYL PF VIAL 100 MCG/2 ML VIAL IV PRN
[2017-11-11] MEDS: PHENYLEPHRINE 10% OPHTH SOLUTION 5ML BOTTLE. OD SCH ×3 (10:39→10:54)
[2017-11-11] MEDS: CYCLOPENTOLATE 1% OPTH SOLUTION 2ML BOTTLE. OD SCH ×3 (10:39→10:54)
--- NOTE | 2017-11-11 12:39 | OP ---
DATE OF SURGERY: 11/11/2017 PREOPERATIVE DIAGNOSIS: Cataract of the right eye. PROCEDURE: Phacoemulsification with posterior chamber intraocular lens implantation of the right eye. INDICATION: Painless progressive visual loss and visually significant cataract and difficulty reading. SURGEON: Zuleima Gay MD ANESTHESIA: Topical with monitored anesthesia care. DESCRIPTION OF PROCEDURE: The right eye was prepped with Betadine in the usual sterile fashion and draped. A paracentesis was performed followed by instillation of a mixture of phenylephrine admixed with lidocaine preservative-free to maintain dilation and achieve anesthesia. Viscoelastic was injected in the anterior chamber and a temporal clear corneal incision was made. A capsulorrhexis was performed followed by hydrodissection and prolapse of the nucleus to the pupillary plane. The nucleus was evacuated with the phacoemulsification handpiece and the I/A handpiece was used to remove the remainder of the cortex. Viscoelastic was injected in the capsular bag and an Arnold model [id number] with a power of 23.0 diopters was placed into the capsular bag. Balanced salt solution was used to hydrate the corneal wounds and the viscoelastic evacuated with the I/A handpiece. Once no leak was noted, Maxitrol was placed on the eye and the eye shielded and the patient was sent to the recovery room uneventfully. ZULEIMA GAY MD DR: GERRY/paresh JOB#: [id number] / [id number]
[2017-11-11 12:40] VITALS: BP 143/65
== END | disposition home or self-care (01) ==
LOC: SURG 10:01
PROVIDERS: ATTEND Ophthalmology
DX: H25.13 Age-related nuclear cataract, bilateral (principal); I10 Essential (primary) hypertension; E78.5 Hyperlipidemia, unspecified; M19.90 Unspecified osteoarthritis, unspecified site; E11.9 Type 2 diabetes mellitus without complications; J45.909 Unspecified asthma, uncomplicated; F17.200 Nicotine dependence, unspecified, uncomplicated; Z72.89 Other problems related to lifestyle; Z79.01 Long term (current) use of anticoagulants; Z79.899 Other long term (current) drug therapy; Z79.4 Long term (current) use of insulin; Z79.2 Long term (current) use of antibiotics
CPT/HCPCS: 66984; C1780; J0171; J0690; J1580; J2250

== ENCOUNTER → 2018-05-18 | Outpatient (CLI) | payer OTHER ==
[2017-11-11 12:40] VITALS: BP 143/65
[~2018-05-18] MED LIST changes: +ALBU2.5V8 INH; -BALANCED SALT IRRIG OPHTH SOLN 15 ML BOTTLE. ONE; -CHONDROIT-SOD-HYALURONATE KIT. ONE; -CHONDROITIN-SOD-HYALURONATE 0.5 ML DISP.SYRIN. ONE; -CIPROFLOXACIN 0.3% OPHTH SOLUTION 5ML BOTTLE. OD ONE; -GABA-586 PO; +GABA300C18 PO; +HYDR-3164 PO; -HYDR-971 PO; -HYDR12.53 PO; +HYDR12.575 PO; -HYDROmorphone 2 MG/ML VIAL IV PRN; -IV RINGERS,LACTATED 1000ML 1,000 ML IV SCH; -LIDOCAINE 1% PF 2 ML VIAL. ID PRN; -LIDOCAINE 1% PF 2 ML VIAL. ONE; -LIDOCAINE 2% JELLY 6ML IN APPLICATOR. MM SCH; -LIDOCAINE 2% JELLY 6ML IN APPLICATOR. ONE; -MIDAZOLAM HCL/PF 2 MG/2 ML VIAL. ONE; -MORPHINE SULFATE 2 MG/ML VIAL. IV PRN; -NEO/POLYMYX/DEXAMETH OPHTH OINTMENT 3.5GM TUBE. ONE; -ONDANSETRON PF 4 MG/2 ML VIAL. IV PRN; -PROAIR HFA8.5 GM INH; -PROCHLORPERAZINE 10 MG/2 ML VIAL. IV PRN; -PROPARACAINE 0.5% OPHTH SOLUTION 15ML BOTTLE. OD ONE; -fentaNYL PF VIAL 100 MCG/2 ML VIAL IV PRN
--- NOTE | 2018-05-18 09:20 | RAD ---
Chest radiograph 05/18/2018 12:00 AM INDICATION: Cough and congestion for 5 days COMPARISON: August 08, 2016 TECHNIQUE: Frontal and lateral views of the chest are provided. FINDINGS: The cardiomediastinal silhouette is within normal limits. There are no pleural effusions. There is no pulmonary vascular congestion. There is no pneumothorax. The lungs are clear. No significant osseous abnormality is identified. IMPRESSION: No acute cardiopulmonary process. Electronically signed by: Ina Hassan MD (05/18/2018 9:17 AM) [id number]
== END | disposition home or self-care (01) ==
LOC: RAD 08:38
PROVIDERS: ATTEND Family Medicine
DX: R05 Cough (principal); R09.89 Other specified symptoms and signs involving the circulatory and respiratory systems
CPT/HCPCS: 71046

== ENCOUNTER → 2018-07-10 | Outpatient (CLI) | payer OTHER ==
[2017-11-11 12:40] VITALS: BP 143/65
--- NOTE | 2018-07-10 09:17 | RAD ---
Examination: CT chest without contrast HISTORY: History of lung nodule COMPARISON: 08/19/2017 Technique: Axial CT images of chest were performed without contrast. Coronal sagittal reformats are performed Exposure: One or more of the following individualized dose reduction techniques were utilized for this examination: 1. Automated exposure control 2. Adjustment of the mA and/or kV according to patient size 3. Use of iterative reconstruction technique FINDINGS: The visualized thyroid gland grossly appears unremarkable. The central airways are patent. The heart size grossly appears unremarkable. No radiologically significant mediastinal lymphadenopathy. 2 mm solid noncalcified pulmonary nodules identified in the right lower lobe of the lung, left upper lobe of the lung are unchanged compared to prior exam. No evidence of pleural effusion or pneumothorax. Diffuse decreased attenuation noted in the liver likely hepatic steatosis. The visualized spleen, adrenals grossly appears unremarkable. Moderate degenerative changes thoracic spine. IMPRESSION: 1. Unchanged 2 mm pulmonary nodules. 2. Coronary artery calcifications. 3. Hepatic steatosis. Electronically signed by: Shawn Oglesby MD (07/10/2018 9:14 AM) [facility]
== END | disposition home or self-care (01) ==
LOC: CT 07:43
PROVIDERS: ATTEND Internal Medicine Pulmonary Disease
DX: R91.8 Other nonspecific abnormal finding of lung field (principal); K76.0 Fatty (change of) liver, not elsewhere classified; I25.10 Atherosclerotic heart disease of native coronary artery without angina pectoris; M47.814 Spondylosis without myelopathy or radiculopathy, thoracic region
CPT/HCPCS: 71250

== ENCOUNTER → 2018-07-10 | Outpatient (CLI) | payer OTHER ==
[2017-11-11 12:40] VITALS: BP 143/65
--- NOTE | 2018-07-13 09:46 | RAD ---
DATE: 07/10/2018 EXAM: MAMMO TRISTA SCREENING BILATERAL HISTORY: Routine screening COMPARISON: 12/24/2011 This study was interpreted with the benefit of Computerized Aided Detection (CAD). Breast Density: SCATTERED The breast parenchyma shows scattered fibroglandular densities. Breast parenchyma level B. FINDINGS: 2-D and 3-D tomosynthesis imaging was performed in CC and MLO projections. No spiculated mass or architectural distortion is evident. No suspicious microcalcifications are seen. IMPRESSION: There is no mammographic evidence of malignancy in either breast. BI-RADS CATEGORY: 1 NEGATIVE RECOMMENDED FOLLOW-UP: 12M 12 MONTH FOLLOW-UP PQRS compliance statement: Patient information was entered into a reminder system with a target due date for the next mammogram. Mammography is a sensitive method for finding small breast cancers, but it does not detect them all and is not a substitute for careful clinical examination. A negative mammogram does not negate a clinically suspicious finding and should not result in delay in biopsying a clinically suspicious abnormality. "Our facility is accredited by the [employer] Mammography Program."
== END | disposition home or self-care (01) ==
LOC: MAMMO 07:37
PROVIDERS: ATTEND Family Medicine
DX: Z12.31 Encounter for screening mammogram for malignant neoplasm of breast (principal)
CPT/HCPCS: 77063; 77067

== ENCOUNTER → 2019-02-01 | Outpatient (CLI) | payer OTHER ==
[2017-11-11 12:40] VITALS: BP 143/65
[~2019-02-01] MED LIST changes: -METF750T2 PO; +METF750T39 PO; +MONT10TA49 PO; -MONT10TA9 PO; +OMEP40CA45 PO; -OMEP40CA5 PO
--- NOTE | 2019-02-02 17:57 | SLEEP ---
DATE OF STUDY: 02/01/2019 SLEEP STUDY ATTENDING PHYSICIAN: Sid Ibarra MD HISTORY OF PRESENT ILLNESS: The patient is 58 years old who weighs 227 pounds with a BMI of 43. The patient's Uvalde score was 10. The patient underwent split night study performed at [facility]. During the night study, the patient spent 425 minutes in bed and slept for 366 minutes with a sleep efficiency of 86%. Sleep latency was 4 minutes with a REM latency of 77 minutes. Sleep architecture showed increased stage 1 and stage 2 sleep, normal slow wave and reduced REM sleep. During the initial diagnostic portion of the study, the patient had 28 obstructive apneas, 13 mixed apneas, no central apneas and 87 hypopneas. The patient's AHI was 82 per hour, supine AHI 79 per hour. REM sleep was not seen during the diagnostic portion. EKG monitoring revealed mean heart rate of 77 beats per minute, no sustained arrhythmias observed. Nocturnal oximetry study revealed a mean oxygen saturation of 88% with the lowest of 76%. 92% of time oxygen saturation remained between 80% and 89%. No PLMS seen. The patient was started on CPAP after meeting the criteria. The pressure was initiated at 12 cm water as the patient was unable to use lower pressure. At the final pressure of 18 cm water, the patient slept for 115 minutes. The patient's AHI was reduced to 3 per hour and oxygen saturations remained above 88% with few spot desaturation in the high 80s. The patient had supine sleep and REM sleep. The patient used medium size full face mask. IMPRESSION: 1. Severe sleep apnea-hypopnea syndrome at an AHI of 82 per hour. 2. Nocturnal hypoxia secondary to obstructive sleep apnea and resolved with CPAP. 3. No clinically significant periodic limb movements. RECOMMENDATIONS: 1. CPAP at 18 cm water completely eliminated the patient's sleep apnea and should be used on a nightly basis. 2. Follow up in 4-6 weeks to assess compliance with CPAP and to document clinical improvement. 3. Weight loss is advised. 4. Avoid [employer] depressants. 5. Caution regarding driving until symptoms of sleep apnea have resolved with the use of CPAP. MERARI GRIJALVA MD DR: OSEI/paresh JOB#: [id number] / [id number] SID Herman MD
== END | disposition home or self-care (01) ==
LOC: RT 18:50
PROVIDERS: ATTEND Family Medicine
DX: G47.33 Obstructive sleep apnea (adult) (pediatric) (principal); G47.34 Idiopathic sleep related nonobstructive alveolar hypoventilation
CPT/HCPCS: 95810

== ENCOUNTER → 2019-07-27 | Outpatient (CLI) | payer OTHER ==
[2017-11-11 12:40] VITALS: BP 143/65
[2019-07-27 10:46] LABS: ALBUMIN 3.6 g/dL (3.4-5.0); CALCIUM 9.1 mg/dL (8.5-10.1); CREATININE 1.2 mg/dL (0.6-1.0); POTASSIUM 4.1 mmol/L (3.5-5.1); TOTAL BILIRUBIN 0.4 mg/dL (0.2-1.0); TOTAL PROTEIN 7.1 g/dL (6.4-8.2)
[2019-07-27 10:53] LABS: CHOLESTEROL/HDL RATIO 5.3
[2019-07-28 01:08] LABS: HEMOGLOBIN A1C 7.2 % (4.8-5.6)
== END ==
LOC: LAB 09:31
PROVIDERS: ATTEND Family Medicine
DX: E11.9 Type 2 diabetes mellitus without complications (principal); E78.2 Mixed hyperlipidemia
CPT/HCPCS: 36415; 80053; 80061; 83036

== ENCOUNTER → 2019-09-16 | Outpatient (CLI) | payer OTHER ==
[2017-11-11 12:40] VITALS: BP 143/65
[~2019-09-16] MED LIST changes: +ESTR-113 PO; -ESTR1TAB15 PO
--- NOTE | 2019-09-17 09:10 | RAD ---
EXAM: Chest CT with intravenous contrast. HISTORY: Pulmonary nodule follow-up. TECHNIQUE: Computed tomographic images of the chest were obtained without intravenous contrast. Multiplanar reformatting was performed. *One or more of the following individualized dose reduction techniques were utilized for this examination: 1. Automated exposure control. 2. Adjustment of the mA and/or kV according to patient size. 3. Use of iterative reconstruction technique. COMPARISON: 07/10/2018 and 08/19/2017. FINDINGS: The heart is normal in size. The aorta is normal in caliber. No pathologically enlarged mediastinal or hilar lymph node is seen. There is no pneumothorax or pleural effusion. There is stable lingular and medial right lower lobe scarring. There is bilateral posterior dependent and basilar atelectasis. There are few calcified granulomas. There is minimal emphysema. There is mild central canal wall thickening. There is a stable 4 mm pleural-based nodular opacity within the posterior medial right upper lobe. No new suspicious nodule is seen. IMPRESSION: 1. No acute pulmonary finding or new suspicious pulmonary nodule. There is a stable 4 mm pleural-based nodular opacity within the posterior medial right upper lobe. The greater than two-year course of stability and appearance favor benignity. There are few additional nodules which are calcified or partially calcified and consistent with healed granulomatous disease. 2. Stable lingular and right middle lobe pleural parenchymal scarring. 3. Stable minimal emphysema and central bronchial wall thickening. Electronically signed by: Farrah Lee MD (09/17/2019 9:07 AM) [id number]
== END ==
LOC: CT 16:39
PROVIDERS: ATTEND Internal Medicine Pulmonary Disease
DX: R91.8 Other nonspecific abnormal finding of lung field (principal); J43.9 Emphysema, unspecified; J98.4 Other disorders of lung
CPT/HCPCS: 71250

== ENCOUNTER → 2019-10-29 | Outpatient (CLI) | payer OTHER ==
[2017-11-11 12:40] VITALS: BP 143/65
--- NOTE | 2019-11-01 12:00 | RAD ---
DATE: 10/29/2019 8:41 AM EXAM: MAMMO TRISTA SCREENING BILATERAL HISTORY: Screening COMPARISON: 07/10/2018 Bilateral CC and MLO views of the breasts were performed. Bilateral breast tomosynthesis was performed in CC and MLO projections. This study was interpreted with the benefit of Computerized Aided Detection (CAD). FINDINGS: Breast Density: SCATTERED The breast parenchyma shows scattered fibroglandular densities. Breast parenchyma level B No suspicious masses, microcalcifications or architectural distortion is present to suggest malignancy in either breast. The visualized axillae are unremarkable. IMPRESSION: No mammographic evidence of malignancy. BI-RADS CATEGORY: 1 NEGATIVE RECOMMENDED FOLLOW-UP: 12M 12 MONTH FOLLOW-UP Annual screening mammography is recommended, unless clinically indicated sooner based on symptoms or change in physical exam. PQRS compliance statement: Patient information was entered into a reminder system with a target due date for the next mammogram. Mammography is a sensitive method for finding small breast cancers, but it does not detect them all and is not a substitute for careful clinical examination. A negative mammogram does not negate a clinically suspicious finding and should not result in delay in biopsying a clinically suspicious abnormality. "Our facility is accredited by the [employer] Mammography Program."
== END | disposition home or self-care (01) ==
LOC: MAMMO 08:33
PROVIDERS: ATTEND Family Medicine
DX: Z12.31 Encounter for screening mammogram for malignant neoplasm of breast (principal)
CPT/HCPCS: 77063; 77067

== ENCOUNTER → 2019-11-11 | Outpatient (CLI) | payer OTHER ==
[2017-11-11 12:40] VITALS: BP 143/65
[2019-11-11 08:14] LABS: BASO # 0.1 x10^3/uL (0.0-0.2); BASO % 1 % (0-3); EOS # 0.3 x10^3/uL (0.0-0.7); EOS % 2 % (0-3); HEMATOCRIT 43.4 % (36.0-47.0); HEMOGLOBIN 14.7 g/dL (12.0-15.5); LYMPH # 3.5 x10^3/uL (1.0-4.8); LYMPH % 30 % (24-48); MEAN CORPUSCULAR HEMOGLOBIN 27 pg (25-35); MEAN CORPUSCULAR HGB CONC 34 g/dL (31-37); MEAN CORPUSCULAR VOLUME 79 fL (79-100); MONO # 0.7 x10^3/uL (0.0-1.1); MONO % 6 % (0-9); NEUT # 6.9 x10^3/uL (1.8-7.7); NEUT % 60 % (31-73); PLATELET COUNT 298 x10^3/uL (140-400); RED BLOOD COUNT 5.49 x10^6/uL (3.50-5.40); RED CELL DISTRIBUTION WIDTH 19.5 % (11.5-14.5); WHITE BLOOD COUNT 11.5 x10^3/uL (4.0-11.0)
[2019-11-11 08:32] LABS: ALBUMIN 3.8 g/dL (3.4-5.0); ALBUMIN/GLOBULIN RATIO 1.2 (1.0-1.7); CALCIUM 9.3 mg/dL (8.5-10.1); GFR 56.7; POTASSIUM 4.1 mmol/L (3.5-5.1); TOTAL BILIRUBIN 0.4 mg/dL (0.2-1.0); TOTAL PROTEIN 6.9 g/dL (6.4-8.2)
== END | disposition home or self-care (01) ==
LOC: LAB 07:30
PROVIDERS: ATTEND Family Medicine
DX: E11.9 Type 2 diabetes mellitus without complications (principal); I10 Essential (primary) hypertension
CPT/HCPCS: 36415; 80053; 83036; 85025

== ENCOUNTER → 2020-03-22 | Outpatient (CLI) | payer OTHER ==
[2017-11-11 12:40] VITALS: BP 143/65
[2020-03-22 07:56] LABS: BASO # 0.1 x10^3/uL (0.0-0.2); BASO % 1 % (0-3); EOS # 0.2 x10^3/uL (0.0-0.7); EOS % 2 % (0-3); HEMATOCRIT 43.3 % (36.0-47.0); HEMOGLOBIN 14.3 g/dL (12.0-15.5); LYMPH % 30 % (24-48); MEAN CORPUSCULAR HEMOGLOBIN 26 pg (25-35); MEAN CORPUSCULAR HGB CONC 33 g/dL (31-37); MEAN CORPUSCULAR VOLUME 79 fL (79-100); MONO # 0.6 x10^3/uL (0.0-1.1); MONO % 6 % (0-9); NEUT % 60 % (31-73); PLATELET COUNT 264 x10^3/uL (140-400); RED BLOOD COUNT 5.47 x10^6/uL (3.50-5.40)
[2020-03-22 08:22] LABS: ALBUMIN 3.4 g/dL (3.4-5.0); ALBUMIN/GLOBULIN RATIO 0.9 (1.0-1.7); ALK PHOS 155 U/L (46-116); ALT (SGPT) 89 U/L (14-59); ANION GAP 10 (6-14); AST (SGOT) 26 U/L (15-37); BLOOD UREA NITROGEN 19 mg/dL (7-20); BUN/CREATININE RATIO 17 (6-20); CALCIUM 9.6 mg/dL (8.5-10.1); CARBON DIOXIDE 29 mmol/L (21-32); CHLORIDE 99 mmol/L (98-107); CHOLESTEROL 181 mg/dL (0-200); CREATININE 1.1 mg/dL (0.6-1.0); GFR 50.7; GLUCOSE 270 mg/dL (70-99); HDLC 27 mg/dL (40-60); POTASSIUM 4.3 mmol/L (3.5-5.1); SODIUM 138 mmol/L (136-145); TOTAL BILIRUBIN 0.4 mg/dL (0.2-1.0); TOTAL PROTEIN 7.1 g/dL (6.4-8.2); TRIGLYCERIDES 636 mg/dL (0-150); VLDLC 127 mg/dL (0-40)
[2020-03-22 08:24] LABS: CHOLESTEROL/HDL RATIO 6.7
[2020-03-22 13:13] LABS: CREAT RD UR 106.9 mg/dL (Not Estab.); MICROALB RD UR 42.9 ug/mL (Not Estab.)
[2020-03-23 00:11] LABS: HEMOGLOBIN A1C 10.4 % (4.8-5.6)
== END ==
LOC: LAB 07:11
PROVIDERS: ATTEND Family Medicine
DX: E11.65 Type 2 diabetes mellitus with hyperglycemia (principal); I10 Essential (primary) hypertension; E78.2 Mixed hyperlipidemia
CPT/HCPCS: 80053; 80061; 82043; 82570; 83036; 85025

== ENCOUNTER → 2020-08-09 | Outpatient (CLI) | payer OTHER ==
[2017-11-11 12:40] VITALS: BP 143/65
[~2020-08-09] MED LIST changes: -OMEP40CA45 PO; +OMEP40CA7 PO
[2020-08-09 08:14] LABS: ALBUMIN 3.7 g/dL (3.4-5.0); ALBUMIN/GLOBULIN RATIO 1.1 (1.0-1.7); CALCIUM 8.9 mg/dL (8.5-10.1); CREATININE 1.1 mg/dL (0.6-1.0); GFR 50.7; POTASSIUM 4.3 mmol/L (3.5-5.1); TOTAL BILIRUBIN 0.4 mg/dL (0.2-1.0); TOTAL PROTEIN 7.1 g/dL (6.4-8.2)
[2020-08-09 08:15] LABS: CHOLESTEROL/HDL RATIO 3.7
[2020-08-10 00:08] LABS: HEMOGLOBIN A1C 10.9 % (4.8-5.6)
== END ==
LOC: LAB 07:15
PROVIDERS: ATTEND Family Medicine
DX: E11.9 Type 2 diabetes mellitus without complications (principal); E78.2 Mixed hyperlipidemia
CPT/HCPCS: 36415; 80053; 80061; 83036

== ENCOUNTER 2020-09-23 12:45 | Emergency (ER) | payer OTHER ==
[~2020-09-23] VITALS: Ht 154.9 cm; Wt 98.0 kg
[2020-09-23 17:08] VITALS: BP 126/77
--- NOTE | 2020-09-23 18:20 | RAD ---
EXAM: Right fourth finger, 3 views. HISTORY: Pain. COMPARISON: None. FINDINGS: 3 views of the right fourth finger are obtained. There is no convincing acute fracture. The re is a chronic ossicle or calcification along the radial aspect of the fourth distal interphalangeal joint. There is a similar-appearing smaller finding along the ulnar aspect of the third distal inter phalangeal joint. This is likely degenerative or the sequela of remote injury. There is a tiny ossicl e at the base of the second middle phalanx. There is mild first carpal metacarpal joint spurring. The re is slight wrist chondrocalcinosis. IMPRESSION: No acute osseous finding. Electronically signed by: Farrah Lee MD (09/23/2020 6:18 PM) [facility]
[2020-09-23] MEDS ORDERED: ACETAMINOPHEN 325 MG TABLET. PO ONE (18:30)
[2020-09-23] MEDS ORDERED: DIPH,PERTUSS(ACELL),TET VAC/PF 0.5 ML SYRINGE. VAX IM ONE (18:30)
[2020-09-23] MEDS ORDERED: BACITRACIN TOPICAL OINT PACKET. TP ONE (19:00)
[2020-09-23] MEDS ORDERED: CEPH500T PO (20:03)
--- NOTE | 2020-09-23 20:03 | PHYS DOC ---
Past Medical History Past Medical History: Asthma, Diabetes-Type I, High Cholesterol Past Surgical History: Hysterectomy, Other Additional Past Surgical Histo: GALL BLADDER REMOVED Smoking Status: Current Every Day Smoker Alcohol Use: Rarely Drug Use: None General Adult EDM: Chief Complaint: LACERATION/AVULSION HPI: HPI: Patient is a 59 year old female presents to the emergency department with chief complaint of lacerating her right ring finger with a razor blade while trying to replace the razor blade in the boothe approximately an hour prior to her arrival to the emergency department. Patient complains of pain, states that it did bleed, states she put pressure on the area and came straight to the emergency department. Patient denies any homicidal suicidal ideations. Patient denies an y loss of sensation to the lacerated finger. Patient reports her last tetanus immunization was greater than 5 years ago. Patient denies any other physical complaints or physical concerns. Review of Systems: Review of Systems: 14 body systems of review of systems have been reviewed. See HPI for pertinent positives and negative responses, otherwise all other systems are negative, nonpertinent or noncontributory. Constitutional: Negative except as outlined in HPI above. Skin: Negative except as outlined in HPI above. Eyes: Negative except as outlined in HPI above. HENT: Negative except as outlined in HPI above. Respiratory: Negative except as outlined in HPI above. Cardiovascular: Negative except as outlined in HPI above. GI: Negative except as outlined in HPI above. : Negative except as outlined in HPI above. Musculoskeletal: Negative except as outlined in HPI above. Integument: Negative except as outlined in HPI above. Neurologic: Negative except as outlined in HPI above. Endocrine: Negative except as outlined in HPI above. Lymphatic: Negative except as outlined in HPI above. Psychiatric: Negative except as outlined in HPI above. Heart Score: C/O Chest Pain: No Risk Factors: Risk Factors: DM, Current or recent (<one month) smoker, HTN, HLP, family history of CAD, obesity. Risk Scores: Score 0 - 3: 2.5% MACE over next 6 weeks - Discharge Home Score 4 - 6: 20.3% MACE over next 6 weeks - Admit for Clinical Observation Score 7 - 10: 72.7% MACE over next 6 weeks - Early Invasive Strategies Current Medications: Current Medications Medications (Trade) Dose Ordered Sig/Marcus Start Time Stop Time Status Last Admin Dose Admin Acetaminophen (Tylenol) 650 mg 1X ONCE 09/23/20 18:30 09/23/20 18:31 DC 09/23/20 19:24 650 MG Bacitracin (Bacitracin Zinc Oint Pkt) 1 pkt 1X ONCE 09/23/20 19:00 09/23/20 19:01 DC 09/23/20 19:24 1 PKT Diphtheria/ Tetanus/Acell Pertussis (ADACEL TDap SYRINGE) 0.5 ml ONCE ONCE 09/23/20 18:30 09/23/20 18:31 DC 09/23/20 19:25 0.5 ML Allergies: Allergies: Allergies Coded Allergies Type Severity Reaction Last Updated Verified No Known Drug Allergies 11/04/17 No Physical Exam: PE: Constitutional: Well developed, well nourished, no acute distress, non-toxic appearance. 59-year-old female in no apparent distress. HENT: Normocephalic, atraumatic. Eyes: Conjunctiva normal, no discharge. Neck: Normal range of motion, no stridor. Cardiovascular: No cyanosis appreciated, distal cap refill less than 2 seconds. Lungs & Thorax: Patient is in no respiratory distress, no audible adventitious lung sounds appreciated. Abdomen: Nontender, no abnormalities noted. Skin: Warm, dry, no erythema, no rash. See extremity note for focused skin assessment. Back: No tenderness, no deformities. Extremities: No tenderness, no cyanosis, no clubbing, ROM intact, no edema. Except for right ring finger medial aspect at PIP joint skin surfaces area has 4 mm superficial laceration skin flap, patient does complain of pain to palpation and movement. Distal cap refill is less than 2 seconds, there is no swelling or edema appreciated. No deformities appreciated. Neurologic: Alert and oriented X 3, normal motor function, normal sensory function, no focal deficits noted. Psychologic: Affect normal, judgement normal, mood normal. Current Patient Data: Vital Signs: Vital Signs Date Time Temp Pulse Resp B/P (MAP) Pulse Ox O2 Delivery O2 Flow Rate FiO2 09/23/20 17:08 98.5 70 12 126/77 (91) 95 Room Air 98.5 EKG: EKG: [] Radiology/Procedures: Radiology/Procedures: PATIENT: GRACIA DOE ACCOUNT: [id number] : 1960 LOCATION: ER AGE: 59 SEX: F EXAM STATUS: REG ER ORD. PHYSICIAN: ALBERTO HOLLAND APRN REASON: att ring finger PROCEDURE: FINGER(S) RIGHT EXAM: Right fourth finger, 3 views. HISTORY: Pain. COMPARISON: None. FINDINGS: 3 views of the right fourth finger are obtained. There is no convincing acute fracture. There is a chronic ossicle or calcification along the radial aspect of the fourth distal interphalangeal joint. There is a similar- appearing smaller finding along the ulnar aspect of the third distal interphalangeal joint. This is likely degenerative or the sequela of remote injury. There is a tiny ossicle at the base of the second middle phalanx. There is mild first carpal metacarpal joint spurring. There is slight wrist chondrocalcinosis. IMPRESSION: No acute osseous finding. Electronically signed by: Farrah Story MD (09/23/2020 6:18 PM) [facility] DICTATED and SIGNED BY: FARRAH STORY MD DATE: 09/23/20 [id number] Course & Med Decision Making: Course & Med Decision Making Pertinent Labs and Imaging studies reviewed. (See chart for details) 59-year-old female, vital signs reviewed, presents to the emergency department complaining of finger laceration after trying to replace a razor blade in her shaving razor. Physical examination consistent with patient's explanation of events. Laceration is superficial, nonfull-thickness, will order finger x-ray t o rule out foreign body, cleanse laceration site for further assessment. Patient's last tetanus immunization greater than 5 years ago, will give Adacel/Tdap today in the emergency department. X-ray negative for acute foreign body, patient's finger laceration soaked in Betadine for 15 minutes, cleansed with normal saline. After further assessment of the laceration, this is a avulsion skin flap, the patient and I made a joint decision to place bacitracin over the site and cover with Band-Aid. Patient gave verbal understanding of wound care at home. Return to ER precautions and concerns, routine follow-up with PCP. Will cover with prophylactic Keflex. Discussed with the patient all findings and diagnostic testing as well as the need to follow-up with their primary care provider for further evaluation and treatment or return to the ED if any new or worsening symptoms. Strict return precautions were also discussed at length, the patient voiced understanding and agreement with the discharge planning. The patient was nontoxic in appearance, in no apparent distress, and hemodynamically stable at the time of disposition. Dragon Disclaimer: Dragon Disclaimer: This electronic medical record was generated, in whole or in part, using a voice recognition dictation system. Departure Departure Impression: Primary Impression: Avulsion of skin of finger Qualified Codes: S61.209A - Unspecified open wound of unspecified finger without damage to nail, initial encounter Disposition: HOME / SELF CARE / HOMELESS Condition: GOOD Referrals: SID ADKINS MD (PCP) Patient Instructions: Wound Care, [id number] Additional Instructions: You were seen today in the emergency department for a skin avulsion/small superficial laceration to your right ring finger. An x-ray was performed, there was no foreign bodies or broken bones. You and I made a joint decision to not repair the skin injury with sutures, your finger injury was cleaned with Betadine solution, rinsed with normal saline, and dressed with bacitracin and a Band-Aid. Please continue to do to this at least twice a day for the next 7 days as we discussed. I am also prescribing you an antibiotic to take to pre vent any type of infection. Please note that there is no infection noted today. Thank you for visiting our Emergency Department. It was a pleasure taking care of you today in the emergency department and we appreciate you trusting us with your care. If any additional problems come up don't hesitate to return to visit us. Please follow up with your primary care provider so they can plan additional care if needed and know about the problem that you had. If symptoms worsen come back to the Emergency Department. Any concerning symptoms that start such as chest pain, shortness of air, weakness or numbness on one side of the body, running high fevers or any other concerning symptoms return to the ER. EMERGENCY DEPARTMENT GENERAL DISCHARGE INSTRUCTIONS Thank you for coming to [facility] Emergency Department (ED) today and trusting us with you care. We trust that you had a positive experience in our Emergency Department. If you wish to speak to the department management, you may call the Director at [phone]. YOUR FOLLOW UP INSTRUCTIONS ARE FOLLOWS: 1. Do you have a private Doctor? If you do not have a private doctor, please ask for a resource list of physicians or clinics that may be able to assist you with follow up care. 2. The Emergency Physicain has interpreted your x-rays. The X-Ray specialist will also review them. If there is a change in the findings, you will be notified in 48 hours when at all possible. 3. A lab test or culture has been done, your results will be reviewed and you will be notified if you need a change in treatment. ADDITIONAL INSTRUCTIONS AND INFORMATION: 1. Your care today has been supervised by a physician who is specially trained in emergency care. Many problems require more than one evaluation for a complete diagnosis and treatment. We recommend that you schedule your follow up appointment as recommended to ensure complete treatment of you illness or injury. If you are unable to obtain follow up care and continue to have a problem, or if your condition worsens, we recommend that you return to the ED. 2. We are not able to safely determine your condition over the phone nor are we able to give sound medical advice over the phone. For these safety reasons, if you call for medical advice we will ask you to come to the ED for further evaluation. 3. If you have any questions regarding these discharge instructions please call the ED at [phone]. SAFETY INFORMATION: In the interest of safety, wellness, and injury prevention; we encourage you to wear your sealbelt, if you smoke; quite smoking, and we encourage family to use a protective helmet for bicycling and other sporting events that present an increased risk for head injury. IF YOUR SYMPTOMS WORSEN OR NEW SYMPTOMS DEVELOP, OR YOU HAVE CONCERNS ABOUT YOUR CONDITION; OR IF YOUR CONDITION WORSENS WHILE YOU ARE WAITING FOR YOUR FOLLOW UP APPOINTMENT; EITHER CONTACT YOUR PRIMARY CARE DOCTOR, THE PHYSICIAN WHOSE NAME AND NUMBER YOU WERE GIVEN, OR RETURN TO THE ED IMMEDIATELY. Scripts Cephalexin (CEPHALEXIN) 500 Mg Tablet 1 TAB PO TID for skin injury for 7 Days, #21 TAB 0 Refills Prov: ALBERTO HOLLAND APRN 09/23/20 ALBERTO HOLLAND APRN Sep 23, 2020 20:03
== END 2020-09-23 20:18 | disposition home or self-care (01) ==
LOC: ER 12:45
DX: S61.214A Laceration without foreign body of right ring finger without damage to nail, initial encounter (principal); E78.00 Pure hypercholesterolemia, unspecified; J45.909 Unspecified asthma, uncomplicated; M11.231 Other chondrocalcinosis, right wrist; E10.9 Type 1 diabetes mellitus without complications; F17.200 Nicotine dependence, unspecified, uncomplicated; Y28.8XXA Contact with other sharp object, undetermined intent, initial encounter; Y93.89 Activity, other specified; Y92.89 Other specified places as the place of occurrence of the external cause; Y99.8 Other external cause status
CPT/HCPCS: 73140; 90471; 90715; 99283-25

== ENCOUNTER → 2020-10-04 | Outpatient (CLI) | payer OTHER ==
[2020-09-23 17:08] VITALS: BP 126/77
[~2020-10-04] MED LIST changes: +CEPH500T PO
[2020-10-04 08:23] LABS: ALBUMIN 3.5 g/dL (3.4-5.0); CALCIUM 9.5 mg/dL (8.5-10.1); GFR 56.6; MAGNESIUM 1.7 mg/dL (1.8-2.4); POTASSIUM 4.2 mmol/L (3.5-5.1); TOTAL BILIRUBIN 0.4 mg/dL (0.2-1.0)
== END ==
LOC: LAB 07:24
PROVIDERS: ATTEND Family Medicine
DX: E11.9 Type 2 diabetes mellitus without complications (principal)
CPT/HCPCS: 36415; 80053; 83036; 83735

== ENCOUNTER → 2021-01-02 | Outpatient (CLI) | payer OTHER ==
[2021-01-02 08:21] LABS: BASO # 0.1 x10^3/uL (0.0-0.2); BASO % 1 % (0-3); EOS # 0.3 x10^3/uL (0.0-0.7); EOS % 3 % (0-3); HEMATOCRIT 41.9 % (36.0-47.0); HEMOGLOBIN 14.1 g/dL (12.0-15.5); LYMPH # 3.2 x10^3/uL (1.0-4.8); LYMPH % 30 % (24-48); MEAN CORPUSCULAR HEMOGLOBIN 27 pg (25-35); MEAN CORPUSCULAR HGB CONC 34 g/dL (31-37); MEAN CORPUSCULAR VOLUME 80 fL (79-100); MONO # 0.8 x10^3/uL (0.0-1.1); MONO % 7 % (0-9); NEUT # 6.1 x10^3/uL (1.8-7.7); NEUT % 59 % (31-73); PLATELET COUNT 257 x10^3/uL (140-400); RED BLOOD COUNT 5.24 x10^6/uL (3.50-5.40); RED CELL DISTRIBUTION WIDTH 18.5 % (11.5-14.5); WHITE BLOOD COUNT 10.4 x10^3/uL (4.0-11.0)
[2021-01-02 08:34] LABS: ALBUMIN 3.6 g/dL (3.4-5.0); CREATININE 0.8 mg/dL (0.6-1.0); GFR 72.9; TOTAL BILIRUBIN 0.4 mg/dL (0.2-1.0); TOTAL PROTEIN 7.1 g/dL (6.4-8.2)
[2021-01-02 14:12] LABS: CREAT RD UR 59.6 mg/dL (Not Estab.); MICROALB RD UR 12.9 ug/mL (Not Estab.)
[2021-01-03 01:15] LABS: HEMOGLOBIN A1C 9.1 % (4.8-5.6)
== END ==
LOC: LAB 07:50
PROVIDERS: ATTEND Family Medicine
DX: E11.9 Type 2 diabetes mellitus without complications (principal); E78.2 Mixed hyperlipidemia
CPT/HCPCS: 36415; 80053; 80061; 82043; 82570; 83036; 83721; 85025

== ENCOUNTER 2021-01-06 14:15 | Emergency (ER) | payer OTHER ==
[~2021-01-06] VITALS: Ht 154.9 cm; Wt 100.0 kg
--- NOTE | 2021-01-06 14:41 | PHYS DOC ---
Past Medical History Past Medical History: Asthma, Bronchitis, Diabetes-Type I, High Cholesterol Past Surgical History: Hysterectomy, Other Additional Past Surgical Histo: GALL BLADDER REMOVED Smoking Status: Current Every Day Smoker Alcohol Use: Rarely Drug Use: None General Adult EDM: Chief Complaint: SHORTNESS OF BREATH HPI: HPI: Patient is a 60-year-old female that presents today with nasal congestion low-grade fever and a cough. Patient is requesting a Covid test at this time, she states her symptoms started yesterday with low-grade fever of 99.8, scratchy throat, nasal congestion, and cough. 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 Patient does not report an increase in use of her asthma medication, denies seasonal allergies] Review of Systems: Review of Systems: Constitutional: low grade fever [] Eyes: Denies change in visual acuity. [] HENT: nasal congestion or sore throat. [] Respiratory: cough Cardiovascular: Denies chest pain or edema. [] GI: Denies abdominal pain, nausea, vomiting, bloody stools or diarrhea. [] : Denies dysuria. [] Musculoskeletal: Denies back pain or joint pain. [] Integument: Denies rash. [] Neurologic: Denies headache, focal weakness or sensory changes. [] Endocrine: Denies polyuria or polydipsia. [] Lymphatic: Denies swollen glands. [] Psychiatric: Denies depression or anxiety. [] Heart Score: C/O Chest Pain: N/A Risk Factors: Risk Factors: DM, Current or recent (<one month) smoker, HTN, HLP, family history of CAD, obesity. Risk Scores: Score 0 - 3: 2.5% MACE over next 6 weeks - Discharge Home Score 4 - 6: 20.3% MACE over next 6 weeks - Admit for Clinical Observation Score 7 - 10: 72.7% MACE over next 6 weeks - Early Invasive Strategies Allergies: Allergies: Allergies Coded Allergies Type Severity Reaction Last Updated Verified No Known Drug Allergies 11/04/17 No Physical Exam: PE: Constitutional: Well developed, well nourished, no acute distress, non-toxic appearance. [] HENT: Normocephalic, atraumatic, bilateral external ears normal, oropharynx moist, reddened, no exudate noted, tympanic membranes within normal limits, bilateral nails reddened Eyes: PERRLA, EOMI, conjunctiva normal, no discharge. [] Neck: Normal range of motion, no tenderness, supple, no stridor. [] Cardiovascular:Heart rate regular rhythm, no murmur [] Lungs & Thorax: Bilateral breath sounds clear to auscultation [] Abdomen: Bowel sounds normal, soft, no tenderness, no masses, no pulsatile masses. [] Skin: Warm, dry, no erythema, no rash. [] Back: No tenderness, no CVA tenderness. [] Extremities: No tenderness, no cyanosis, no clubbing, ROM intact, no edema. [] Neurologic: Alert and oriented X 3, normal motor function, normal sensory function, no focal deficits noted. [] Psychologic: Affect normal, judgement normal, mood normal. [] Current Patient Data: Labs: Laboratory Tests Test 01/06/21 14:29 Influenza Type A Antigen Negative Influenza Type B Antigen Negative SARS-CoV-2 Antigen (Rapid) Negative Vital Signs: Vital Signs Date Time Temp Pulse Resp B/P (MAP) Pulse Ox O2 Delivery O2 Flow Rate FiO2 01/06/21 14:31 98.7 88 16 163/72 (102) 95 Room Air 98.7 EKG: EKG: [] Radiology/Procedures: Radiology/Procedures: [] Course & Med Decision Making: Course & Med Decision Making Pertinent Labs and Imaging studies reviewed. (See chart for details) Rapid Covid and influenza swabs were negative, will send patient home with strict instructions to quarantine until the PCR Covid results are back. Treat low-grade fever with Tylenol and/or ibuprofen as labeled directed, if symptoms continue follow-up with your primary care physician. [] Dragon Disclaimer: Dragon Disclaimer: This electronic medical record was generated, in whole or in part, using a voice recognition dictation system. Departure Departure Impression: Primary Impression: Suspected COVID-19 virus infection Disposition: HOME / SELF CARE / HOMELESS Condition: STABLE Referrals: SID ADKINS MD (PCP) Patient Instructions: Cough, Adult Additional Instructions: You have been tested for or diagnosed with COVID-19. It is an infection caused by a new type of coronavirus. COVID-19 will cause cold-like or mild flu symptoms in most. It can cause more severe symptoms like problems breathing in some. There is no treatment for COVID-19. The body will clear the infection over time. Self-care will help to ease discomfort. Steps to Take: Self-Care Rest as needed. Healthy habits may help you feel better. Steps include: Choose healthy foods including fruits and vegetables. Drink water throughout the day. Get plenty of sleep each night. If you smoke, try to quit. It may ease breathing. Avoid alcohol. Keep Others Healthy The virus can spread to others. Droplets are released every time you sneeze or cough. The droplets can get into the mouth, nose, or eyes of people near you and lead to infection. To lower the chances of spreading COVID-19 to others: Stay at home until your doctor has said it is safe to leave. If you tested positive this will mean staying isolated until both of the following are true: At least 7 days have passed since the start of illness. You are free of fever for at least 72 hours without the use of medicine. During this time: - Avoid public areas, events, or transportation. Do not return to work or school until your doctor has said it is safe to do so. - Call ahead if you need to go to a medical center. Let them know you may have COVID-19. It will help them guide you where to go. They may also ask you to wear a facemask when you come to the office. - If you call for emergency medical services, let them know you may have COVID- 19. While at home: - Try to avoid close contact with others. Stay about 6 feet away. - If possible, spend most of your time in a separate room from others. - Use a face mask if you will be in close contact with others such as sharing a room or vehicle. - Have someone wipe down common surfaces in the home. Use household tracer bullet section supervisor every day on areas like doorknobs, counters, or sinks. - Cough or sneeze into a tissue. Throw the tissue away right after use. If a tissue is not available, cough or sneeze into your elbow. - Wash your hands often. Wash them after sneezing or coughing. Use soap and water and wash for at least 20 seconds. Alcohol based hand oil tank car cleaner can be used if soap and water is not available. - Do not prepare food for others. Avoid sharing personal items like forks, spoons, or toothbrushes. - Avoid close contact with pets while you are sick. There is no evidence of the virus passing to pets. This is a safety step until more is known about this virus. Isolation can be frustrating. Social interaction can help. Keep in touch with friends and family through phone and tech options. You can still interact with others in your home, just keep a safe distance of about 6 feet. Follow-up: Your doctors office will check in with you to see if there are any changes in your health. You may be asked to keep track of symptoms to share with them. They will also let you know when you are clear to be in public again. Problems to Look Out For: Contact your doctor if your recovery is not going as you expect. Get emergency care if you have problems such as: - Trouble breathing - Nonstop chest pain or pressure - Changes in awareness, confusion, or problems waking - Lips or face have bluish color - Worsening of symptoms If you think you have an emergency, call for emergency medical services right away. As taken from [facility] MARNI JENKINS APRN Jan 06, 2021 14:41
[2021-01-06 15:06] LABS: INFLUENZA A PATIENT NEGATIVE (NEGATIVE); INFLUENZA B PATIENT NEGATIVE (NEGATIVE)
--- NOTE | 2021-01-07 16:41 | NUR ---
IP: Informed pt of negative covid test,. Pt verbalized understanding.
== END 2021-01-06 15:48 | disposition home or self-care (01) ==
LOC: ER 14:15
DX: R50.9 Fever, unspecified (principal); Z20.822 Contact with and (suspected) exposure to COVID-19; R05.9 Cough, unspecified; R09.81 Nasal congestion; J45.909 Unspecified asthma, uncomplicated; E10.9 Type 1 diabetes mellitus without complications; E78.00 Pure hypercholesterolemia, unspecified; F17.200 Nicotine dependence, unspecified, uncomplicated
CPT/HCPCS: 87426; 87804; 99283; U0003; U0005